=== PATIENT | female | born 1945 | race Caucasian/White ===

== ENCOUNTER 2016-03-14 06:20 | Inpatient (IN) ==
[2016-03-14 07:20] LABS: Basophils % 0.5 %; Eosinophils # 0.2 K/mcL (0.0-0.6); Eosinophils % 2.6 %; Hematocrit 38.3 % (35.3-44.9); Immature Granulocytes % 0.9 % (0-4); Lymphocytes # 1.6 K/mcL (0.6-4.6); Lymphocytes % 27.9 %; Mean Corpuscular HGB Conc 33.9 g/dL (31.6-35.5); Mean Corpuscular Hemoglobin 29.4 pg (28.0-33.3); Mean Corpuscular Volume 86.7 fL (83.0-100.0); Monocytes # 0.3 K/mcL (0.0-1.3); Monocytes % 5.5 %; Neutrophils # 3.7 K/mcL (1.6-8.9); Platelet Count 136 K/mcL (140-400); Red Blood Count 4.42 M/mcL (3.82-4.97); Segmented Neutrophils % 62.6 %
[2016-03-14] MEDS ORDERED: Aspirin 81 MG TAB.CHEW PO ONE (07:24)
[2016-03-14] MEDS ORDERED: Ondansetron 4 MG/2 ML VIAL IVP ONE (07:33)
--- NOTE | 2016-03-14 07:35 | Emergency Department Note ---
Disposition Clinical Impression: Atypical chest pain Chest pain Qualifiers: Chest pain type: unspecified Qualified Code(s): R07.9 - Chest pain, unspecified ST elevation myocardial infarction (STEMI) Qualifiers: Involved coronary artery: unspecified coronary artery Qualified Code(s): I21.3 - ST elevation (STEMI) myocardial infarction of unspecified site Disposition: Admitted As Inpatient Condition: Good General Adult HPI - General Chief complaint: ED Chest Pain Stated complaint: chest pain/nausea Time Seen by Provider: 03/14/16 07:17 Source: patient Limitations: no limitations Nursing Notes Reviewed: Yes Vital Signs Reviewed: Yes - History of Present Illness Pain Scale: 0 - Related Data Home Medications Medication Instructions Recorded Confirmed Doxepin HCl 100 mg PO HS 03/14/16 03/14/16 Insulin Glargine,Hum.rec.anlog 30 unit SQ DAILY 03/14/16 03/14/16 [Lantus Solostar] Meloxicam 15 mg PO DAILY 03/14/16 03/14/16 Metoprolol Tartrate [Lopressor] 50 mg PO BID 03/14/16 03/14/16 Omeprazole [PriLOSEC] 40 mg PO DAILY 03/14/16 03/14/16 Pravastatin Sodium [Pravachol] 40 mg PO DAILY 03/14/16 03/14/16 Sitagliptin Phos/Metformin HCl 1 tab PO DAILY 03/14/16 03/14/16 [Janumet Xr 50-1,000 mg Tablet] Triamterene/Hydrochlorothiazid 1 tab PO DAILY 03/14/16 03/14/16 [Triamterene-Hctz 75-50 mg Tab] Allergies Allergy/AdvReac Type Severity Reaction Status Date / Time nitrofurantoin Allergy Hives Verified 03/14/16 06:22 [From Macrodantin] Penicillins Allergy Hives Verified 03/14/16 06:22 Past Medical History - Past Medical History Medical history: Reports: coronary artery disease, diabetes, hyperlipidemia, hypertension, myocardial infarction Psychiatric history: Reports: no psych history SENIOR TECHNICAL SPECIALIST history: Reports: no SENIOR TECHNICAL SPECIALIST history - Social History Smoking Status: Never smoker Smokeless Tobacco Status: No Alcohol use: Reports: none Drug use: Reports: none Physical Exam - General Limitations: no limitations General appearance: alert Course Vital Signs Temperature 97.4 F L 03/14/16 06:24 Pulse Rate 70 03/14/16 06:24 Respiratory Rate 20 03/14/16 06:24 Blood Pressure 155/80 03/14/16 06:24 O2 Sat by Pulse Oximetry 98 03/14/16 06:24 Temperature 97.4 F L 03/14/16 06:24 Pulse Rate 96 03/14/16 10:57 Respiratory Rate 18 03/14/16 10:57 Blood Pressure 171/105 03/14/16 10:45 O2 Sat by Pulse Oximetry 98 03/14/16 10:57 Oxygen Delivery Oxygen Delivery Nasal Cannula Medical Decision Making - MDM Narrative Medical decision making narrative: I examined this patient and my medical decision-making was reviewed with the CUSTOMER RELATIONS COORDINATOR/PA/Advanced Practice Nurse/Resident Physician. I agree with the documented findings, disposition and treatment plan as described except to the extent set forth below. Evaluate this patient Dr. Caldera, agree with his evaluation and management plan, supervise care the patient's stay. Patient started having chest pain about 9:00 last night and it went away that starting at 2 AM. Left-sided into her left shoulder. Says feels similar to when she had her stents placed she said that has been done years ago was done in [place] by Dr. Quintanilla. She has also been nauseous but has not vomited. She appears pale here but has not been having any vomiting no blood noted dark- colored stool. She has no abdominal pain. Under nitroglycerin trial on her aspirin cardiac workup and she will need admission. She is in agreement with this plan. Chest X-Ray 03/14/16 07:24 IMPRESSION: No acute cardiopulmonary disease. D/ / Eb Kong MD / Eb Kong MD Interpreting Provider: Eb Kong MD 0900 hrs.: Patient did not get any relief with her nitroglycerin trial. Because of her pain were a CTA of her chest to rule out dissection. She is given fluids here. Her troponin is slightly positive. Once her CTA is read and if that is negative then we will start her on aspirin. She is in agreement with this plan. 1010 hrs.: Hospitalist except's patients want her started on heparin for possible unstable angina. Patient's admitted this time. Critical care time excluding any seperately procedures 30 minutes. 1035 hrs.: Patient was admitted and she called me [facility] get chest pain again. On her monitor look like she had some ST segment elevations were repeating EKG and she did. STEMI alert was called. She had already gotten aspirin and heparin be started on Plavix called the cardiology and they have taken her to the Competency Evaluated Nurse Aide at this time impression is chest pain with acute STEMI. Patient's EKGs were compared with the first ones noting that she did not have a STEMI on presentation. This evolved during her observation time here in the emergency department. - Lab Data Result diagrams: 03/14/16 08:26 03/14/16 08:26 Lab Results 03/14/16 03/14/16 03/14/16 Range/Units 07:16 07:16 07:16 WBC 5.9 (4.3-11.1) K/mcL RBC 4.42 (3.82-4.97) M/mcL Hgb 13.0 (11.5-15.4) g/dL Hct 38.3 (35.3-44.9) % MCV 86.7 (83.0-100.0) fL MCH 29.4 (28.0-33.3) pg MCHC 33.9 (31.6-35.5) g/dL RDW 13.0 (11.5-14.5) % Plt Count 136 L (140-400) K/mcL MPV 9.0 L (9.4-12.4) fL Immature Gran % 0.9 (0-4) % Seg Neutrophils % 62.6 % Lymphocytes % 27.9 % Monocytes % 5.5 % Eosinophils % 2.6 % Basophils % 0.5 % Neutrophils # 3.7 (1.6-8.9) K/mcL Lymphocytes # 1.6 (0.6-4.6) K/mcL Monocytes # 0.3 (0.0-1.3) K/mcL Eosinophils # 0.2 (0.0-0.6) K/mcL Basophils # 0.0 (0.0-0.2) K/mcL PT (9.4-12.1) Seconds INR APTT (26.0-36.0) Seconds Sodium 135 L (136-145) mEq/L Potassium 3.6 (3.5-4.5) mEq/L Chloride 98 (98-109) mEq/L Carbon Dioxide 24 (19-29) mEq/L BUN 29 H (7-20) mg/dL Creatinine 1.16 H (0.57-1.11) mg/dL Est GFR ( Amer) 56 L (> 60) Est GFR (Non-Af Amer) 46 L (> 60) BUN/Creatinine Ratio 25 (6-26) Glucose 237 H (70-99) mg/dL Calculated Osmolality 294 (280-300) Calcium 9.4 (8.6-10.8) mg/dL Total Bilirubin 0.3 (0.2-1.2) mg/dL Direct Bilirubin 0.1 (0.0-0.5) mg/dL Indirect Bilirubin 0.2 (0.0-1.2) mg/dL AST 15 (5-34) Units/L ALT 10 (0-55) Units/L Alkaline Phosphatase 71 (38-126) Units/L Troponin I 0.03 (0-0.03) ng/mL Serum Total Protein 6.8 (6.0-8.3) g/dL Albumin 3.6 (3.5-5.0) g/dL Globulin 3.2 (2.4-3.5) g/dL Albumin/Globulin Ratio 1.1 (1.1-2.2) 03/14/16 03/14/16 03/14/16 Range/Units 08:26 08:26 08:26 WBC 6.8 (4.3-11.1) K/mcL RBC 4.27 (3.82-4.97) M/mcL Hgb 12.6 (11.5-15.4) g/dL Hct 37.5 (35.3-44.9) % MCV 87.8 (83.0-100.0) fL MCH 29.5 (28.0-33.3) pg MCHC 33.6 (31.6-35.5) g/dL RDW 13.1 (11.5-14.5) % Plt Count 139 L (140-400) K/mcL MPV 9.3 L (9.4-12.4) fL Immature Gran % 0.7 (0-4) % Seg Neutrophils % 74.6 % Lymphocytes % 19.0 % Monocytes % 3.8 % Eosinophils % 1.3 % Basophils % 0.6 % Neutrophils # 5.1 (1.6-8.9) K/mcL Lymphocytes # 1.3 (0.6-4.6) K/mcL Monocytes # 0.3 (0.0-1.3) K/mcL Eosinophils # 0.1 (0.0-0.6) K/mcL Basophils # 0.0 (0.0-0.2) K/mcL PT 10.8 (9.4-12.1) Seconds INR 1.0 APTT 27.1 (26.0-36.0) Seconds Sodium 137 (136-145) mEq/L Potassium 4.1 (3.5-4.5) mEq/L Chloride 98 (98-109) mEq/L Carbon Dioxide 26 (19-29) mEq/L BUN 29 H (7-20) mg/dL Creatinine 1.08 (0.57-1.11) mg/dL Est GFR ( Amer) > 60 (> 60) Est GFR (Non-Af Amer) 50 L (> 60) BUN/Creatinine Ratio 27 H (6-26) Glucose 241 H (70-99) mg/dL Calculated Osmolality 298 (280-300) Calcium 9.4 (8.6-10.8) mg/dL Total Bilirubin (0.2-1.2) mg/dL Direct Bilirubin (0.0-0.5) mg/dL Indirect Bilirubin (0.0-1.2) mg/dL AST (5-34) Units/L ALT (0-55) Units/L Alkaline Phosphatase (38-126) Units/L Troponin I (0-0.03) ng/mL Serum Total Protein (6.0-8.3) g/dL Albumin (3.5-5.0) g/dL Globulin (2.4-3.5) g/dL Albumin/Globulin Ratio (1.1-2.2) 03/14/16 Range/Units 08:26 WBC (4.3-11.1) K/mcL RBC (3.82-4.97) M/mcL Hgb (11.5-15.4) g/dL Hct (35.3-44.9) % MCV (83.0-100.0) fL MCH (28.0-33.3) pg MCHC (31.6-35.5) g/dL RDW (11.5-14.5) % Plt Count (140-400) K/mcL MPV (9.4-12.4) fL Immature Gran % (0-4) % Seg Neutrophils % % Lymphocytes % % Monocytes % % Eosinophils % % Basophils % % Neutrophils # (1.6-8.9) K/mcL Lymphocytes # (0.6-4.6) K/mcL Monocytes # (0.0-1.3) K/mcL Eosinophils # (0.0-0.6) K/mcL Basophils # (0.0-0.2) K/mcL PT (9.4-12.1) Seconds INR APTT (26.0-36.0) Seconds Sodium (136-145) mEq/L Potassium (3.5-4.5) mEq/L Chloride (98-109) mEq/L Carbon Dioxide (19-29) mEq/L BUN (7-20) mg/dL Creatinine (0.57-1.11) mg/dL Est GFR ( Amer) (> 60) Est GFR (Non-Af Amer) (> 60) BUN/Creatinine Ratio (6-26) Glucose (70-99) mg/dL Calculated Osmolality (280-300) Calcium (8.6-10.8) mg/dL Total Bilirubin (0.2-1.2) mg/dL Direct Bilirubin (0.0-0.5) mg/dL Indirect Bilirubin (0.0-1.2) mg/dL AST (5-34) Units/L ALT (0-55) Units/L Alkaline Phosphatase (38-126) Units/L Troponin I 0.05 H* (0-0.03) ng/mL Serum Total Protein (6.0-8.3) g/dL Albumin (3.5-5.0) g/dL Globulin (2.4-3.5) g/dL Albumin/Globulin Ratio (1.1-2.2)
[2016-03-14 07:37] LABS: Albumin 3.6 g/dL (3.5-5.0); Albumin/Globulin Ratio 1.1 (1.1-2.2); Bilirubin,Direct 0.1 mg/dL (0.0-0.5); Bilirubin,Indirect 0.2 mg/dL (0.0-1.2); Bilirubin,Total 0.3 mg/dL (0.2-1.2); Calcium 9.4 mg/dL (8.6-10.8); Globulin 3.2 g/dL (2.4-3.5); Potassium 3.6 mEq/L (3.5-4.5); Total Protein 6.8 g/dL (6.0-8.3)
[2016-03-14] MEDS: Nitroglycerin 0.4 MG TAB.SUBL SL ONE ×2 (07:45→08:09)
[2016-03-14 08:34] LABS: Basophils % 0.6 %; Eosinophils # 0.1 K/mcL (0.0-0.6); Eosinophils % 1.3 %; Hematocrit 37.5 % (35.3-44.9); Hemoglobin 12.6 g/dL (11.5-15.4); Immature Granulocytes % 0.7 % (0-4); Lymphocytes # 1.3 K/mcL (0.6-4.6); Mean Corpuscular HGB Conc 33.6 g/dL (31.6-35.5); Mean Corpuscular Hemoglobin 29.5 pg (28.0-33.3); Mean Corpuscular Volume 87.8 fL (83.0-100.0); Mean Platelet Volume 9.3 fL (9.4-12.4); Monocytes # 0.3 K/mcL (0.0-1.3); Monocytes % 3.8 %; Neutrophils # 5.1 K/mcL (1.6-8.9); Platelet Count 139 K/mcL (140-400); Red Blood Count 4.27 M/mcL (3.82-4.97); Red Cell Distribution Width 13.1 % (11.5-14.5); Segmented Neutrophils % 74.6 %
[2016-03-14] MEDS ORDERED: 0.9 % Sodium Chloride 500 ML IVC ONE (08:37)
--- NOTE | 2016-03-14 08:37 | Emergency Department Note ---
Disposition Clinical Impression: Atypical chest pain, NSTEMI (non-ST elevated myocardial infarction) Chest pain Qualifiers: Chest pain type: unspecified Qualified Code(s): R07.9 - Chest pain, unspecified Disposition: Admitted As Inpatient Condition: Good Referrals: Susan Kruger MD [Primary Care Provider] - Forms: ED Satisfaction Letter Time of Disposition: 10:05 Chest Pain HPI - General Chief Complaint: ED Chest Pain Stated Complaint: chest pain/nausea Time Seen by Provider: 03/14/16 07:17 Source: patient Limitations: no limitations Vital Signs Reviewed: Yes Nursing Notes Reviewed: Yes - History of Present Illness HPI Narrative: Patient presents emergency room with chest pain onset approximately 3-1/2 hours prior to arrival. She has a history of coronary artery disease and had stents placed in 2002. She feels like the symptoms are identical to that at this time. She denies any medications at home. She does not take aspirin and does not have nitroglycerin. She denies any recent illnesses fevers chills nausea vomiting or diarrhea. Denies headache vision changes. 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 Denies: nausea, vomiting , diaphoresis, dyspnea, syncope, palpitations, fever, cough, leg swelling Treatments prior to arrival chest pain: none - Related Data Home Medications Medication Instructions Recorded Confirmed Doxepin HCl 100 mg PO HS 03/14/16 03/14/16 Insulin Glargine,Hum.rec.anlog 30 unit SQ DAILY 03/14/16 03/14/16 [Lantus Solostar] Meloxicam 15 mg PO DAILY 03/14/16 03/14/16 Metoprolol Tartrate [Lopressor] 50 mg PO BID 03/14/16 03/14/16 Omeprazole [PriLOSEC] 40 mg PO DAILY 03/14/16 03/14/16 Pravastatin Sodium [Pravachol] 40 mg PO DAILY 03/14/16 03/14/16 Sitagliptin Phos/Metformin HCl 1 tab PO DAILY 03/14/16 03/14/16 [Janumet Xr 50-1,000 mg Tablet] Triamterene/Hydrochlorothiazid 1 tab PO DAILY 03/14/16 03/14/16 [Triamterene-Hctz 75-50 mg Tab] Allergies Allergy/AdvReac Type Severity Reaction Status Date / Time nitrofurantoin Allergy Hives Verified 03/14/16 06:22 [From Macrodantin] Penicillins Allergy Hives Verified 03/14/16 06:22 All systems ED: reviewed and negative except as stated. Constitutional: Denies: fever, chills, weakness Eyes: Denies: eye pain, eye discharge Cardiovascular: Reports: chest pain. Denies: palpitations, dyspnea on exertion , orthopnea Respiratory: Denies: cough, dyspnea, wheezes, hemoptysis, stridor, sputum production Gastrointestinal: Denies: abdominal pain, nausea, vomiting, diarrhea Genitourinary: Denies: urgency, dysuria, frequency, hematuria Musculoskeletal: Reports: back pain. Denies: neck pain, joint swelling, arthralgia, myalgia Integumentary: Denies: rash, abrasion, lesions, change in hair/nails Neurological: Denies: headache, weakness, numbness, paresthesias Psychiatric: Denies: anxiety, depression, suicidal thoughts, homicidal thoughts Hematological/Lymphatic: Denies: easy bleeding, easy bruising, lymphadenopathy Allergic/Immunologic: Denies: facial swelling, urticaria Chest Pain PMH - Past Medical History Medical history: Reports: coronary artery disease, diabetes, hyperlipidemia, hypertension, myocardial infarction Psychiatric history: Reports: no psych history 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 Absent : tenderness - Respiratory Respiratory exam: Present: normal lung sounds bilaterally. Absent: respiratory distress, wheezes, stridor, accessory muscle use - Cardiovascular Cardiovascular exam: Present: regular rate, normal rhythm, normal heart sounds. Absent: systolic murmur, diastolic murmur - Abdominal Exam Abdominal exam: Present: soft, Non-Tender, normal bowel sounds. Absent: tenderness, distention, guarding, rebound, rigidity, hyperactive bowel sounds, trauma, incision, psoas sign, Caputo's sign, Rovsing's sign, tenderness at McBurney's Point - Extremities Exam Extremities exam: Present: normal inspection, full ROM, normal capillary refill. Absent: tenderness, pedal edema - Back Exam Back exam: Present: normal inspection, full ROM. Absent: tenderness, CVA tenderness (R), CVA tenderness (L) - Neurological Exam Neurological exam: Present: alert, oriented X3, CN II-XII intact, normal gait - Psychiatric Psychiatric exam: Present: normal affect, normal mood - Skin Skin exam: Present: warm, dry, intact, normal color Course Course Narrative: Patient seen and examined the time of arrival. See history of present illness. 70-year-old female presents with complaint of chest pain radiating into the arms. She has a history of coronary artery disease with stents placed in 2002. She has not been compliant with aspirin therapy and has not followed up with a ornamental plasterer helper in over 3-4 years. Patient does not have nitroglycerin at home. She presented further evaluation today. Symptom onset is a 10 out of 10 on presentation. Vital signs are stable she is afebrile. Patient lungs are clear heart is regular abdomen soft. She has no other acute findings and evaluation. Concern is noted for coronary artery disease as well as acute coronary syndrome secondary to presentation and history. Aspirin provided on presentation as well as the nitroglycerin trial. Patient will be reevaluated with labs EKG chest x-ray troponin. She will most likely need admission the hospital for definitive management. Disposition pending this workup and treatment. Patient was informed that she will most likely be admitted and she is, this plan at this time. Symptom control to be initiated at this point - Reevaluation(s) Reevaluation #1: Patient's labs are coming back stable at this time. Went back and reevaluated the patient after the nitroglycerin trial. Her symptoms were not resolved in an appropriate manner based on the pain presentation. The medication order this time. She is also describing substernal pain that radiates into her back and down her bilateral arms. A detailed conversation with her about aortic dissection or aneurysm in her family and she says that she does not have that she knows of. Symptom presentation is concerning for that based on the story at this time. Patient will have a CT dissection study ordered as well as fluid boluses for marginal creatinine. Otherwise patient is stable resting comfortable in the bed pain medication nausea medication be provided. Once imaging studies results officially admitted. Pain to be controlled at this time Time: 08:52 Reevaluation #2: CT angios of the chest is negative for acute dissection. Pain medication as well as Nitropaste to be applying considering patient appears to have what is a non-STEMI with unstable angina based on symptom history. Detailed review the patient's presentation symptoms was discussed with the hospitalist Dr. Wright. He had no other recommendations at this time except to start a heparin drip on this patient. Clinically there is no contra indication is. She has no dark stools she is not anemic she has had no history of GI bleed. Patient still resting comfortably in the bilateral signs are normal pain medication provided. Admission process to be completed at this time. Time: 10:05 Vital Signs Temperature 97.4 F L 03/14/16 06:24 Pulse Rate 70 03/14/16 06:24 Respiratory Rate 20 03/14/16 06:24 Blood Pressure 155/80 03/14/16 06:24 O2 Sat by Pulse Oximetry 98 03/14/16 06:24 Temperature 97.4 F L 03/14/16 06:24 Pulse Rate 79 03/14/16 08:07 Respiratory Rate 18 03/14/16 08:07 Blood Pressure 156/93 03/14/16 08:07 O2 Sat by Pulse Oximetry 97 03/14/16 08:07 Oxygen Delivery Oxygen Delivery Nasal Cannula Chest Pain - MDM Narrative Medical decision making narrative: Chest pain, ACS rule out - Medical Records Medical records reviewed: Yes I reviewed the patient's medical records. - Lab Data Lab results reviewed: Yes I reviewed the patient's lab results. Result diagrams: 03/14/16 07:16 03/14/16 07:16 Lab Results 03/14/16 03/14/16 03/14/16 Range/Units 07:16 07:16 07:16 WBC 5.9 (4.3-11.1) K/mcL RBC 4.42 (3.82-4.97) M/mcL Hgb 13.0 (11.5-15.4) g/dL Hct 38.3 (35.3-44.9) % MCV 86.7 (83.0-100.0) fL MCH 29.4 (28.0-33.3) pg MCHC 33.9 (31.6-35.5) g/dL RDW 13.0 (11.5-14.5) % Plt Count 136 L (140-400) K/mcL MPV 9.0 L (9.4-12.4) fL Immature Gran % 0.9 (0-4) % Seg Neutrophils % 62.6 % Lymphocytes % 27.9 % Monocytes % 5.5 % Eosinophils % 2.6 % Basophils % 0.5 % Neutrophils # 3.7 (1.6-8.9) K/mcL Lymphocytes # 1.6 (0.6-4.6) K/mcL Monocytes # 0.3 (0.0-1.3) K/mcL Eosinophils # 0.2 (0.0-0.6) K/mcL Basophils # 0.0 (0.0-0.2) K/mcL Sodium 135 L (136-145) mEq/L Potassium 3.6 (3.5-4.5) mEq/L Chloride 98 (98-109) mEq/L Carbon Dioxide 24 (19-29) mEq/L BUN 29 H (7-20) mg/dL Creatinine 1.16 H (0.57-1.11) mg/dL Est GFR ( Amer) 56 L (> 60) Est GFR (Non-Af Amer) 46 L (> 60) BUN/Creatinine Ratio 25 (6-26) Glucose 237 H (70-99) mg/dL Calculated Osmolality 294 (280-300) Calcium 9.4 (8.6-10.8) mg/dL Total Bilirubin 0.3 (0.2-1.2) mg/dL Direct Bilirubin 0.1 (0.0-0.5) mg/dL Indirect Bilirubin 0.2 (0.0-1.2) mg/dL AST 15 (5-34) Units/L ALT 10 (0-55) Units/L Alkaline Phosphatase 71 (38-126) Units/L Troponin I 0.03 (0-0.03) ng/mL Serum Total Protein 6.8 (6.0-8.3) g/dL Albumin 3.6 (3.5-5.0) g/dL Globulin 3.2 (2.4-3.5) g/dL Albumin/Globulin Ratio 1.1 (1.1-2.2) - Radiology Data Radiology results reviewed: Yes I reviewed the patient's radiology results. Chest x-ray shows no acute infiltrate does have a mildly widened mediastinum. - EKG Data EKG attestation: Yes I reviewed and interpreted this EKG. EKG shows normal: sinus rhythm, axis, intervals, QRS complexes Rate: normal Rhythm: NSR [place]/QRS: normal T wave inversions noted in: aVL, v2, v3 When compared to previous EKG there are: no significant changes Interpretation: no acute changes, unchanged when compared to prior tracing (date ) Heart Score - Score History: Highly Suspicious EKG: Non Specific repolarisation Disturbance Age: Greater than 65 Risk Factors: Equal/Greater than 3 risk factor or history of atherosclerotic disease Troponin: Less than normal limit HEART Score Total: 7 Critical Care Time Critical Care Time: Yes Total Critical Care Time: 30 Attestation: Critical care time is independent of direct patient management procedures
[2016-03-14] MEDS ORDERED: *HR* Morphine 2 MG/ML SYRINGE IV ONE (08:38)
[2016-03-14] MEDS ORDERED: Ondansetron 4 MG/2 ML VIAL IV ONE ×2 (08:38→09:56)
[2016-03-14 08:39] LABS: Prothrombin Time 10.8 Seconds (9.4-12.1)
[2016-03-14 08:42] LABS: Activated Partial Thrombo Time 27.1 Seconds (26.0-36.0)
[2016-03-14 08:47] LABS: BUN/Creatinine Ratio 27 (6-26); Blood Urea Nitrogen 29 mg/dL (7-20); Calcium 9.4 mg/dL (8.6-10.8); Carbon Dioxide 26 mEq/L (19-29); Chloride 98 mEq/L (98-109); Glucose 241 mg/dL (70-99); Osmolality,Calculated 298 (280-300); Potassium 4.1 mEq/L (3.5-4.5); Sodium 137 mEq/L (136-145); eGFR For African Americans > 60 (> 60); eGFR For Non-African Americans 50 (> 60)
[2016-03-14] MEDS ORDERED: *HR* HYDROmorphone (PF) 1 MG/ML SYRINGE IV ONE (09:56)
[2016-03-14] MEDS ORDERED: *HR* Heparin 5,000 UNIT/ML VIAL IVP PRN ×2 (10:03)
[2016-03-14] MEDS ORDERED: Nitroglycerin 1 INCH/GM PACKET TP ONE (10:03)
[2016-03-14] MEDS ORDERED: *HR* Heparin 5,000 UNIT/ML VIAL IVP ONE (10:03)
[2016-03-14] MEDS: Heparin 25,000 UNIT/500 ML D5W 25,000 UNIT/500 ML MLS IVC SCH (10:22)
[2016-03-14] MEDS ORDERED: *HR* Dextrose 50 % in Water (Syg) 50 ML SYRINGE IVP PRN (10:30)
[2016-03-14] MEDS ORDERED: Naloxone 0.4 MG/ML INJ IVP PRN (10:30)
[2016-03-14] MEDS ORDERED: *HR* HYDROmorphone (PF) 1 MG/ML SYRINGE IVP PRN (10:30)
[2016-03-14] MEDS ORDERED: D5% in Water 1,000 ML IV PRN (10:30)
[2016-03-14] MEDS ORDERED: Ondansetron 4 MG/2 ML VIAL IVP PRN (10:30)
[2016-03-14] MEDS ORDERED: Dextrose Gel 15 GM PO PRN ×2 (10:30)
[2016-03-14] MEDS ORDERED: Acetaminophen 325 MG TABLET PO PRN (10:30)
--- NOTE | 2016-03-14 10:37 | Internal Med History&Physical ---
Date of Encounter: 03/14/16 Time of Encounter: 10:35 Assessment and Plan (1) NSTEMI (non-ST elevated myocardial infarction) Current visit: Yes Status: Acute Possible non-STEMI with unstable angina Follow troponins, start heparin drip Continue aspirin, metoprolol, Lipitor, nitro paste, dilaudid telemetry, cardiology consult echo Lipid panel (2) Hypertension Current visit: Yes Status: Acute Accelerated hypertension May order hydralazine as needed Qualifiers: Hypertension type: essential hypertension Qualified Code(s): I10 - Essential (primary) hypertension (3) Hyperlipidemia Current visit: Yes Status: Acute Qualifiers: Hyperlipidemia type: unspecified Qualified Code(s): E78.5 - Hyperlipidemia , unspecified (4) TIA (transient ischemic attack) Current visit: Yes Status: Acute TIA in the past Noncompliant with aspirin Qualifiers: Transient cerebral ischemia type: unspecified Qualified Code(s): G45.9 - Transient cerebral ischemic attack, unspecified (5) Diabetes Current visit: Yes Status: Acute Continue insulin sliding scale Omeprazole for GI prophylaxis and heparin drip for DVT prophylaxis The patient will be admitted as inpatient, she is expected stimulant to midnight. Full code. Time spent on this admission 40 minutes. 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 Jones is a 70 year old female with a past medical history of CAD status post stent in 2002, diabetes 2 insulin-dependent, hypertension, hyperlipidemia, noncompliant with aspirin after she had a TIA a few years ago. The patient says that she started complaining of some discomfort last night at around 9 PM but the chest pressure got worse at 2 AM. It was 10 out of 10 in intensity radiating to her back and both of her arms just like the episode where she had stents placed in 2002. EKG shows new T-wave inversions in the septal leads. CT of the chest and abdomen was performed showing no pulmonary emboli or aortic dissection and showed small bilateral groundglass opacities most likely atelectases. She denies any cough but is complaining of the severe chest pain. Blood pressure is 157/87. Her troponin has increased from 0.03 up to 0.05 in a little more than an hour of difference. The patient had some nitroglycerin sublingual which did not improve the pain much. She feels short of breath and feels nauseous. Past Med Surg Social Fam HX - Past Medical History Medical history: coronary artery disease (Status post stenting 2002), diabetes ( Insulin-dependent), hyperlipidemia, hypertension, myocardial infarction, TIA ( Last echocardiogram shows diastolic dysfunction grade 1 ejection fraction of 65% ), other (TIA, UTI, obstructive sleep apnea, cholelithiasis and hepatic steatosis per CT scan) Psychiatric history: no psych history - Past Surgical History Surgical History: appendectomy, other (Tubal ligation) - Social History Smoking Status: Never smoker Smokeless Tobacco Status: No Alcohol use: none Drug use: none - Additional Family History Additional family history: Father and mother with myocardial infarction in their 70s Internal Medicine - H&P: Meds Doxepin HCl 100 mg PO HS 03/14/16 [History] Insulin Glargine,Hum.rec.anlog [Lantus Solostar] 30 unit SQ DAILY 03/14/16 [ History] Meloxicam 15 mg PO DAILY 03/14/16 [History] Metoprolol Tartrate [Lopressor] 50 mg PO BID 03/14/16 [History] Omeprazole [PriLOSEC] 40 mg PO DAILY 03/14/16 [History] Pravastatin Sodium [Pravachol] 40 mg PO DAILY 03/14/16 [History] Sitagliptin Phos/Metformin HCl [Janumet Xr 50-1,000 mg Tablet] 1 tab PO DAILY [History] Triamterene/Hydrochlorothiazid [Triamterene-Hctz 75-50 mg Tab] 1 tab PO DAILY [History] Allergies nitrofurantoin [From Macrodantin] Allergy (Verified 03/14/16 06:22) Hives Penicillins Allergy (Verified 03/14/16 06:22) Hives All Systems PM: A 10-system review of systems was performed and is negative for pertinent findings except as documented above in the HPI. Review of systems: Complains of nausea, very weak, no abdominal pain or diarrhea. Other systems out of the 10 reviewed were negative - Constitutional Vitals: Temp Pulse Resp BP Pulse Ox 97.4 F L 91 18 157/87 98 03/14/16 06:24 03/14/16 09:40 03/14/16 09:40 03/14/16 09:40 03/14/16 09:40 General appearance: Present: A&O X 3, obese - Head Head exam: Present: atraumatic, normocephalic - Eye Eye exam: Present: PERRL, conjuntiva pink, sclera anicteric Pupils: Present: PERRL - Neck Neck exam general surgery: Present: supple, trachea midline. Absent: lymphadenopathy - Respiratory Respiratory exam: Present: CTAB. Absent: accessory muscle use, rales, rhonchi, wheezes - Cardiovascular Cardiovascular exam: Present: RRR, +S1, +S2. Absent: diastolic murmur, gallop, rubs, systolic murmur - GI/Abdominal GI/Abdominal exam: Present: normal bowel sounds, soft, no peritoneal signs. Absent: distended, tenderness - Extremities Exam Extremities exam: Present: warm, radial pulses palpable and symetrical. Absent : calf tenderness, cyanotic, pedal edema - Neurological Exam Neurological exam: Present: CN II-XII intact, oriented X3, no focal deficits. Absent: pronater drift, facial droop, speech deficit - Skin Skin exam: Present: dry, intact Internal Med - H&P Results - Labs CBC & Chem 7: 03/14/16 08:26 03/14/16 08:26
[2016-03-14] MEDS ORDERED: *HR* Ticagrelor 90 MG TABLET ONE (11:05)
[2016-03-14] MEDS ORDERED: *HR* Midazolam HCl 5 MG/5 ML VIAL IVP ONE (11:09)
[2016-03-14] MEDS ORDERED: *HR* FentaNYL (PF) 250 MCG/5 ML VIAL ONE (11:09)
[2016-03-14] MEDS ORDERED: 0.9 % Sodium Chloride 1,000 ML ONE ×2 (11:12→13:11)
[2016-03-14] MEDS ORDERED: Nitroglycerin 1 INCH/GM PACKET TP SCH (12:00)
--- NOTE | 2016-03-14 12:11 | Cardiology Consult Note ---
Date of Encounter: 03/14/16 Time of Encounter: 12:00 Assessment and Plan (1) ST elevation myocardial infarction (STEMI) Current Visit: Yes Status: Acute Per Cardiology: Admitted to hospitalist service from ER. Has history of CAD with previous stenting in 2002. Initial troponin 0.03 and subsequent troponin 0.05. Initial ECG showed ST elevation in inferior leads (not present on comparison ECG from 2010). Subsequent ECG showed worsening ST elevations in inferior leads. STEMI alert activated and patient taken to woven label designer by Dr. Susan Zapata. Patient is status post drug-eluting stent to proximal circumflex and MICHELLE to mid circumflex lesions. Currently on aspirin, statin, beta leonela, and IV heparin drip-- will stop. S/p Brilinta load. Will start plavix. Echo pending. May need staged PCI of mid-distal LAD prior to DC vs outpatient staged PCI (will monitor during stay). Will hydrate with IVF since recieved dye load from CT and from [facility]. Baseline kidney function normal, will monitor. Will place Cardiac Rehab consult. Patient discussed and reviewed with Dr. Adelaida Zapata. All questions answered. Qualifiers: Involved coronary artery: left circumflex coronary artery Qualified Code(s) : I21.21 - ST elevation (STEMI) myocardial infarction involving left circumflex coronary artery Discussion w patient/family: The assessment and plan as outlined above was discussed with the patient and/or family members who expressed understanding and agreement. All questions were answered. Thank you for involving us in the care of your patient. Please call with any questions. History of Present Illness Consult date: 03/14/16 Requesting physician: Diego Erazo Consult reason: Inferior STEMI Chief complaint: CP History of present illness: Ms. Jones is a 70 year old female with a relevant past medical history of CAD, diabetes mellitus type 2, and hypertension. Cardiology consult placed this morning for mild troponin elevation from 0.03 to 0.05. Shortly thereafter and prior to evaluation, STEMI alert called and patient taken to catheterization lab for inferior STEMI. Patient reports her normal state of health up until yesterday evening. Prior to this event she denied any chest pain, shortness of breath, palpitations. She denies any active bleeding or blood loss. Denies any palpitations, dizziness, syncope, falls. Reports last catheterization in 2002 with stenting. She reports she smoked about pack per day for 8 years from age [age]. She reports yesterday evening difficulty with going to sleep. She awakened at 2 AM with midsternal chest "hurting" with radiation to her bilateral arms and mid scapular region. She reports accompanying nausea. Reports symptoms similar to her previous [place] and stenting 2002. Past Med Surg Social Fam HX - Past Medical History Attestation: Yes The following information was validated with the patient. Source: patient, old records reviewed Medical history: coronary artery disease, diabetes, hyperlipidemia, hypertension , myocardial infarction Psychiatric history: no psych history - Past Surgical History Surgical History: appendectomy, other (Tubal ligation) - Social History Smoking Status: Former smoker Packs per day: 1ppd for 8 years age [age] Smokeless Tobacco Status: No Alcohol use: none Drug use: none Medications and Allergies Doxepin HCl 100 mg PO HS 03/14/16 [History] Insulin Glargine,Hum.rec.anlog [Lantus Solostar] 30 unit SQ DAILY 03/14/16 [ History] Meloxicam 15 mg PO DAILY 03/14/16 [History] Metoprolol Tartrate [Lopressor] 50 mg PO BID 03/14/16 [History] Omeprazole [PriLOSEC] 40 mg PO DAILY 03/14/16 [History] Pravastatin Sodium [Pravachol] 40 mg PO DAILY 03/14/16 [History] Sitagliptin Phos/Metformin HCl [Janumet Xr 50-1,000 mg Tablet] 1 tab PO DAILY [History] Triamterene/Hydrochlorothiazid [Triamterene-Hctz 75-50 mg Tab] 1 tab PO DAILY [History] Allergies nitrofurantoin [From Macrodantin] Allergy (Verified 03/14/16 06:22) Hives Penicillins Allergy (Verified 03/14/16 06:22) Hives All Systems Review: A 10-system review of systems was performed and is negative for pertinent findings except as documented above in the HPI. - Cardiovascular Cardiovascular: as per HPI, chest pain at rest, radiating jaw, neck or arm pain - Gastrointestinal Gastrointestinal: nausea Physical Examination Vital Signs, Last 4 Hours Pulse Resp Pulse Ox 03/14/16 10:57 96 18 98 General: Conversant HEENT: Atraumatic, Normocephaly Neck: No JVD, Normal carotid pulses Cardiac: Reg Rate and Rhythm, Normal S1 and S2, No Murmur Lungs: Normal Breath Sounds, No Wheeze, Rales, Rhonchi Neuro: Alert and responsive, No focal deficits noted Abdomen: Soft, Non-Tender Skin: No rashes noted on visualized skin Musculoskeletal: No Chest Wall Tenderness Extremities: No Edema, Normal Pulses Results 03/14/16 08:26 03/14/16 08:26 Laboratory Tests 03/14/16 03/14/16 03/14/16 07:16 07:16 08:26 INR 1.0 AST 15 ALT 10 Troponin I 0.03 03/14/16 08:26 INR AST ALT Troponin I 0.05 H* ITS Impressions Chest X-Ray 03/14/16 07:24 IMPRESSION: No acute cardiopulmonary disease. D/ / Eb Kong MD / Eb Kong MD Interpreting Provider: Eb Kong MD Abdomen/Pelvis CTA 03/14/16 08:39 IMPRESSION: 1. No acute process within the chest, abdomen, or pelvis. 2. [id number] atherosclerotic disease of the thoracic and abdominal aorta, without evidence of aneurysm or dissection. 3. No CTA evidence of a pulmonary embolism. 4. Mild bibasilar predominant curvilinear ground-glass opacities is favored to represent atelectasis over pneumonia. 5. Diffuse hepatic steatosis. 6. Cholelithiasis. D/ / 03/14/2016 10:26:25 Dario Sheehan MD / gerry Interpreting Provider: Dario Sheehan MD Chest CTA 03/14/16 08:39 IMPRESSION: 1. No acute process within the chest, abdomen, or pelvis. 2. Xqbr-hn-wupysaeq atherosclerotic disease of the thoracic and abdominal aorta, without evidence of aneurysm or dissection. 3. No CTA evidence of a pulmonary embolism. 4. Mild bibasilar predominant curvilinear ground-glass opacities is favored to represent atelectasis over pneumonia. 5. Diffuse hepatic steatosis. 6. Cholelithiasis. D/ / 03/14/2016 10:26:25 Dario Sheehan MD / ochoayer Interpreting Provider: Dario Sheehan MD Active Medications Acetaminophen (Tylenol) 650 mg PO Q6HR PRN PRN Reason: Mild Pain (1-3) Stop: 09/13/16 10:31 Aspirin (Aspirin) 325 mg PO DAILY ARIANA Stop: 09/14/16 09:01 Atorvastatin Calcium (Lipitor) 80 mg PO HS ARIANA Stop: 09/13/16 10:31 Dextrose/Water (Dextrose 50% (Syg)) 25 ml IVP AD PRN PRN Reason: Hypoglycemia Stop: 09/13/16 10:31 Glucagon (Glucagen) 1 mg IM ONCE PRN PRN Reason: Hypoglycemia Stop: 09/13/16 10:31 Glucose (Gluctose) 15 gm PO ONCE PRN PRN Reason: Hypoglycemia Stop: 09/13/16 10:31 Glucose (Gluctose) 30 gm PO ONCE PRN PRN Reason: Hypoglycemia Stop: 09/13/16 10:31 Heparin Sodium (Porcine) (Heparin) 4,000 unit IVP Q6HR PRN PRN Reason: SEE COMMENTS Stop: 09/13/16 10:04 Heparin Sodium (Porcine) (Heparin) 2,000 unit IVP Q6H PRN PRN Reason: SEE COMMENTS Stop: 09/13/16 10:04 Hydralazine HCl (Hydralazine) 10 mg IVP Q6HR PRN PRN Reason: Hypertension Stop: 09/13/16 10:29 Hydromorphone HCl (Dilaudid) 0.5 mg IVP Q3H PRN PRN Reason: Severe Pain (7-10) Stop: 09/13/16 10:31 Heparin Sodium/Dextrose (Heparin 25,000 Unit/500 Ml D5w) 25,000 unit in 500 mls @ 20.092 mls/hr IVC .Q24H ARIANA; 11.3 UNITS/KG/HR PRN Reason: Protocol Stop: 09/13/16 10:16 Last Admin: 03/14/16 10:22 Dose: 11.3 units/kg/hr, 20.092 mls/hr Sodium Chloride (0.9 % Sodium Chloride) 1,000 mls @ 75 mls/hr IVC .[id number] ARIANA Stop: 09/13/16 10:31 Dextrose (Dextrose 5%) 1,000 mls @ 100 mls/hr IV CONT PRN PRN Reason: HYPOGLYCEMIA Stop: 09/13/16 10:31 Insulin Human Lispro (Humalog) 0 units SQ HS ARIANA PRN Reason: Protocol Stop: 09/13/16 10:46 Insulin Human Lispro (Humalog) 0 units SQ TIDAC ARIANA PRN Reason: Protocol Stop: 09/13/16 11:31 Metoprolol Tartrate (Lopressor) 50 mg PO BID [facility] Stop: 09/13/16 10:31 Naloxone HCl (Narcan) 0.4 mg IVP Q2MIN PRN PRN Reason: Opioid Reversal Stop: 09/13/16 10:31 Nitroglycerin (Nitroglycerin) 1 inch TP Q6HNTG [facility] Stop: 09/13/16 12:01 Omeprazole (Prilosec) 40 mg PO DAILY@0630 ARIANA PRN Reason: Protocol Stop: 09/14/16 06:31 Ondansetron HCl (Zofran) 4 mg IVP Q8HR PRN PRN Reason: Nausea And Vomiting Stop: 09/13/16 10:31 - Imaging and Cardiology Chest Xray: report reviewed Cardiac cath: other (per discussion with Dr. Adelaida Mckeon MICHELLE to Prox Circ and MICHELLE to mid Circ) - EKG Interpretation EKG results cardiology: personally reviewed (Inferior STEMI-- ST elevations noted inferior leads a noted difference in comparable ECG from 2010; subsequent ECG showed worsening ST elevation) Consult Discharge Plan - Plan Referrals: Susan Kruger MD [Primary Care Provider] -
[2016-03-14] MEDS ORDERED: 0.9 % Sodium Chloride 1,000 ML IVC SCH (12:30)
--- NOTE | 2016-03-14 12:35 | Invasive Diagnostic Lab Proc ---
Name: Deann Jones Date of Study: 03/14/2016 Date: 1945 Ht: 65.0in Medical Record#: [id number] Age: 70 Wt: 196.21lb Gender: Female BSA: 1.96 Order #: [id number] BMI: 32.69 Physicians Procedure Physician: Susan Zapata MD, [facility] Referring MD: Referring MD: Staff Name Position Time In Denise Salguero RT (R) Scrub 11:08 AM Julián Varela RN Sales Administration Specialist 11:08 AM Neelam Syed RN Sales Administration Specialist 11:08 AM Brandie Tong RN Monitor 11:08 AM Екатерина Sky RT (R) Monitor 11:42 AM Indications Indication STEMI Procedures Performed Procedure L HRT ARTERY/VENTRICLE ANGIO PRQ CARD REVASC MO 1 VSL Pre-Procedure Checklist Informed consent is complete signed and on chart. H\\T\\P is on chart. ID band is on and ID verified with patient. Pt not NPO for procedure and MD aware. The procedure was described for the patient and questions were answered. Blood Pressure: 171/105 ECG is on chart. Rhythm: NSR Plan of Care Patient will tolerate the procedure without complications. Adequate level of comfort will be maintained. Hemodynamics will remain stable Patient will recover from procedure without complications. Respiratory function will be maintained. Cardiac rhythm will remain stable. Patient temperature will be maintained. Patient and/or family have verbalized understanding of the procedure. Patient Education Intravenous Access Time IV Size Location DC'd Fluid/Drip Rate Units RN 11:00 AM 18g 1 02/26" Patent On Arrival Rt Antecubital 0.9NaCl 25 ml/hr Allergies nitrofurantoin Penicillins Vital Signs Time BP (mmHg) HR (bpm) O2 Sat. RR (bpm) LOC 11:01 AM 171 / 105 98 96 % 16 5 = Fully awake and oriented or at pre-proc level 11:09 AM / % 5 = Fully awake and oriented or at pre-proc level 11:11 AM 165 / 98 100 93 % 19 11:16 AM 170 / 93 100 89 % 19 11:21 AM 174 / 103 101 98 % 18 11:26 AM 184 / 110 100 100 % 21 11:31 AM 162 / 104 100 96 % 18 11:36 AM 161 / 96 102 99 % 18 11:41 AM 150 / 89 101 96 % 18 11:46 AM 151 / 88 104 97 % 21 11:51 AM 154 / 93 103 93 % 17 Procedural Medications Time Medication Dose Units Method Given By 11:09 AM Oxygen 2 L/min nasal cannula Julián Varela RN 11:12 AM Lidocaine 2% 16 ml Subcutaneous Susan Zapata MD, FACC 11:15 AM Versed 2 mg Intravenous Julián Varela RN 11:15 AM Fentanyl 50 mcg Intravenous Julián Varela RN 11:16 AM Oxygen 4 L/min nasal cannula Julián Varela RN 11:17 AM Oxygen 8 L/min nasal cannula Neelam Syed RN 11:20 AM Heparin 1000 units Intravenous Neelam Syed RN 11:28 AM Versed 1 mg Intravenous Julián Varela RN 11:28 AM Fentanyl 25 mcg Intravenous Julián Varela RN 11:28 AM Nitroglycerin 200 mcg Intracoronary Susan Zapata MD, FACC 11:38 AM Nitroglycerin 200 mcg Intracoronary Susan Zapata MD, FACC 11:39 AM Oxygen 6 L/min nasal cannula Julián Varela RN 11:46 AM Nitroglycerin 200 mcg Intracoronary Susan Zapata MD, FACC 11:08 AM Brilinta 180 mg Orally Trudy Bagley RN ASA Classification: CLASS II- Mild systemic disease (i.e. well-controlled diabetes, hypertension, asthma, cigarette smoking) Dean Score Preprocedure Postprocedure Activity 2- Moves 4 extremities sustained head lift Activity 2- Moves 4 extremities sustained head lift Circulation 2- SBP +/= 20 points of pre-anesthetic level Circulation 2- SBP +/= 20 points of pre-anesthetic level Consciousness 2- Awake and alert oriented x 3 Consciousness 2- Awake and alert oriented x 3 O2 Saturation 2- Able to maintain O2 satruation of 92% on room air O2 Saturation 2- Able to maintain O2 satruation of 92% on room air Respiratory 2- Able to deep breathe and cough well Respiratory 2- Able to deep breathe and cough well Total Score 10 Total Score 10 Contrast Agent: Isovue Diagnostic Contrast: 254 ml Total Contrast: 254 ml Fluoro Dose: 1107 mGy Activated Clotting Time Time Seconds to Clot 11:15 AM 203 11:41 AM 400 Procedure Log Time Note Enter By 11:07 AM CathStat 11:07 AM Case Start 11:08 AM Pt arrived to director of laboratory operations 2 at 11:08 [email or web address] 11:08 AM Denise Salguero RT (R) Position: Scrub Time in: : [email or web address] 11:08 AM Julián Varela RN Position: Sales Administration Specialist Time in: : [email or web address] 11:08 AM Neelam Syed RN Position: Sales Administration Specialist Time in: : [email or web address] 11:08 AM Brandie Tong RN Position: Monitor Time in: : [email or web address] 11:08 AM Patient charges- Angio tray pack, Navilyst 3mm J, Pulse Oximetry and ACIST tubing and transducer [email or web address] 11: AM Time: : Brilinta 180 mg Orally Given by Trudy Bagley RN [facility] 11: AM Case Delayed No [email or web address] 11: AM Hair removed from procedure site in procedure lab using clippers. Bilateral groin prepped with Chloraprep by Екатерина Sky RT (R) then patient draped. Skin intact. [email or web address] 11: AM Physician arrived : [email or web address] 11: AM ASA Class CLASS II- Mild systemic disease (i.e. well-controlled diabetes, hypertension, asthma, cigarette smoking) [email or web address] 11: AM Meet and mendez completed [email or web address] 11: AM Sign in performed according to hospital policy. [email or web address] 11:09 AM Procedure start : [email or web address] 11: AM Time: : Oxygen on at 2 L/min per nasal cannula by Julián Varela RN [email or web address] 11: AM Time: : Patient comfortable and pain free: Yes [email or web address] : AM Time: :09LOC: 5 = Fully awake and oriented or at pre-proc level [email or web address] 11:09 AM Clinical Presentation: STEMI or equivalent [email or web address] 11:09 AM prior to arrival pt received 180 mg PO Brillinta, 324 ASA and Heparin bolus in ED [email or web address] 11:10 AM Recorded ECG: IL=878 Condition=Condition 1 11:10 AM Vitals capture started with the following parameters, Patient=Adult, Interval=5 min, Initial Vexunxqk=902 mmHg, Deflation Rate=5 mmHg, Cuff placed on Right Arm 11:11 AM Time out performed according to hospital policy [email or web address] 11:11 AM OQ=908 bpm, FKTW=966/98 mmhg, SpO2=93.0 %, Resp=19 B/min 11:12 AM Pressure channel 1 zero failed. 11:12 AM Pressure channel 1 zeroed. 11:12 AM Time: 11:12 16 ml Lidocaine 2% to right groin Subcutaneous Given by Susan Zapata MD, [facility] [email or web address] 11:12 AM Access obtained by percutaneous puncture. 6Fr 10cm Terumo [place] sheath placed in right Femoral artery. [id number] [email or web address] 11:12 AM 5Fr FL 4 catheter inserted over the wire [facility] [email or web address] 11:12 AM 0.035 145cm Navilyst 3mmJ wire [id number] [email or web address] 11:13 AM L[email or web address] 11[facility]13 AM Recorded Pressure: Ao, HR=92, Condition=Condition 1 (Aorta) Ao 135/95/115 11:14 AM Lesion found in Proximal Circumflex. Pre Stenosis: 95 Pre CAIO Flow: [email or web address] 11:14 AM Catheter removed [facility] 11:14 AM 5Fr FR 4 catheter inserted over the wire [facility] [email or web address] 11:14 AM RCA angiography performed in multiple views. [email or web address] 11:15 AM Time: 11:15 Versed 2 mg Intravenous Given by Julián Varela RN [email or web address] 11:15 AM Time: 11:15 Fentanyl 50 mcg Intravenous Given by Julián Varela RN [email or web address] 11:16 AM JG=367 bpm, YTTC=583/93 mmhg, SpO2=89.0 %, Resp=19 B/min 11:16 AM Time: 11:16 Oxygen on at 4 L/min per nasal cannula by Julián Varela RN [email or web address] 11:16 AM Recorded Pressure: Ao, XL=393, Condition=Condition 1 (Aorta) Ao 85/57/71 11:17 AM [facility]ter [email or web address] 11:17 AM Time: 11:17 Oxygen on at 8 L/min per nasal cannula by Neelam Syed RN [email or web address] 11:18 AM PCI Status Emergency [email or web address] 11:18 AM .014 Prowater 190cm guide wire across target lesion- successful. reused? No [email or web address] 11:18 AM Inflation device was opened. [email or web address] 11:18 AM 6Fr XB LAD 3.5 Cordis guide catheter was used to cannulate the PCI vessel successfully. reused? No [email or web address] 11:19 AM Pressure channel 1 zero failed. 11:19 AM Lesion found in Distal Circumflex. Pre Stenosis: 100 Pre CAIO Flow: [email or web address] 11:20 AM Time: 11:20 Heparin 1000 units Intravenous Given by Neelam Syed RN [email or web address] 11:20 AM Recorded Pressure: Ao, ON=115, Condition=Condition 1 (Aorta) Ao 145/87/115 11:21 AM Recorded Pressure: Ao, UB=926, Condition=Condition 1 (Aorta) Ao 151/91/121 11:21 AM OW=590 bpm, RSOO=213/103 mmhg, SpO2=98.0 %, Resp=18 B/min, Comment=ST 11:23 AM 2.0 mm x 12 mm Emerge Monorail balloon across target lesion- successful. reused? No [email or web address] 11:23 AM 9.00 oral airway placed by Julián varela RN. [email or web address] 11:24 AM Balloon inflated @ 8 yanni for 20 seconds [email or web address] 11:24 AM Balloon inflated @ 12 yanni for 20 seconds [email or web address] 11:25 AM Recorded Pressure: Ao, HR=99, Condition=Condition 1 (Aorta) Ao 154/109/132 11:26 AM AD=564 bpm, DENC=761/110 mmhg, DaR1=138.0 %, Resp=21 B/min, Comment=NSR 11:28 AM Time: 11:28 Versed 1 mg Intravenous Given by Julián Varela RN [email or web address] 11:28 AM Time: 11:28 Fentanyl 25 mcg Intravenous Given by Julián Varela RN [email or web address] 11:28 AM Balloon catheter removed intact. [email or web address] 11:28 AM Time: 11:28 Nitroglycerin 200 mcg Intracoronary Given by Susan Zapata MD, [facility] [email or web address] 11:31 AM WN=675 bpm, LSLX=529/104 mmhg, SpO2=96.0 %, Resp=18 B/min, Comment=NSR 11:31 AM Physician reviewing films. [email or web address] 11:33 AM Lesion found in 1st Marginal. Pre Stenosis: 95 Pre CAIO Flow: [email or web address] 11:34 AM 2.25mm x 20mm Synergy drug-eluting stent across target lesion- successful Lot #[id number] [email or web address] 11:36 AM JA=367 bpm, APGZ=434/96 mmhg, SpO2=99.0 %, Resp=18 B/min, Comment=NSR 11:36 AM Stent deployed @ 11 yanni for 30 seconds [email or web address] 11:37 AM Stent balloon reinflated @ 12 yanni for 10 [email or web address] 11:38 AM Stent delivery system removed intact. [email or web address] 11:38 AM Time: 11:38 Nitroglycerin 200 mcg Intracoronary Given by Susan Zapata MD, [facility] 11:39 AM Time: 11:39 Oxygen on at 6 L/min per nasal cannula by Julián [facility]la RN [email or web address] 11:41 AM NK=288 bpm, LDUC=840/89 mmhg, SpO2=96.0 %, Resp=18 B/min, Comment=NSR 11:42 AM Екатерина Sky RT (R) Position: Monitor Time in: 11:42 to relieve Vivienne Toussaint RT (R) [email or web address] 11:43 AM 2.75mm x 12mm Synergy drug-eluting stent across target lesion- successful Lot #[id number] [email or web address] 11:44 AM Recorded Pressure: Ao, DI=847, Condition=Condition 1 (Aorta) Ao 125/92/109 11:44 AM Stent deployed @ 12 yanni for 30 seconds [email or web address] 11:45 AM PCI lesion in Proximal Circumflex. [email or web address] 11:45 AM Stent balloon reinflated @ 18 yanni for 25 seconds [email or web address] 11:45 AM Stent delivery system removed intact. [email or web address] 11:46 AM SW=583 bpm, OHVD=896/88 mmhg, SpO2=97.0 %, Resp=21 B/min, Comment=NSR 11:46 AM Time: 11:46 Nitroglycerin 200 mcg Intracoronary Given by Susan Zapata MD, [facility] [email or web address] 11:47 AM Recorded Pressure: Ao, UE=678, Condition=Condition 1 (Aorta) Ao 128/87/107 11:47 AM Guide wire removed intact. [email or web address] 11:48 AM Guide catheter removed intact. [email or web address] 11:48 AM 5Fr Pigtail catheter inserted over the wire [facility] dspellman 11:48 AM Catheter selectively placed in left ventricle dspellman 11:48 AM Bolus angiogram of left Ventricle complete: 8 ml/sec for a total of 24 mls dspellman 11:49 AM Pressure channel 1 zeroed. 11:49 AM Recorded Pressure: LV, OJ=991, Condition=Condition 1 (Left Ventricle) LV 101/22/25 11:49 AM Recorded Pressure: LV, Ao, UC=827, Condition=Condition 1 (Left Ventricle) LV 122/46/54, (Aorta) Ao 125/95/111 11:50 AM Catheter removed [email or web address] 11:51 AM Bolus angiogram of right Femoral complete: 4 ml/sec for a total of 7 mls dspellman 11:51 AM TC=238 bpm, ZMRB=758/93 mmhg, SpO2=93.0 %, Resp=17 B/min, Comment=NSR 11:51 AM Procedure completed at 11:51 [email or web address] 11:52 AM Sign out completed: Radiation Dose 1106.85 mGy Fluoro Time: 8.6 Isovue 370 - 200ml contrast 253.8 ml given by Susan Zapata MD, [facility]. Complications: NoneCardiac Rehab Consult needed: YesConfirmed administered medications: Yes [email or web address] 12:00 PM Isovue 370 - 500ml,1 Bottle(s) used. [email or web address] 12:00 PM Sheath left in place to be pulled on floor/holding areaV+Pad dspellman 12:01 PM Post ECG NSR dspellman 12:01 PM Post Blood Pressure 154/93 dspellman 12:01 PM 12:01 Post Pulses Bilateral PT 1+ [email or web address] 12:01 PM 12:01 Post Pulses Rt DP 1+ [email or web address] 12:02 PM 12:01 Post Pulses Lt DP 2+ [email or web address] 12:02 PM Information taught Cardiac Cath and PCI [email or web address] 12:02 PM Education needs Procedure, Plan of Care, and Responsibilities of Patient in Care dspellman 12:08 PM Report given to Suzanne PHELPS Pt taken to ICU Room #3. 12:08 [email or web address] 12:10 PM Learning barriers :None [email or web address] 12:10 PM Education Methods Verbal [email or web address] 12:10 PM Education evaluation Able to repeat information [email or web address] 12:10 PM Site status No bleeding/hematoma - Rt Groin as reported by Denise Salguero RT (R) at 12:10 [email or web address] 12:10 PM Opsite applied dspellman 12:10 PM PT voided 200 cc clear yellow urine dspellman 12:11 PM Patient out of room: 12:11 dspellman 12:11 PM Family placed in consult room. [email or web address] 12:11 PM Complications: None dspellman 12:11 PM Fluoro Time: 8.6 dspellman 12:11 PM Isovue 370 - 200ml contrast 253.8 ml given by Susan Zapata MD, [facility]. [email or web address] 12:11 PM Radiation Dose 1106.85 mGy dspellman 12:12 PM Lesion found in Proximal RCA. Pre Stenosis: 30 Pre CAIO Flow: [email or web address] 12:12 PM Lesion found in Mid RCA. Pre Stenosis: 50 Pre CAIO Flow: dspellman 12:13 PM Lesion found in Distal RCA. Pre Stenosis: 30 Pre CAIO Flow: dspellman 12:13 PM Lesion found in LMCA. Pre Stenosis: 25 Pre CAIO Flow: dspellman 12:13 PM Lesion found in Proximal LAD. Pre Stenosis: 20 Pre CAIO Flow: dspellman 12:13 PM Lesion found in Distal LAD. Pre Stenosis: 90 Pre CAIO Flow: dspellman 12:14 PM Lesion found in 2nd Diagonal. Pre Stenosis: 50 Pre CAIO Flow: dspellman 12:14 PM Lesion found in 1st Marginal. Pre Stenosis: 99 Pre CAIO Flow: [email or web address] 12:14 PM Coronary Dominance: right [email or web address] Complications Complication None None Hemodynamics Pressures Site Systolic/A Wave Diastolic/V Wave Mean AO 135 95 115 AO 85 57 71 AO 145 87 115 AO 151 91 121 AO 154 109 132 AO 125 92 109 AO 128 87 107 LV 101 22 25 LV 122 46 54 AO 125 95 111 Post Procedure Information Blood Pressure: 154/93 mmHg Rhythm: NSR Closure Device Time Device Success/Fail 03/14/2016 12:14:00 PM Site Checks Time Location Status Staff Sheath In? Note 12:10 PM Rt Groin No bleeding/hematoma Denise Salguero RT (R) Yes Pulses Time Site Pre-Procedure Post-Procedure Note 12:01:00 PM Bilateral PT 1+ 12:01:00 PM Rt DP 1+ 12:01:00 PM Lt DP 2+ Updated by Vivienne Toussaint, RT(R) on 03/14/2016 12:30:07 PM Екатерина Sky RT electronically signed on 03/14/2016 12:30:45 PM with status of Final
[2016-03-14] MEDS: 0.9 % Sodium Chloride 1,000 ML IVC SCH ×2 (12:36→16:55)
[2016-03-14] MEDS ORDERED: *HR* Heparin 10,000 UNIT/10 ML VIAL ONE (13:11)
[2016-03-14] MEDS ORDERED: Nitroglycerin 1,000 MCG/10 ML VIAL IV ONE (13:11)
[2016-03-14] MEDS ORDERED: Heparin 1,000 UNITS/500 mL NS 500 ML ONE (13:11)
[2016-03-14] MEDS: Insulin LISPRO 300 UNITS/3 ML VIAL SQ SCH ×4 (13:35→19:35)
[2016-03-14 13:46] LABS: Hematocrit 37.7 % (35.3-44.9); Mean Corpuscular HGB Conc 34.5 g/dL (31.6-35.5); Mean Corpuscular Hemoglobin 29.7 pg (28.0-33.3); Mean Corpuscular Volume 86.3 fL (83.0-100.0); Mean Platelet Volume 9.2 fL (9.4-12.4); Platelet Count 137 K/mcL (140-400); Red Blood Count 4.37 M/mcL (3.82-4.97)
[2016-03-14 13:52] LABS: Prothrombin Time 11.3 Seconds (9.4-12.1)
[2016-03-14 13:56] LABS: Activated Partial Thrombo Time 45.2 Seconds (26.0-36.0)
[2016-03-14] MEDS ORDERED: *HR* Atropine Sulfate 1 MG/10 ML SYRINGE ONE (14:14)
--- NOTE | 2016-03-14 15:46 | ECHO - Doppler Report ---
Echocardiogram Name: Deann Jones Date of Study: 03/14/2016 Date: 1945 Ht: 65.0 in Medical Record#: [id number] Age: 70 Wt: 196.0 lb Gender: Female BSA: 1.96 Order #: [id number] Location: [facility] Room #: ICU03 Reading Physician: Dago Sarmiento MD, [facility] Knotting Machine Operator: Anson Haq RN Ordering Physician: Diego Erazo MD Primary Physician: Susan Kruger MD Indications: Chest pain Impressions: Normal left ventricular size and systolic function, LVEF 65%. Indeterminate diastolic function. Normal right ventricular size and function. Mildly dilated left atrium. No significant valvular dysfunction. Mild pulmonary hypertension. Estimated RVSP = 37 mmHg. Left Ventricular Wall Motion: Rest Echo Findings All wall segments showed normal motion. Findings: Study Quality * Technically adequate exam. ECG Findings * Sinus tachycardia. Left Ventricle * Normal left ventricular size and systolic function, LVEF 65%. * Normal LV wall thickness. * Indeterminate diastolic function. Right Ventricle * Normal right ventricular size and function. Left Atrium * Mildly dilated left atrium. Right Atrium * Normal right atrial size. Aorta * Normally sized aortic root. Pericardium * There is no pericardial effusion present. IVC * The IVC is not well evaluated. Aortic Valve * Trileaflet aortic valve. * Mildly calcified aortic valve leaflets. * No aortic stenosis. * No aortic regurgitation. Mitral Valve * Mild mitral annular calcification * No mitral stenosis. * Trace mitral regurgitation. Tricuspid Valve * Tricuspid valve not well visualized. * No tricuspid stenosis. * Trace tricuspid regurgitation. * Mild pulmonary hypertension. Estimated RVSP = 37 mmHg. Pulmonic Valve * Pulmonic valve not well visualized. * No pulmonic stenosis. * Trace pulmonic regurgitation. History Hypertension Diabetes Hypercholesteremia Family History of CAD History of CAD/PTCA Myocardial Infarction 02/22/2011 a Previous Echo was performed. Measurements: BP: 149/ 92 2D Normal Values RVIDd: 2.90 cm IVSd: 1.00 cm 0.6 - 1.0 cm LVIDd: 4.80 cm 3.7 - 5.6 cm LVPWd: 1.00 cm 0.6 - 1.1 cm LVIDs: 2.80 cm 1.5 - 3.6 cm AO: 3.00 cm < 4.0 cm LA volume: 59 Tricuspid Valve TV Regurg Peak Grad: 32.00mmHg TV Regurg Peak Sheng: 2.84m/sec Updated by Dago Sarmiento MD, [facility] on 03/14/2016 3:40:04 PM electronically signed on 03/14/2016 3:41:22 PM with status of Final Wall Motion Farah: 1=Normal, 2=Hypokinesis, 3=Akinesis, 4=Dyskinesis, 5=Aneurysmal, 6=Hyperkinetic, X=Not Visualized (Blank)=Missing
--- NOTE | 2016-03-14 15:49 | Invasive Diagnostic Lab ---
Name: Deann Jones Date of Study: 03/14/2016 Date: 1945 Ht: 165.0 cm /65.0 in Medical Record#: [id number] Age: 70 Wt: 89. kg / 196.21 lb Account/Order#: [id number] Gender: Female BSA: 1.96 Order #: [id number] Fluoro Dose: 1107 mGy BMI: 32.69 Procedure Physician: Susan Zaptaa MD, [facility] Referring MD: Referring MD: Procedures Performed: LEFT HEART CATH PCI of Acute OR Indications: STEMI Impressions: There is severe three vessel coronary artery disease. There is mild to moderate LV Dysfunction EF 45% Previously stented proximal LAD patent. Patient had successful PTCA/Drug-Eluting Stent placement in the proximal Circ. Patient had successful PTCA/Drug-Eluting Stent placement in the mid Circ. Recommendations: DAPT for one year minimum uninterrupted. Staged PCI of mid/distal LAD. Optimal medical therapy of patient's disease. Aggressive risk factor modification. History/Risk Factors: DM OR CAD HTN Hyperlipidemia [place] Hepatic steatosis TIA Appy Diabetes Procedure Access obtained in the right Femoral artery by percutaneous puncture Patient had successful PTCA/Drug-Eluting Stent placement in the proximal Circ. Patient had successful PTCA/Drug-Eluting Stent placement in the mid Circ. Complications: None, None Contrast: Isovue 254ml Hemodynamics: Pressures Site Systolic/ A Wave Diastolic/ V Wave End Diastolic/ Mean HR AO 135 95 115 92 AO 85 57 71 101 AO 145 87 115 102 AO 151 91 121 102 AO 154 109 132 99 AO 125 92 109 100 AO 128 87 107 103 LV 101 22 25 104 LV 122 46 54 103 AO 125 95 111 103 LV Ventriculography Ejection Method: LV Gram Ejection Fraction: 45% Wall Motion: ESQUIVEL Anterobasal Normal Anterolateral Mild Hypokinesis Apical: Mild Hypokinesis Inferoapical Mild Hypokinesis Inferobasal Normal Coronary Dominance: right Lesion Findings/Interventions * Left Main Coronary Artery There is a 25% stenosis in the LMCA. * Left Anterior Descending There is a 20% stenosis in the Proximal LAD. There is a 90% stenosis in the Distal LAD. There is a 50% stenosis in the 2nd Diagonal. * Circumflex There is a 12 mm long, 95% stenosis in the Proximal Circumflex. An intervention was performed on the Proximal Circumflex with a final stenosis of 0%. There were no lesion complications. There is a 20 mm long, 100% stenosis in the Mid Circumflex. Thrombus present. An intervention was performed on the Mid Circumflex with a final stenosis of 0%. There were no lesion complications. There is a 99% stenosis in the 1st Marginal. This lesion is further described as diffusely diseased. * Right Coronary Artery There is a 30% stenosis in the Proximal RCA. There is a 50% stenosis in the Mid RCA. There is a 30% stenosis in the Distal RCA. Interventional Device(s) Vessel Segment Type Name Diameter (mm) Length (mm) Mid Circumflex Balloon Emerge Monorail 2 12 Mid Circumflex Drug Eluting Stent Synergy 2.25 20 Proximal Circumflex drug-eluting stent Synergy 2.75 12 Updated by RT Melina (R) on 03/14/2016 3:32:47 PM Susan Zapata MD, FACC electronically signed on 03/14/2016 3:43:36 PM with status of Final
--- NOTE | 2016-03-14 16:06 | Electrocardiograph Report ---
[facility] Test Date: 2016-03-14 Pat Name: Deann Jones Department: 105 Room: 03 Gender: F Emergency Registrar: : 1945 Requested By: Fabián Caldera Order Number: [id number] Reading MD: Susan Zapata Measurements Intervals [place] Rate: 93 P: 50 ID: [id number] QRS: -16 QRSD: 97 T: 90 QT: 382 QTc: 432 Interpretive Statements SINUS RHYTHM WITH FIRST DEGREE AV BLOCK POSSIBLE ANTERIOR MYOCARDIAL INFARCTION [30 ms Q WAVE IN V3/V4, OR R < 0.2 mV IN V4], OF INDETERMINATE AGE INFERIOR/POSTERIOR MYOCARDIAL INFARCTION, POSSIBLY ACUTE ACUTE PA Electronically Signed On 03-14-16 16:05:04 EST by Susan Zapata
--- NOTE | 2016-03-14 16:34 | Electrocardiograph Report ---
[facility] Test Date: 2016-03-14 Pat Name: Deann Jones Department: 102 Room: 03 Gender: F [place] Gl[place]: [facility] : 1945 Requested By: Sherwin Little Order Number: [id number] Reading MD: Dago Sarmiento MD Measurements Intervals [place] Rate: 68 P: 34 GA: 199 QRS: -31 QRSD: 98 T: 87 QT: 409 QTc: 427 Interpretive Statements SINUS RHYTHM LEFT AXIS DEVIATION INFERIOR ST ELEVATION, CONSIDER ACUTE INJURY ST DEPRESSION IN V1-V2, POSSIBLE ACUTE POSTERIOR INJURY POOR R-WAVE PROGRESSION ACUTE ST ELEVATION MYOCARDIAL INFARCTION Electronically Signed On 03-14-16 16:33:32 EST by Dago Sarmiento MD
[2016-03-14] MEDS: *HR* Morphine 2 MG/ML SYRINGE IVP PRN (20:14)
[2016-03-15] MEDS: *HR* Morphine 2 MG/ML SYRINGE IVP PRN ×2 (00:17→06:15)
[2016-03-15 01:33] LABS: Basophils % 0.3 %; Eosinophils # 0.1 K/mcL (0.0-0.6); Eosinophils % 1.5 %; Hematocrit 37.8 % (35.3-44.9); Hemoglobin 12.6 g/dL (11.5-15.4); Immature Granulocytes % 0.4 % (0-4); Lymphocytes % 14.2 %; Mean Corpuscular HGB Conc 33.3 g/dL (31.6-35.5); Mean Corpuscular Volume 87.1 fL (83.0-100.0); Mean Platelet Volume 8.9 fL (9.4-12.4); Monocytes # 0.6 K/mcL (0.0-1.3); Monocytes % 8.4 %; Neutrophils # 5.5 K/mcL (1.6-8.9); Platelet Count 143 K/mcL (140-400); Red Blood Count 4.34 M/mcL (3.82-4.97); Red Cell Distribution Width 13.1 % (11.5-14.5); Segmented Neutrophils % 75.2 %
[2016-03-15 01:50] LABS: BUN/Creatinine Ratio 24 (6-26); Blood Urea Nitrogen 20 mg/dL (7-20); Calcium 8.8 mg/dL (8.6-10.8); Carbon Dioxide 25 mEq/L (19-29); Chloride 98 mEq/L (98-109); Chol/HDL Ratio 8.3 (0-4.9); Cholesterol 265 mg/dL (< 200); Glucose 199 mg/dL (70-99); HDL Cholesterol 32 mg/dL (40-59); Osmolality,Calculated 288 (280-300); Potassium 3.6 mEq/L (3.5-4.5); Sodium 135 mEq/L (136-145); Triglycerides 635 mg/dL (< 150); eGFR For African Americans > 60 (> 60); eGFR For Non-African Americans > 60 (> 60)
[2016-03-15] MEDS: 0.9 % Sodium Chloride 1,000 ML IVC SCH (02:24)
[2016-03-15] MEDS: Heparin 25,000 UNIT/500 ML D5W 25,000 UNIT/500 ML MLS IVC SCH (07:33)
[2016-03-15] MEDS: Insulin LISPRO 300 UNITS/3 ML VIAL SQ SCH ×5 (07:37→21:25)
[2016-03-15] MEDS ORDERED: Aspirin 81 MG TAB.CHEW PO SCH (09:00)
[2016-03-15] MEDS ORDERED: Aspirin 325 MG TABLET PO SCH (09:00)
--- NOTE | 2016-03-15 11:21 | Cardiology Progress Note ---
Date of Encounter: 03/15/16 Time of Encounter: 11:16 Assessment and Plan (1) ST elevation myocardial infarction (STEMI) Current Visit: Yes Status: Acute ST segment elevation myocardial infarction status post PCI to proximal and mid circumflex lesions. Continue aspirin, statin, beta leonela, and Plavix. Plan for staged PCI to 90% LAD lesion Thursday. Okay to transfer to 2 today. Echocardiogram pending. Qualifiers: Involved coronary artery: left circumflex coronary artery Qualified Code(s) : I21.21 - ST elevation (STEMI) myocardial infarction involving left circumflex coronary artery Discussion w patient/family: The assessment and plan as outlined above was discussed with the patient and/or family members who expressed understanding and agreement. All questions were answered. Thank you for involving us in the care of your patient. Please call with any questions. Subjective Principal diagnosis: STEMI Interval history: Patient seen and examined. Overall, reports she feels much improved. No chest pain or discomfort reported this morning. No new events to report. Objective Vital Signs, Last 4 Hours Temp Pulse Resp BP Pulse Ox 03/15/16 10:00 71 12 128/80 95 03/15/16 09:00 75 12 122/77 93 L 03/15/16 08:00 74 16 119/74 97 03/15/16 07:40 98.7 F General: Conversant, No Apparent Distress HEENT: Atraumatic, Normocephaly, Mucus Membranes Moist Neck: No JVD, Normal carotid pulses Cardiac: Reg Rate and Rhythm, Normal S1 and S2, No Murmur Lungs: Normal Breath Sounds, No Wheeze, Rales, Rhonchi Neuro: Alert and responsive, No focal deficits noted Abdomen: Soft, Non-Tender, Other (Small area of ecchymosis around catheterization site. Otherwise normal-appearing, no hematoma, no drainage.) Skin: No rashes noted on visualized skin Musculoskeletal: No Chest Wall Tenderness Extremities: No Clubbing, No Cyanosis, No Edema, Normal Pulses Results 03/15/16 01:25 03/15/16 01:25 Lab Results 03/14/16 03/14/16 03/14/16 13:35 13:35 13:35 WBC 7.0 Hgb 13.0 Hct 37.7 Plt Count 137 L INR 1.0 APTT 45.2 H D Sodium Potassium Chloride Carbon Dioxide BUN Creatinine Glucose Calcium Troponin I 23.53 H* 03/14/16 03/15/16 03/15/16 19:57 01:25 01:25 WBC Hgb Hct Plt Count INR APTT Sodium 135 L Potassium 3.6 Chloride 98 Carbon Dioxide 25 BUN 20 Creatinine 0.83 Glucose 199 H Calcium 8.8 Troponin I 41.64 H* > 50.00 H* 03/15/16 01:25 WBC 7.3 Hgb 12.6 Hct 37.8 Plt Count 143 INR APTT Sodium Potassium Chloride Carbon Dioxide BUN Creatinine Glucose Calcium Troponin I - Imaging and Cardiology Cardiac cath: report reviewed - EKG Interpretation EKG results cardiology: personally reviewed Consult Discharge Plan - Plan Referrals: Susan Kruger MD [Primary Care Provider] -
[2016-03-15] MEDS ORDERED: *HR* Dextrose 50 % in Water (Syg) 50 ML SYRINGE IVP PRN (11:30)
[2016-03-15] MEDS ORDERED: D5% in Water 1,000 ML IV PRN (11:30)
[2016-03-15] MEDS ORDERED: Naloxone 0.4 MG/ML INJ IVP PRN (11:30)
[2016-03-15] MEDS ORDERED: Ondansetron 4 MG/2 ML VIAL IVP PRN (11:30)
[2016-03-15] MEDS ORDERED: Dextrose Gel 15 GM PO PRN ×2 (11:30)
--- NOTE | 2016-03-15 11:50 | Internal Med Progress Note ---
Date of Encounter: 03/15/16 Time of Encounter: 11:48 - Assessment and plan (1) ST elevation myocardial infarction (STEMI) Current Visit: Yes Status: Acute Assessment and plan: Currently in ICU. May transfer to 2 . Patient had stent placement to left circumflex artery lesions. Plan for staged PCI on Thursday. Continue cardiac monitoring. Follow cardiology recommendations. Qualifiers: Involved coronary artery: left circumflex coronary artery Qualified Code(s) : I21.21 - ST elevation (STEMI) myocardial infarction involving left circumflex coronary artery (2) Diabetes Current Visit: Yes Status: Chronic Assessment and plan: Blood sugars remain elevated. We will add long-acting insulin to insulin regimen. Diabetic diet. Qualifiers: Diabetes mellitus type: type 2 Diabetes mellitus complication status: without complication Diabetes mellitus ferry terminal agent insulin use: with assisted use Qualified Code(s): E11.9 - Type 2 diabetes mellitus without complications ; Z79.4 - terminologist (current) use of insulin (3) Hyperlipidemia Current Visit: Yes Status: Chronic Assessment and plan: Uncontrolled. Patient has total cholesterol of 265. On Lipitor 80 mg daily Qualifiers: Hyperlipidemia type: mixed hyperlipidemia Qualified Code(s): E78.2 - Mixed hyperlipidemia (4) Hypertension Current Visit: Yes Status: Chronic Assessment and plan: Blood pressure is better controlled. Continue current medications without any changes at this time. Qualifiers: Hypertension type: essential hypertension Qualified Code(s): I10 - Essential (primary) hypertension - Subjective Interval history: Patient is feeling better today. No chest pain. No shortness of breath. No palpitations. - Constitutional Vitals: Temp Pulse Resp BP Pulse Ox 98.4 F 66 14 132/78 94 L 03/15/16 11:20 03/15/16 11:00 03/15/16 11:00 03/15/16 11:00 03/15/16 11:00 General appearance: Present: cooperative, A&O X 3, pleasant, obese, answers questions appropriately - Eye Eye exam: Present: PERRL, conjuntiva pink, sclera anicteric Pupils: Present: PERRL - ENT Additional comments: Difficulty hearing - Respiratory Respiratory exam: Present: CTAB. Absent: accessory muscle use, rales, rhonchi, wheezes - Cardiovascular Cardiovascular exam: Present: RRR, +S1, +S2. Absent: diastolic murmur, gallop, rubs, systolic murmur - GI/Abdominal GI/Abdominal exam: Present: normal bowel sounds, soft, no peritoneal signs. Absent: distended, tenderness - Neurological Exam Neurological exam: Present: alert, oriented X3, no focal deficits. Absent: facial droop, speech deficit - Skin Skin exam: Present: dry, intact Internal Medicine: Result - Labs CBC & Chem 7: 03/15/16 01:25 03/15/16 01:25 Labs: Short CBC 03/14/16 03/15/16 Range/Units 13:35 01:25 WBC 7.0 7.3 (4.3-11.1) K/mcL Hgb 13.0 12.6 (11.5-15.4) g/dL Hct 37.7 37.8 (35.3-44.9) % Plt Count 137 L 143 (140-400) K/mcL Neutrophils # 5.5 (1.6-8.9) K/mcL BMP 03/15/16 01:25 Sodium 135 L Potassium 3.6 Chloride 98 Carbon Dioxide 25 BUN 20 Creatinine 0.83 Glucose 199 H Calcium 8.8 Cardiac Enzymes 03/14/16 03/14/16 03/15/16 Range/Units 13:35 19:57 01:25 Troponin I 23.53 H* 41.64 H* > 50.00 H* (0-0.03) ng/mL - ABG Interpretation ABG results: PT/INR, D-dimer PT 11.3 Seconds (9.4-12.1) 03/14/16 13:35 Consult Discharge Plan - Plan Referrals: Susan Kruger MD [Primary Care Provider] - - Attending Attestation This document has been at least partially created by [employer] recognition technology by Dr. Franklin. Errors in grammar, wording or other phrases may exist. If errors are found after the documentation is signed, they will be addressed individually in the addendum section of this document when appropriate. Medical Decision Making - MDM Narrative Medical decision making narrative: High risk for complications due to 90% LAD stenosis. - Lab Data Lab results reviewed: Yes I reviewed the patient's lab results. Result diagrams: 03/15/16 01:25 03/15/16 01:25 Lab Results 03/14/16 03/14/16 03/14/16 Range/Units 12:21 13:35 13:35 WBC 7.0 (4.3-11.1) K/mcL RBC 4.37 (3.82-4.97) M/mcL Hgb 13.0 (11.5-15.4) g/dL Hct 37.7 (35.3-44.9) % MCV 86.3 (83.0-100.0) fL MCH 29.7 (28.0-33.3) pg MCHC 34.5 (31.6-35.5) g/dL RDW 13.0 (11.5-14.5) % Plt Count 137 L (140-400) K/mcL MPV 9.2 L (9.4-12.4) fL Immature Gran % (0-4) % Seg Neutrophils % % Lymphocytes % % Monocytes % % Eosinophils % % Basophils % % Neutrophils # (1.6-8.9) K/mcL Lymphocytes # (0.6-4.6) K/mcL Monocytes # (0.0-1.3) K/mcL Eosinophils # (0.0-0.6) K/mcL Basophils # (0.0-0.2) K/mcL PT 11.3 (9.4-12.1) Seconds INR 1.0 APTT 45.2 H D (26.0-36.0) Seconds Sodium (136-145) mEq/L Potassium (3.5-4.5) mEq/L Chloride (98-109) mEq/L Carbon Dioxide (19-29) mEq/L BUN (7-20) mg/dL Creatinine (0.57-1.11) mg/dL Est GFR ( Amer) (> 60) Est GFR (Non-Af Amer) (> 60) BUN/Creatinine Ratio (6-26) Glucose (70-99) mg/dL POC Glucose 211 H (58-89) Calculated Osmolality (280-300) Calcium (8.6-10.8) mg/dL Troponin I (0-0.03) ng/mL Triglycerides (< 150) mg/dL Cholesterol (< 200) mg/dL LDL Cholesterol, Calc VLDL Cholesterol, Calc HDL Cholesterol (40-59) mg/dL Cholesterol/HDL Ratio (0-4.9) 03/14/16 03/14/16 03/14/16 Range/Units 13:35 15:25 19:20 WBC (4.3-11.1) K/mcL RBC (3.82-4.97) M/mcL Hgb (11.5-15.4) g/dL Hct (35.3-44.9) % MCV (83.0-100.0) fL MCH (28.0-33.3) pg MCHC (31.6-35.5) g/dL RDW (11.5-14.5) % Plt Count (140-400) K/mcL MPV (9.4-12.4) fL Immature Gran % (0-4) % Seg Neutrophils % % Lymphocytes % % Monocytes % % Eosinophils % % Basophils % % Neutrophils # (1.6-8.9) K/mcL Lymphocytes # (0.6-4.6) K/mcL Monocytes # (0.0-1.3) K/mcL Eosinophils # (0.0-0.6) K/mcL Basophils # (0.0-0.2) K/mcL PT (9.4-12.1) Seconds INR APTT (26.0-36.0) Seconds Sodium (136-145) mEq/L Potassium (3.5-4.5) mEq/L Chloride (98-109) mEq/L Carbon Dioxide (19-29) mEq/L BUN (7-20) mg/dL Creatinine (0.57-1.11) mg/dL Est GFR ( Amer) (> 60) Est GFR (Non-Af Amer) (> 60) BUN/Creatinine Ratio (6-26) Glucose (70-99) mg/dL POC Glucose 198 H 212 H (58-89) Calculated Osmolality (280-300) Calcium (8.6-10.8) mg/dL Troponin I 23.53 H* (0-0.03) ng/mL Triglycerides (< 150) mg/dL Cholesterol (< 200) mg/dL LDL Cholesterol, Calc VLDL Cholesterol, Calc HDL Cholesterol (40-59) mg/dL Cholesterol/HDL Ratio (0-4.9) 03/14/16 03/15/16 03/15/16 Range/Units 19:57 01:25 01:25 WBC (4.3-11.1) K/mcL RBC (3.82-4.97) M/mcL Hgb (11.5-15.4) g/dL Hct (35.3-44.9) % MCV (83.0-100.0) fL MCH (28.0-33.3) pg MCHC (31.6-35.5) g/dL RDW (11.5-14.5) % Plt Count (140-400) K/mcL MPV (9.4-12.4) fL Immature Gran % (0-4) % Seg Neutrophils % % Lymphocytes % % Monocytes % % Eosinophils % % Basophils % % Neutrophils # (1.6-8.9) K/mcL Lymphocytes # (0.6-4.6) K/mcL Monocytes # (0.0-1.3) K/mcL Eosinophils # (0.0-0.6) K/mcL Basophils # (0.0-0.2) K/mcL PT (9.4-12.1) Seconds INR APTT (26.0-36.0) Seconds Sodium 135 L (136-145) mEq/L Potassium 3.6 (3.5-4.5) mEq/L Chloride 98 (98-109) mEq/L Carbon Dioxide 25 (19-29) mEq/L BUN 20 (7-20) mg/dL Creatinine 0.83 (0.57-1.11) mg/dL Est GFR ( Amer) > 60 (> 60) Est GFR (Non-Af Amer) > 60 (> 60) BUN/Creatinine Ratio 24 (6-26) Glucose 199 H (70-99) mg/dL POC Glucose (58-89) Calculated Osmolality 288 (280-300) Calcium 8.8 (8.6-10.8) mg/dL Troponin I 41.64 H* > 50.00 H* (0-0.03) ng/mL Triglycerides 635 H (< 150) mg/dL Cholesterol 265 H (< 200) mg/dL LDL Cholesterol, Calc TNP VLDL Cholesterol, Calc TNP HDL Cholesterol 32 L (40-59) mg/dL Cholesterol/HDL Ratio 8.3 H (0-4.9) 03/15/16 Range/Units 01:25 WBC 7.3 (4.3-11.1) K/mcL RBC 4.34 (3.82-4.97) M/mcL Hgb 12.6 (11.5-15.4) g/dL Hct 37.8 (35.3-44.9) % MCV 87.1 (83.0-100.0) fL MCH 29.0 (28.0-33.3) pg MCHC 33.3 (31.6-35.5) g/dL RDW 13.1 (11.5-14.5) % Plt Count 143 (140-400) K/mcL MPV 8.9 L (9.4-12.4) fL Immature Gran % 0.4 (0-4) % Seg Neutrophils % 75.2 % Lymphocytes % 14.2 % Monocytes % 8.4 % Eosinophils % 1.5 % Basophils % 0.3 % Neutrophils # 5.5 (1.6-8.9) K/mcL Lymphocytes # 1.0 (0.6-4.6) K/mcL Monocytes # 0.6 (0.0-1.3) K/mcL Eosinophils # 0.1 (0.0-0.6) K/mcL Basophils # 0.0 (0.0-0.2) K/mcL PT (9.4-12.1) Seconds INR APTT (26.0-36.0) Seconds Sodium (136-145) mEq/L Potassium (3.5-4.5) mEq/L Chloride (98-109) mEq/L Carbon Dioxide (19-29) mEq/L BUN (7-20) mg/dL Creatinine (0.57-1.11) mg/dL Est GFR ( Amer) (> 60) Est GFR (Non-Af Amer) (> 60) BUN/Creatinine Ratio (6-26) Glucose (70-99) mg/dL POC Glucose (58-89) Calculated Osmolality (280-300) Calcium (8.6-10.8) mg/dL Troponin I (0-0.03) ng/mL Triglycerides (< 150) mg/dL Cholesterol (< 200) mg/dL LDL Cholesterol, Calc VLDL Cholesterol, Calc HDL Cholesterol (40-59) mg/dL Cholesterol/HDL Ratio (0-4.9)
[2016-03-15] MEDS: Acetaminophen 325 MG TABLET PO PRN ×2 (14:32→21:42)
[2016-03-15] MEDS: *HR* Heparin 5,000 UNIT/ML VIAL SQ SCH (17:09)
[2016-03-16 04:28] LABS: Basophils % 0.4 %; Eosinophils # 0.2 K/mcL (0.0-0.6); Eosinophils % 3.4 %; Hematocrit 37.1 % (35.3-44.9); Hemoglobin 12.4 g/dL (11.5-15.4); Immature Granulocytes % 0.6 % (0-4); Lymphocytes # 1.4 K/mcL (0.6-4.6); Lymphocytes % 27.4 %; Mean Corpuscular HGB Conc 33.4 g/dL (31.6-35.5); Mean Corpuscular Hemoglobin 29.7 pg (28.0-33.3); Mean Corpuscular Volume 88.8 fL (83.0-100.0); Mean Platelet Volume 9.3 fL (9.4-12.4); Monocytes # 0.4 K/mcL (0.0-1.3); Platelet Count 124 K/mcL (140-400); Red Blood Count 4.18 M/mcL (3.82-4.97); Red Cell Distribution Width 13.4 % (11.5-14.5); Segmented Neutrophils % 60.2 %
[2016-03-16 04:39] LABS: Alanine Aminotransferase 16 Units/L (0-55); Albumin/Globulin Ratio 1.1 (1.1-2.2); Alkaline Phosphatase 64 Units/L (38-126); Aspartate Amino Transferase 77 Units/L (5-34); BUN/Creatinine Ratio 20 (6-26); Bilirubin,Total 0.6 mg/dL (0.2-1.2); Blood Urea Nitrogen 17 mg/dL (7-20); Calcium 9.1 mg/dL (8.6-10.8); Carbon Dioxide 25 mEq/L (19-29); Chloride 102 mEq/L (98-109); Globulin 2.8 g/dL (2.4-3.5); Glucose 231 mg/dL (70-99); Osmolality,Calculated 293 (280-300); Sodium 137 mEq/L (136-145); Total Protein 5.8 g/dL (6.0-8.3); eGFR For African Americans > 60 (> 60); eGFR For Non-African Americans > 60 (> 60)
[2016-03-16] MEDS: *HR* Heparin 5,000 UNIT/ML VIAL SQ SCH ×2 (06:40→17:06)
[2016-03-16] MEDS: Aspirin 81 MG TAB.CHEW PO SCH (07:13)
[2016-03-16] MEDS: Insulin LISPRO 300 UNITS/3 ML VIAL SQ SCH ×4 (07:16→20:12)
--- NOTE | 2016-03-16 10:37 | Cardiology Progress Note ---
Date of Encounter: 03/16/16 Time of Encounter: 10:35 Assessment and Plan (1) ST elevation myocardial infarction (STEMI) Current Visit: Yes Status: Acute ST segment elevation myocardial infarction status post PCI to proximal and mid circumflex lesions. Continue aspirin, statin, beta leonela, and Plavix. Discussed timing of stage PCI to LAD with patient. Patient prefers to have it done while in the hospital. Risks, benefits, and alternatives to the procedure discussed in great detail. Patient wishes to proceed. Plan for staged PCI to LAD Thursday. Qualifiers: Involved coronary artery: left circumflex coronary artery Qualified Code(s) : I21.21 - ST elevation (STEMI) myocardial infarction involving left circumflex coronary artery Discussion w patient/family: The assessment and plan as outlined above was discussed with the patient and/or family members who expressed understanding and agreement. All questions were answered. Thank you for involving us in the care of your patient. Please call with any questions. Subjective Principal diagnosis: STEMI Interval history: Patient seen and examined. Continues to do very well. Denies chest pain or discomfort while resting in her bed. Activity limited due to being in the ICU. She is waiting for an available bed on 2 N. Objective Vital Signs, Last 4 Hours Temp Pulse Resp BP Pulse Ox 03/16/16 09:00 70 20 103/61 90 L 03/16/16 07:49 98.3 F 03/16/16 07:15 74 General: Conversant, No Apparent Distress HEENT: Atraumatic, Normocephaly, Mucus Membranes Moist Neck: No JVD, Normal carotid pulses Cardiac: Reg Rate and Rhythm, Normal S1 and S2, No Murmur Lungs: Normal Breath Sounds, No Wheeze, Rales, Rhonchi Neuro: Alert and responsive, No focal deficits noted Abdomen: Soft, Non-Tender Skin: No rashes noted on visualized skin Musculoskeletal: No Chest Wall Tenderness Extremities: No Clubbing, No Cyanosis, No Edema Results 03/16/16 03:58 03/16/16 03:58 Lab Results 03/16/16 03/16/16 03:58 03:58 WBC 5.0 Hgb 12.4 Hct 37.1 Plt Count 124 L Sodium 137 Potassium 4.0 Chloride 102 Carbon Dioxide 25 BUN 17 Creatinine 0.84 Glucose 231 H Calcium 9.1 Total Bilirubin 0.6 AST 77 H ALT 16 Alkaline Phosphatase 64 - Imaging and Cardiology Echo: report reviewed Cardiac cath: report reviewed Consult Discharge Plan - Plan Referrals: Susan Kruger MD [Primary Care Provider] -
[2016-03-16] MEDS ORDERED: Insulin DETEMIR 100 UNIT/ML X5UNITS SQ SCH (10:45)
--- NOTE | 2016-03-16 12:48 | Internal Med Progress Note ---
Date of Encounter: 03/16/16 Time of Encounter: 11:00 - Assessment and plan (1) ST elevation myocardial infarction (STEMI) Current Visit: Yes Status: Acute Assessment and plan: No chest pain currently. Management per cardiology recommendations. Plan for staged PCI to left anterior descending artery tomorrow. Continue aspirin and statin and Plavix. Qualifiers: Involved coronary artery: left circumflex coronary artery Qualified Code(s) : I21.21 - ST elevation (STEMI) myocardial infarction involving left circumflex coronary artery (2) Diabetes Current Visit: Yes Status: Chronic Assessment and plan: Remains uncontrolled. Added long-acting insulin. Will monitor blood sugars closely. Qualifiers: Diabetes mellitus type: type 2 Diabetes mellitus complication status: without complication Diabetes mellitus care home insulin use: with rat exterminator use Qualified Code(s): E11.9 - Type 2 diabetes mellitus without complications ; Z79.4 - terminal gauger (current) use of insulin (3) Hyperlipidemia Current Visit: Yes Status: Chronic Assessment and plan: On atorvastatin Qualifiers: Hyperlipidemia type: mixed hyperlipidemia Qualified Code(s): E78.2 - Mixed hyperlipidemia (4) Hypertension Current Visit: Yes Status: Chronic Assessment and plan: Well-controlled Qualifiers: Hypertension type: essential hypertension Qualified Code(s): I10 - Essential (primary) hypertension - Subjective Interval history: Patient is doing much better today. She does describe some difficulty breathing when she is lying down. Denies any difficulty breathing with minimal leg while walking or PND. No lower extremity swelling. No chest pain. - Constitutional Vitals: Temp Pulse Resp BP Pulse Ox 98.0 F 72 16 106/62 93 L 03/16/16 11:31 03/16/16 11:00 03/16/16 11:00 03/16/16 11:00 03/16/16 11:00 General appearance: Present: cooperative, A&O X 3, pleasant, obese, answers questions appropriately - Respiratory Respiratory exam: Present: CTAB. Absent: accessory muscle use, rales, rhonchi, wheezes - Cardiovascular Cardiovascular exam: Present: RRR, +S1, +S2. Absent: diastolic murmur, gallop, rubs, systolic murmur - GI/Abdominal GI/Abdominal exam: Present: normal bowel sounds, soft, no peritoneal signs. Absent: distended, tenderness - Extremities Exam Extremities exam: Present: warm, radial pulses palpable and symetrical. Absent : calf tenderness, cyanotic, pedal edema - Neurological Exam Neurological exam: Present: alert, oriented X3, no focal deficits. Absent: facial droop, speech deficit - Skin Skin exam: Present: dry, intact Internal Medicine: Result - Labs CBC & Chem 7: 03/16/16 03:58 03/16/16 03:58 Labs: Short CBC 03/16/16 Range/Units 03:58 WBC 5.0 (4.3-11.1) K/mcL Hgb 12.4 (11.5-15.4) g/dL Hct 37.1 (35.3-44.9) % Plt Count 124 L (140-400) K/mcL Neutrophils # 3.0 (1.6-8.9) K/mcL BMP 03/16/16 03:58 Sodium 137 Potassium 4.0 Chloride 102 Carbon Dioxide 25 BUN 17 Creatinine 0.84 Glucose 231 H Calcium 9.1 Liver Function 03/16/16 Range/Units 03:58 Total Bilirubin 0.6 (0.2-1.2) mg/dL AST 77 H (5-34) Units/L ALT 16 (0-55) Units/L Alkaline Phosphatase 64 (38-126) Units/L Albumin 3.0 L (3.5-5.0) g/dL - ABG Interpretation ABG results: PT/INR, D-dimer PT 11.3 Seconds (9.4-12.1) 03/14/16 13:35 Consult Discharge Plan - Plan Referrals: Susan Kruger MD [Primary Care Provider] - - Attending Attestation This document has been at least partially created by [employer] recognition technology by Dr. Franklin. Errors in grammar, wording or other phrases may exist. If errors are found after the documentation is signed, they will be addressed individually in the addendum section of this document when appropriate. Medical Decision Making - MDM Narrative Medical decision making narrative: Moderate risk for complications - Lab Data Result diagrams: 03/16/16 03:58 03/16/16 03:58 Lab Results 03/14/16 03/14/16 03/14/16 Range/Units 12:21 13:35 13:35 WBC 7.0 (4.3-11.1) K/mcL RBC 4.37 (3.82-4.97) M/mcL Hgb 13.0 (11.5-15.4) g/dL Hct 37.7 (35.3-44.9) % MCV 86.3 (83.0-100.0) fL MCH 29.7 (28.0-33.3) pg MCHC 34.5 (31.6-35.5) g/dL RDW 13.0 (11.5-14.5) % Plt Count 137 L (140-400) K/mcL MPV 9.2 L (9.4-12.4) fL Immature Gran % (0-4) % Seg Neutrophils % % Lymphocytes % % Monocytes % % Eosinophils % % Basophils % % Neutrophils # (1.6-8.9) K/mcL Lymphocytes # (0.6-4.6) K/mcL Monocytes # (0.0-1.3) K/mcL Eosinophils # (0.0-0.6) K/mcL Basophils # (0.0-0.2) K/mcL PT 11.3 (9.4-12.1) Seconds INR 1.0 APTT 45.2 H D (26.0-36.0) Seconds Sodium (136-145) mEq/L Potassium (3.5-4.5) mEq/L Chloride (98-109) mEq/L Carbon Dioxide (19-29) mEq/L BUN (7-20) mg/dL Creatinine (0.57-1.11) mg/dL Est GFR ( Amer) (> 60) Est GFR (Non-Af Amer) (> 60) BUN/Creatinine Ratio (6-26) Glucose (70-99) mg/dL POC Glucose 211 H (58-89) Calculated Osmolality (280-300) Calcium (8.6-10.8) mg/dL Total Bilirubin (0.2-1.2) mg/dL AST (5-34) Units/L ALT (0-55) Units/L Alkaline Phosphatase (38-126) Units/L Troponin I (0-0.03) ng/mL Serum Total Protein (6.0-8.3) g/dL Albumin (3.5-5.0) g/dL Globulin (2.4-3.5) g/dL Albumin/Globulin Ratio (1.1-2.2) Triglycerides (< 150) mg/dL Cholesterol (< 200) mg/dL LDL Cholesterol, Calc VLDL Cholesterol, Calc HDL Cholesterol (40-59) mg/dL Cholesterol/HDL Ratio (0-4.9) 03/14/16 03/14/16 03/14/16 Range/Units 13:35 15:25 19:20 WBC (4.3-11.1) K/mcL RBC (3.82-4.97) M/mcL Hgb (11.5-15.4) g/dL Hct (35.3-44.9) % MCV (83.0-100.0) fL MCH (28.0-33.3) pg MCHC (31.6-35.5) g/dL RDW (11.5-14.5) % Plt Count (140-400) K/mcL MPV (9.4-12.4) fL Immature Gran % (0-4) % Seg Neutrophils % % Lymphocytes % % Monocytes % % Eosinophils % % Basophils % % Neutrophils # (1.6-8.9) K/mcL Lymphocytes # (0.6-4.6) K/mcL Monocytes # (0.0-1.3) K/mcL Eosinophils # (0.0-0.6) K/mcL Basophils # (0.0-0.2) K/mcL PT (9.4-12.1) Seconds INR APTT (26.0-36.0) Seconds Sodium (136-145) mEq/L Potassium (3.5-4.5) mEq/L Chloride (98-109) mEq/L Carbon Dioxide (19-29) mEq/L BUN (7-20) mg/dL Creatinine (0.57-1.11) mg/dL Est GFR ( Amer) (> 60) Est GFR (Non-Af Amer) (> 60) BUN/Creatinine Ratio (6-26) Glucose (70-99) mg/dL POC Glucose 198 H 212 H (58-89) Calculated Osmolality (280-300) Calcium (8.6-10.8) mg/dL Total Bilirubin (0.2-1.2) mg/dL AST (5-34) Units/L ALT (0-55) Units/L Alkaline Phosphatase (38-126) Units/L Troponin I 23.53 H* (0-0.03) ng/mL Serum Total Protein (6.0-8.3) g/dL Albumin (3.5-5.0) g/dL Globulin (2.4-3.5) g/dL Albumin/Globulin Ratio (1.1-2.2) Triglycerides (< 150) mg/dL Cholesterol (< 200) mg/dL LDL Cholesterol, Calc VLDL Cholesterol, Calc HDL Cholesterol (40-59) mg/dL Cholesterol/HDL Ratio (0-4.9) 03/14/16 03/15/16 03/15/16 Range/Units 19:57 01:25 01:25 WBC (4.3-11.1) K/mcL RBC (3.82-4.97) M/mcL Hgb (11.5-15.4) g/dL Hct (35.3-44.9) % MCV (83.0-100.0) fL MCH (28.0-33.3) pg MCHC (31.6-35.5) g/dL RDW (11.5-14.5) % Plt Count (140-400) K/mcL MPV (9.4-12.4) fL Immature Gran % (0-4) % Seg Neutrophils % % Lymphocytes % % Monocytes % % Eosinophils % % Basophils % % Neutrophils # (1.6-8.9) K/mcL Lymphocytes # (0.6-4.6) K/mcL Monocytes # (0.0-1.3) K/mcL Eosinophils # (0.0-0.6) K/mcL Basophils # (0.0-0.2) K/mcL PT (9.4-12.1) Seconds INR APTT (26.0-36.0) Seconds Sodium 135 L (136-145) mEq/L Potassium 3.6 (3.5-4.5) mEq/L Chloride 98 (98-109) mEq/L Carbon Dioxide 25 (19-29) mEq/L BUN 20 (7-20) mg/dL Creatinine 0.83 (0.57-1.11) mg/dL Est GFR ( Amer) > 60 (> 60) Est GFR (Non-Af Amer) > 60 (> 60) BUN/Creatinine Ratio 24 (6-26) Glucose 199 H (70-99) mg/dL POC Glucose (58-89) Calculated Osmolality 288 (280-300) Calcium 8.8 (8.6-10.8) mg/dL Total Bilirubin (0.2-1.2) mg/dL AST (5-34) Units/L ALT (0-55) Units/L Alkaline Phosphatase (38-126) Units/L Troponin I 41.64 H* > 50.00 H* (0-0.03) ng/mL Serum Total Protein (6.0-8.3) g/dL Albumin (3.5-5.0) g/dL Globulin (2.4-3.5) g/dL Albumin/Globulin Ratio (1.1-2.2) Triglycerides 635 H (< 150) mg/dL Cholesterol 265 H (< 200) mg/dL LDL Cholesterol, Calc TNP VLDL Cholesterol, Calc TNP HDL Cholesterol 32 L (40-59) mg/dL Cholesterol/HDL Ratio 8.3 H (0-4.9) 03/15/16 03/15/16 03/15/16 Range/Units 01:25 07:24 11:21 WBC 7.3 (4.3-11.1) K/mcL RBC 4.34 (3.82-4.97) M/mcL Hgb 12.6 (11.5-15.4) g/dL Hct 37.8 (35.3-44.9) % MCV 87.1 (83.0-100.0) fL MCH 29.0 (28.0-33.3) pg MCHC 33.3 (31.6-35.5) g/dL RDW 13.1 (11.5-14.5) % Plt Count 143 (140-400) K/mcL MPV 8.9 L (9.4-12.4) fL Immature Gran % 0.4 (0-4) % Seg Neutrophils % 75.2 % Lymphocytes % 14.2 % Monocytes % 8.4 % Eosinophils % 1.5 % Basophils % 0.3 % Neutrophils # 5.5 (1.6-8.9) K/mcL Lymphocytes # 1.0 (0.6-4.6) K/mcL Monocytes # 0.6 (0.0-1.3) K/mcL Eosinophils # 0.1 (0.0-0.6) K/mcL Basophils # 0.0 (0.0-0.2) K/mcL PT (9.4-12.1) Seconds INR APTT (26.0-36.0) Seconds Sodium (136-145) mEq/L Potassium (3.5-4.5) mEq/L Chloride (98-109) mEq/L Carbon Dioxide (19-29) mEq/L BUN (7-20) mg/dL Creatinine (0.57-1.11) mg/dL Est GFR ( Amer) (> 60) Est GFR (Non-Af Amer) (> 60) BUN/Creatinine Ratio (6-26) Glucose (70-99) mg/dL POC Glucose 228 H 232 H (58-89) Calculated Osmolality (280-300) Calcium (8.6-10.8) mg/dL Total Bilirubin (0.2-1.2) mg/dL AST (5-34) Units/L ALT (0-55) Units/L Alkaline Phosphatase (38-126) Units/L Troponin I (0-0.03) ng/mL Serum Total Protein (6.0-8.3) g/dL Albumin (3.5-5.0) g/dL Globulin (2.4-3.5) g/dL Albumin/Globulin Ratio (1.1-2.2) Triglycerides (< 150) mg/dL Cholesterol (< 200) mg/dL LDL Cholesterol, Calc VLDL Cholesterol, Calc HDL Cholesterol (40-59) mg/dL Cholesterol/HDL Ratio (0-4.9) 03/15/16 03/15/16 03/16/16 Range/Units 15:22 19:26 03:58 WBC 5.0 (4.3-11.1) K/mcL RBC 4.18 (3.82-4.97) M/mcL Hgb 12.4 (11.5-15.4) g/dL Hct 37.1 (35.3-44.9) % MCV 88.8 (83.0-100.0) fL MCH 29.7 (28.0-33.3) pg MCHC 33.4 (31.6-35.5) g/dL RDW 13.4 (11.5-14.5) % Plt Count 124 L (140-400) K/mcL MPV 9.3 L (9.4-12.4) fL Immature Gran % 0.6 (0-4) % Seg Neutrophils % 60.2 % Lymphocytes % 27.4 % Monocytes % 8.0 % Eosinophils % 3.4 % Basophils % 0.4 % Neutrophils # 3.0 (1.6-8.9) K/mcL Lymphocytes # 1.4 (0.6-4.6) K/mcL Monocytes # 0.4 (0.0-1.3) K/mcL Eosinophils # 0.2 (0.0-0.6) K/mcL Basophils # 0.0 (0.0-0.2) K/mcL PT (9.4-12.1) Seconds INR APTT (26.0-36.0) Seconds Sodium (136-145) mEq/L Potassium (3.5-4.5) mEq/L Chloride (98-109) mEq/L Carbon Dioxide (19-29) mEq/L BUN (7-20) mg/dL Creatinine (0.57-1.11) mg/dL Est GFR ( Amer) (> 60) Est GFR (Non-Af Amer) (> 60) BUN/Creatinine Ratio (6-26) Glucose (70-99) mg/dL POC Glucose 276 H 247 H (58-89) Calculated Osmolality (280-300) Calcium (8.6-10.8) mg/dL Total Bilirubin (0.2-1.2) mg/dL AST (5-34) Units/L ALT (0-55) Units/L Alkaline Phosphatase (38-126) Units/L Troponin I (0-0.03) ng/mL Serum Total Protein (6.0-8.3) g/dL Albumin (3.5-5.0) g/dL Globulin (2.4-3.5) g/dL Albumin/Globulin Ratio (1.1-2.2) Triglycerides (< 150) mg/dL Cholesterol (< 200) mg/dL LDL Cholesterol, Calc VLDL Cholesterol, Calc HDL Cholesterol (40-59) mg/dL Cholesterol/HDL Ratio (0-4.9) 03/16/16 Range/Units 03:58 WBC (4.3-11.1) K/mcL RBC (3.82-4.97) M/mcL Hgb (11.5-15.4) g/dL Hct (35.3-44.9) % MCV (83.0-100.0) fL MCH (28.0-33.3) pg MCHC (31.6-35.5) g/dL RDW (11.5-14.5) % Plt Count (140-400) K/mcL MPV (9.4-12.4) fL Immature Gran % (0-4) % Seg Neutrophils % % Lymphocytes % % Monocytes % % Eosinophils % % Basophils % % Neutrophils # (1.6-8.9) K/mcL Lymphocytes # (0.6-4.6) K/mcL Monocytes # (0.0-1.3) K/mcL Eosinophils # (0.0-0.6) K/mcL Basophils # (0.0-0.2) K/mcL PT (9.4-12.1) Seconds INR APTT (26.0-36.0) Seconds Sodium 137 (136-145) mEq/L Potassium 4.0 (3.5-4.5) mEq/L Chloride 102 (98-109) mEq/L Carbon Dioxide 25 (19-29) mEq/L BUN 17 (7-20) mg/dL Creatinine 0.84 (0.57-1.11) mg/dL Est GFR ( Amer) > 60 (> 60) Est GFR (Non-Af Amer) > 60 (> 60) BUN/Creatinine Ratio 20 (6-26) Glucose 231 H (70-99) mg/dL POC Glucose (58-89) Calculated Osmolality 293 (280-300) Calcium 9.1 (8.6-10.8) mg/dL Total Bilirubin 0.6 (0.2-1.2) mg/dL AST 77 H (5-34) Units/L ALT 16 (0-55) Units/L Alkaline Phosphatase 64 (38-126) Units/L Troponin I (0-0.03) ng/mL Serum Total Protein 5.8 L (6.0-8.3) g/dL Albumin 3.0 L (3.5-5.0) g/dL Globulin 2.8 (2.4-3.5) g/dL Albumin/Globulin Ratio 1.1 (1.1-2.2) Triglycerides (< 150) mg/dL Cholesterol (< 200) mg/dL LDL Cholesterol, Calc VLDL Cholesterol, Calc HDL Cholesterol (40-59) mg/dL Cholesterol/HDL Ratio (0-4.9)
[2016-03-16] MEDS: Acetaminophen 325 MG TABLET PO PRN (15:27)
--- NOTE | 2016-03-16 19:44 | Electrocardiograph Report ---
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
[2016-03-17 05:15] LABS: Basophils % 0.6 %; Eosinophils # 0.2 K/mcL (0.0-0.6); Eosinophils % 3.6 %; Hematocrit 33.9 % (35.3-44.9); Hemoglobin 11.1 g/dL (11.5-15.4); Immature Granulocytes % 0.4 % (0-4); Lymphocytes # 1.7 K/mcL (0.6-4.6); Lymphocytes % 34.6 %; Mean Corpuscular HGB Conc 32.7 g/dL (31.6-35.5); Mean Corpuscular Hemoglobin 29.3 pg (28.0-33.3); Mean Corpuscular Volume 89.4 fL (83.0-100.0); Mean Platelet Volume 9.4 fL (9.4-12.4); Monocytes # 0.4 K/mcL (0.0-1.3); Monocytes % 8.5 %; Neutrophils # 2.6 K/mcL (1.6-8.9); Platelet Count 124 K/mcL (140-400); Red Blood Count 3.79 M/mcL (3.82-4.97); Red Cell Distribution Width 13.4 % (11.5-14.5); Segmented Neutrophils % 52.3 %
[2016-03-17 05:27] LABS: BUN/Creatinine Ratio 26 (6-26); Blood Urea Nitrogen 21 mg/dL (7-20); Carbon Dioxide 27 mEq/L (19-29); Chloride 102 mEq/L (98-109); Glucose 192 mg/dL (70-99); Osmolality,Calculated 296 (280-300); Sodium 139 mEq/L (136-145); eGFR For African Americans > 60 (> 60); eGFR For Non-African Americans > 60 (> 60)
[2016-03-17] MEDS: *HR* Heparin 5,000 UNIT/ML VIAL SQ SCH ×2 (07:24→19:07)
[2016-03-17] MEDS: Insulin LISPRO 300 UNITS/3 ML VIAL SQ SCH ×2 (07:27→17:18)
[2016-03-17] MEDS: Aspirin 81 MG TAB.CHEW PO SCH (07:46)
[2016-03-17] MEDS ORDERED: Insulin LISPRO 300 UNITS/3 ML VIAL SQ SCH ×3 (07:51→21:00)
[2016-03-17] MEDS ORDERED: Heparin 1,000 UNITS/500 mL NS 500 ML ONE (07:56)
[2016-03-17] MEDS ORDERED: 0.9 % Sodium Chloride 1,000 ML ONE ×2 (07:56→10:10)
[2016-03-17] MEDS ORDERED: *HR* Heparin 10,000 UNIT/10 ML VIAL ONE (07:57)
--- NOTE | 2016-03-17 08:23 | Cardiology Progress Note ---
Date of Encounter: 03/17/16 Time of Encounter: 08:21 Assessment and Plan (1) ST elevation myocardial infarction (STEMI) Current Visit: Yes Status: Acute - STEMI s/p PCI to proximal and mid circumflex. - Continue optimized medical therapy: DAPT with Aspirin/Plavix, Lipitor, Lopressor, and Lisinopril - Staged PCI to LAD today 03/17/16. - May transfer to step-down unit once bed available. Qualifiers: Involved coronary artery: left circumflex coronary artery Qualified Code(s) : I21.21 - ST elevation (STEMI) myocardial infarction involving left circumflex coronary artery Discussion w patient/family: The assessment and plan as outlined above was discussed with the patient and/or family members who expressed understanding and agreement. All questions were answered. Thank you for involving us in the care of your patient. Please call with any questions. Subjective Principal diagnosis: STEMI Interval history: No acute events overnight. Denies any chest pain, shortness of breath, or other issues. Continues to do well. Patient scheduled for heart cath today. Objective Vital Signs, Last 4 Hours Pulse Resp BP Pulse Ox 03/17/16 07:00 64 16 114/65 97 General: Conversant, No Apparent Distress HEENT: Atraumatic, Normocephaly, Mucus Membranes Moist Neck: No JVD, Normal carotid pulses Cardiac: Reg Rate and Rhythm, Normal S1 and S2, No Murmur Lungs: Normal Breath Sounds, No Wheeze, Rales, Rhonchi Neuro: Alert and responsive, No focal deficits noted Abdomen: Soft, Non-Tender Skin: No rashes noted on visualized skin Musculoskeletal: No Chest Wall Tenderness Extremities: No Clubbing, No Cyanosis, No Edema, Normal Pulses Results 03/17/16 04:50 03/17/16 04:50 Lab Results 03/17/16 03/17/16 04:50 04:50 WBC 4.9 Hgb 11.1 L Hct 33.9 L Plt Count 124 L Sodium 139 Potassium 4.0 Chloride 102 Carbon Dioxide 27 BUN 21 H Creatinine 0.82 Glucose 192 H Calcium 9.0 Consult Discharge Plan - Plan Referrals: Susan Kruger MD [Primary Care Provider] -
[2016-03-17] MEDS ORDERED: Nitroglycerin 1,000 MCG/10 ML VIAL IV ONE (08:34)
[2016-03-17] MEDS ORDERED: *HR* Midazolam HCl 2 MG/2 ML VIAL ONE (08:59)
[2016-03-17] MEDS ORDERED: *HR* FentaNYL (PF) 100 MCG/2 ML VIAL ONE (08:59)
[2016-03-17] MEDS ORDERED: Insulin DETEMIR 100 UNIT/ML X5UNITS SQ SCH (09:00)
--- NOTE | 2016-03-17 09:34 | Pre-Sedation Evaluation ---
Pre-sedation evaluation - Pre-sedation checklist Date of procedure: 03/17/16 Procedure: LHC and possible PCI Recent Vitals: Last Vital Signs Temp 98.0 F 03/17/16 07:31 Pulse 64 03/17/16 07:00 Resp 16 03/17/16 07:00 BP 114/65 03/17/16 07:00 Pulse Ox 97 03/17/16 07:00 H&P (including ROS) documented in medical record: Yes Previous reaction to sedatives/anesthetics: No Dietary Status: NPO after Midnight Airway Assessment: Patient can open mouth completely, TMJ function normal Dentition: No loose teeth or bridges Possible difficult airway: No ASA Classification *see protocol: CLASS III-Severe systemic disease
[2016-03-17] MEDS ORDERED: *HR* Bivalirudin 250 MG VIAL IVC ONE (09:38)
[2016-03-17] MEDS ORDERED: *HR* OxyCODONE/APAP 5/325 TABLET PO PRN ×2 (09:59→11:51)
[2016-03-17] MEDS ORDERED: 0.9 % Sodium Chloride 1,000 ML IVC SCH (10:00)
--- NOTE | 2016-03-17 10:15 | Invasive Diagnostic Lab ---
Name: Deann Jones Date of Study: 03/17/2016 Date: 1945 Ht: 165.0 cm /65.0 in Medical Record#: [id number] Age: 70 Wt: 92. kg / 202.83 lb Account/Order#: [id number] Gender: Female BSA: 1.99 Order #: [id number] Fluoro Dose: 479 mGy BMI: 33.79 Procedure Physician: Titus Martinez MD Referring MD: Referring MD: Procedures Performed: Stent w/ PTCA Single Major Vessel Indications: Unstable Angina, Staged PCI Impressions: There is severe one vessel coronary artery disease. Patient had successful PTCA/Drug-Eluting Stent placement in the distal LAD. Stents placed from a prior procedure in the proximal and mid Circumflex are patent. Recommendations: Optimal medical therapy of patient's disease. Aggressive risk factor modification. History/Risk Factors: Diabetes Hypertension Dyslipidemia Current/Recent Smoker Prior MO Previous PCI Date: 03/14/2016 Procedure Access obtained in the left Femoral artery by percutaneous puncture Patient had successful PTCA/Drug-Eluting Stent placement in the distal LAD. Complications: None Contrast: Isovue 85ml Hemodynamics: Pressures Site Systolic/ A Wave Diastolic/ V Wave End Diastolic/ Mean HR AO 98 59 76 67 AO 116 61 86 67 Coronary Dominance: Lesion Findings/Interventions * Left Main Coronary Artery The LMCA is angiographically free of disease. * Left Anterior Descending There is a 16 mm long, 90% stenosis in the Distal LAD. The lesion has no thrombus present. An intervention was performed on the Distal LAD with a final stenosis of 0%. There were no lesion complications. The final CAIO flow was 3. * Circumflex There is a 90% stenosis in the 1st Marginal. Proximal stent and OM2 stent patent * Right Coronary Artery Not Visualized Interventional Device(s) Vessel Segment Type Name Diameter (mm) Length (mm) Distal LAD Balloon Emerge Monorail 2 12 Distal LAD Drug Eluting Stent Synergy 2.25 16 Updated by RT Benito(R) on 03/17/2016 9:58:29 AM Titus Martinez MD electronically signed on 03/17/2016 10:10:32 AM with status of Final
--- NOTE | 2016-03-17 11:26 | Internal Med Progress Note ---
Date of Encounter: 03/17/16 Time of Encounter: 09:00 - Assessment and plan (1) ST elevation myocardial infarction (STEMI) Current Visit: Yes Status: Acute Assessment and plan: Continue current management with aspirin, statin, beta leonela and ROSANNA inhibitor. Awaiting staged PCI to left anterior descending artery today. Cardiology following. Review of labs. Patient at moderate risk for complications Qualifiers: Involved coronary artery: left circumflex coronary artery Qualified Code(s) : I21.21 - ST elevation (STEMI) myocardial infarction involving left circumflex coronary artery (2) Diabetes Current Visit: Yes Status: Chronic Assessment and plan: Will increase Levemir to 20 units twice daily. Also increase sliding scale coverage to high dose. Qualifiers: Diabetes mellitus type: type 2 Diabetes mellitus complication status: without complication Diabetes mellitus termite control representative insulin use: with mcfp use Qualified Code(s): E11.9 - Type 2 diabetes mellitus without complications ; Z79.4 - intermodal customer service (current) use of insulin (3) Hyperlipidemia Current Visit: Yes Status: Chronic Assessment and plan: On atorvastatin Qualifiers: Hyperlipidemia type: mixed hyperlipidemia Qualified Code(s): E78.2 - Mixed hyperlipidemia (4) Hypertension Current Visit: Yes Status: Chronic Assessment and plan: Controlled Qualifiers: Hypertension type: essential hypertension Qualified Code(s): I10 - Essential (primary) hypertension - Subjective Interval history: Patient did have some chest pressure this morning when she sat up in a chair. She has been doing better since then. Denies any shortness of breath. No nausea or vomiting. Awaiting cardiac catheterization later today. - Constitutional Vitals: Temp Pulse Resp BP Pulse Ox 98.0 F 62 14 102/58 100 03/17/16 07:31 03/17/16 11:00 03/17/16 10:49 03/17/16 10:49 03/17/16 10:49 General appearance: Present: cooperative, A&O X 3, pleasant, obese, answers questions appropriately - Respiratory Respiratory exam: Present: CTAB. Absent: accessory muscle use, rales, rhonchi, wheezes - Cardiovascular Cardiovascular exam: Present: RRR, +S1, +S2. Absent: diastolic murmur, gallop, rubs, systolic murmur - Extremities Exam Extremities exam: Present: warm, radial pulses palpable and symetrical. Absent : calf tenderness, cyanotic, pedal edema - Neurological Exam Neurological exam: Present: alert, oriented X3, no focal deficits. Absent: facial droop, speech deficit Internal Medicine: Result - Labs CBC & Chem 7: 03/17/16 04:50 03/17/16 04:50 Labs: Short CBC 03/17/16 Range/Units 04:50 WBC 4.9 (4.3-11.1) K/mcL Hgb 11.1 L (11.5-15.4) g/dL Hct 33.9 L (35.3-44.9) % Plt Count 124 L (140-400) K/mcL Neutrophils # 2.6 (1.6-8.9) K/mcL BMP 03/17/16 04:50 Sodium 139 Potassium 4.0 Chloride 102 Carbon Dioxide 27 BUN 21 H Creatinine 0.82 Glucose 192 H Calcium 9.0 - ABG Interpretation ABG results: PT/INR, D-dimer PT 11.3 Seconds (9.4-12.1) 03/14/16 13:35 Consult Discharge Plan - Plan Referrals: Susan Kruger MD [Primary Care Provider] - - Attending Attestation This document has been at least partially created by [employer] recognition technology by Dr. Franklin. Errors in grammar, wording or other phrases may exist. If errors are found after the documentation is signed, they will be addressed individually in the addendum section of this document when appropriate.
[2016-03-17] MEDS ORDERED: *HR* Dextrose 50 % in Water (Syg) 50 ML SYRINGE IVP PRN (11:51)
[2016-03-17] MEDS ORDERED: Ondansetron 4 MG/2 ML VIAL IVP PRN (11:51)
[2016-03-17] MEDS ORDERED: D5% in Water 1,000 ML IV PRN (11:51)
[2016-03-17] MEDS ORDERED: Acetaminophen 325 MG TABLET PO PRN (11:51)
[2016-03-17] MEDS ORDERED: Dextrose Gel 15 GM PO PRN ×2 (11:51)
[2016-03-17] MEDS ORDERED: Naloxone 0.4 MG/ML INJ IVP PRN (11:51)
[2016-03-17] MEDS: 0.9 % Sodium Chloride 1,000 ML IVC SCH ×2 (12:14→19:02)
[2016-03-17] MEDS ORDERED: *HR* Atropine Sulfate 1 MG/10 ML SYRINGE ONE (12:19)
--- NOTE | 2016-03-17 14:08 | Invasive Diagnostic Lab Proc ---
Name: Deann Jones Date of Study: 03/17/2016 Date: 1945 Ht: 65.0in Medical Record#: [id number] Age: 70 Wt: 202.83lb Gender: Female BSA: 1.99 Order #: [id number] BMI: 33.79 Physicians Procedure Physician: Titus Martinez MD Referring MD: Referring MD: Staff Name Position Time In Vivienne Toussaint RT (R) Monitor 09:28 AM Shy Lassiter RN Crossbow Maker 09:28 AM Chela Robertson RT Scrub 09:28 AM Indications Indication Unstable Angina Staged PCI Procedures Performed Procedure PRQ CARD MICHELLE STENT W/ANGIO 1 VSL Pre-Procedure Checklist Informed consent is complete signed and on chart. H\\T\\P is on chart. ID band is on and ID verified with patient. Patient NPO for procedure The procedure was described for the patient and questions were answered. Blood Pressure: 114/65 ECG is on chart. Rhythm: NSR Plan of Care Patient will tolerate the procedure without complications. Adequate level of comfort will be maintained. Hemodynamics will remain stable Patient will recover from procedure without complications. Respiratory function will be maintained. Cardiac rhythm will remain stable. Patient temperature will be maintained. Patient and/or family have verbalized understanding of the procedure. Patient Education Chief Complaint/Reason for Test: PCI Developmental Category: Geriatric (65+ years) Developmentally Appropriate for Age: Yes Learning Barriers: None Education Needs: Procedure Education Method: Verbal Information Taught: Cardiac Cath Educational Evaluation: Able to repeat information Intravenous Access Time IV Size Location DC'd Fluid/Drip Rate Units RN 08:37 AM 18g 1 02/26" Patent On Arrival Rt Antecubital 0.9NaCl 25 ml/hr Neelam Syed RN Allergies nitrofurantoin Penicillins Vital Signs Time BP (mmHg) HR (bpm) O2 Sat. RR (bpm) LOC 08:37 AM 114 / 65 64 97 % 16 5 = Fully awake and oriented or at pre-proc level 09:28 AM 95 / 72 66 97 % 2 09:29 AM 123 / 68 132 98 % 18 09:34 AM 112 / 56 63 98 % 24 09:39 AM 108 / 55 61 96 % 11 09:44 AM 92 / 62 67 97 % 20 09:49 AM 125 / 60 71 98 % 31 09:54 AM 125 / 68 66 99 % 22 Procedural Medications Time Medication Dose Units Method Given By 09:30 AM Oxygen 2 L/min nasal cannula Shy Lassiter RN 09:30 AM Versed 1 mg Intravenous Shy Lassiter RN 09:30 AM Fentanyl 50 mcg Intravenous Shy Lassiter RN 09:39 AM Lidocaine 2% 17 ml Subcutaneous Titus Martinez MD 09:42 AM Angiomax 1.75mg/kg/hr: 13.5 ml Intravenous Shy Lassiter RN 09:43 AM Nitroglycerin 100 mcg Intracoronary Titus Martinez MD 09:44 AM Angiomax 1.75mg/kg/hr: 31.5 ml Intravenous Shy Lassiter RN ASA Classification: CLASS II- Mild systemic disease (i.e. well-controlled diabetes, hypertension, asthma, cigarette smoking) Dean Score Preprocedure Postprocedure Activity 2- Moves 4 extremities sustained head lift Activity Circulation 2- SBP +/= 20 points of pre-anesthetic level Circulation Consciousness 2- Awake and alert oriented x 3 Consciousness O2 Saturation 2- Able to maintain O2 satruation of 92% on room air O2 Saturation Respiratory 2- Able to deep breathe and cough well Respiratory Total Score 10 Total Score Contrast Agent: Isovue Diagnostic Contrast: 85 ml Total Contrast: 85 ml Fluoro Dose: 479 mGy Procedure Log Time Note Enter By 08:35 AM CathStat 09:24 AM Pt arrived to specialist employee labor relations 2 at 09:24 tsites 09:24 AM Physician arrived 09:24 tsites 09:24 AM ASA Class CLASS II- Mild systemic disease (i.e. well-controlled diabetes, hypertension, asthma, cigarette smoking) tsites 09:24 AM Meet and greet completed tsites 09:24 AM Sign in performed according to hospital policy. tsites 09:24 AM Procedure start 09:24 tsites 09:24 AM Patient charges- Angio tray pack, Navilyst 3mm J, Pulse Oximetry and ACIST tubing and transducer tsites 09:27 AM Vitals capture started with the following parameters, Patient=Adult, Interval=5 min, Initial [place]=497 mmHg, Deflation Rate=5 mmHg, Cuff placed on Right Arm 09:27 AM Case Delayed No tsites 09:28 AM HR=66 bpm, NIBP=95/72 mmhg, SpO2=97.0 %, Resp=2 B/min, Comment=NSR 09:28 AM Hair removed from procedure site in holding area using clippers. Bilateral groin prepped with Chloraprep by Neelam Syed RN then patient draped. Skin intact. tsites 09:28 AM Vivienne Toussaint RT (R) Position: Monitor Time in: :28 tsites 09:28 AM Vitals capture stopped. 09:28 AM Vitals capture started with the following parameters, Patient=Adult, Interval=5 min, Initial Gfpdrikq=574 mmHg, Deflation Rate=5 mmHg, Cuff placed on Right Arm 09:28 AM Shy Lassiter RN Position: Crossbow Maker Time in: : tsites 09:28 AM Chela Robertson RT Position: Scrub Time in: : tsites 09:29 AM OV=096 bpm, ZOCQ=509/68 mmhg, SpO2=98.0 %, Resp=18 B/min, Comment=NSR 09:30 AM Time: 09:30 Oxygen on at 2 L/min per nasal cannula by Shy Lassiter RN 09:30 AM Time: 09:30 Versed 1 mg Intravenous Given by Shy Lassiter RN 09:30 AM Time: 09:30 Fentanyl 50 mcg Intravenous Given by Shy Lassiter RN 09:31 AM Pressure channel 1 zeroed. 09:32 AM Recorded ECG: HR=64 Condition=Condition 1 09:32 AM Reference ECG taken 09:34 AM HR=63 bpm, CRQY=527/56 mmhg, SpO2=98.0 %, Resp=24 B/min, Comment=NSR 09:38 AM Time out performed according to hospital policy [email or web address] 09:39 AM HR=61 bpm, JHLX=581/55 mmhg, SpO2=96.0 %, Resp=11 B/min, Comment=NSR 09:39 AM Time: 09:39 17 ml Lidocaine 2% to left groin Subcutaneous Given by Titus Martinez MD [email or web address] 09:40 AM Access obtained by percutaneous puncture. 6Fr 10cm Terumo [place] sheath placed in left Femoral artery. [id number] [email or web address] 09:42 AM Time: 09:42 Angiomax 1.75mg/kg/hr: 13.5 ml Intravenous Given by Shy Lassiter RN Treviño pump [email or web address] 09:43 AM 0.035 145cm Navilyst 3mmJ wire [id number] [email or web address] 09:43 AM 6Fr XB LAD 3.5 Cordis guide catheter was used to cannulate the PCI vessel successfully. reused? No [email or web address] 09:43 AM Time: 09:43 Nitroglycerin 100 mcg Intracoronary Given by Titus Martinez MD [email or web address] 09:44 AM Time: 09:44 Angiomax 1.75mg/kg/hr: 31.5 ml Intravenous Given by Shy Lassiter RN Treviño pump [email or web address] 09:44 AM HR=67 bpm, NIBP=92/62 mmhg, SpO2=97.0 %, Resp=20 B/min, Comment=NSR 09:44 AM Recorded Pressure: Ao, HR=67, Condition=Condition 1 (Aorta) Ao 98/59/76 09:44 AM LCA angiography performed in multiple views. [email or web address] 09:44 AM .014 Prowater 190cm guide wire across target lesion- successful. reused? No [email or web address] 09:44 AM Inflation device was opened. [email or web address] 09:46 AM 2.0 mm x 12 mm Emerge Monorail balloon across target lesion- successful. reused? No [email or web address] 09:47 AM Balloon inflated @ 6 yanni for 5 seconds [email or web address] 09:47 AM Balloon inflated @ 6 yanni for 9 seconds [email or web address] 09:48 AM Balloon inflated @ 8 yanni for 8 seconds [email or web address] 09:48 AM Balloon inflated @ 8 yanni for 6 seconds [email or web address] 09:48 AM Balloon catheter removed intact. [email or web address] 09:49 AM 2.25mm x 16mm Synergy drug-eluting stent across target lesion- successful Lot #[id number] [email or web address] 09:49 AM HR=71 bpm, YLXM=116/60 mmhg, SpO2=98.0 %, Resp=31 B/min, Comment=NSR 09:50 AM Stent deployed @ 11 yanni for 14 seconds [email or web address] 09:50 AM Stent delivery system removed intact. [email or web address] 09:50 AM Recorded Pressure: Ao, HR=67, Condition=Condition 1 (Aorta) Ao 116/61/86 09:52 AM Guide wire removed intact. [email or web address] 09:52 AM Guide catheter removed intact. [email or web address] 09:53 AM Bolus angiogram of left Femoral complete: 4 ml/sec for a total of 7 mls [email or web address] 09:53 AM Procedure completed at 09:53 [email or web address] 09:54 AM Sign out completed: Radiation Dose 479.31 mGy Fluoro Time: 3.1 Isovue 370 - 200ml contrast 85 ml given by Titus Martinez MD. Complications: NoneCardiac Rehab Consult needed: YesConfirmed administered medications: Yes [email or web address] 09:54 AM Sheath left in place to be pulled on floor/holding areaV+Pad [email or web address] 09:54 AM HR=66 bpm, ILES=321/68 mmhg, SpO2=99.0 %, Resp=22 B/min, Comment=NSR 09:59 AM 09:59 Post Pulses Bilateral DP \\T\\ PT 1+ [email or web address] 09:59 AM Information taught PCI [email or web address] 09:59 AM Education needs Procedure, Plan of Care, and Disease Process [email or web address] 09:59 AM Learning barriers :None [email or web address] 09:59 AM Education Methods Verbal [email or web address] 09:59 AM Education evaluation Able to repeat information [email or web address] 10:00 AM Site status No bleeding/hematoma - Lt Groin as reported by Chela Robertson RT at 09:59 [email or web address] 10:00 AM Opsite applied [email or web address] 10:00 AM Delay to floor No [email or web address] 10:00 AM Family placed in not available. [email or web address] 10:00 AM Complications: None [email or web address] 10:04 AM Report given to Scooter PHELPS Pt taken to ICU Room #3. 10:04 [email or web address] 10:04 AM Patient out of room: 10:04 [email or web address] Complications Complication None None Hemodynamics Pressures Site Systolic/A Wave Diastolic/V Wave Mean AO 98 59 76 AO 116 61 86 Post Procedure Information Post procedural instructions were given Site Checks Time Location Status Staff Sheath In? Note 09:59 AM Lt Groin No bleeding/hematoma Chela Robertson RT Pulses Time Site Pre-Procedure Post-Procedure Note 03/17/2016 8:37:00 AM Bilateral DP \\T\\ PT 2+ Bilateral radial 2+ 9:59:00 AM Bilateral DP \\T\\ PT 1+ Updated by Vivienne Toussaint, RT(R) on 03/17/2016 2:02:33 PM electronically signed on 03/17/2016 2:03:04 PM with status of Final
[2016-03-17] MEDS: Insulin DETEMIR 100 UNIT/ML X5UNITS SQ SCH (21:24)
[2016-03-18 04:32] LABS: Basophils % 0.4 %; Eosinophils # 0.2 K/mcL (0.0-0.6); Eosinophils % 4.1 %; Hematocrit 32.2 % (35.3-44.9); Hemoglobin 10.3 g/dL (11.5-15.4); Immature Granulocytes % 0.4 % (0-4); Lymphocytes # 1.6 K/mcL (0.6-4.6); Mean Corpuscular Hemoglobin 29.3 pg (28.0-33.3); Mean Corpuscular Volume 91.5 fL (83.0-100.0); Mean Platelet Volume 9.3 fL (9.4-12.4); Monocytes # 0.4 K/mcL (0.0-1.3); Monocytes % 7.9 %; Neutrophils # 2.7 K/mcL (1.6-8.9); Platelet Count 130 K/mcL (140-400); Red Blood Count 3.52 M/mcL (3.82-4.97); Red Cell Distribution Width 13.3 % (11.5-14.5); Segmented Neutrophils % 55.2 %
[2016-03-18] MEDS: 0.9 % Sodium Chloride 1,000 ML IVC SCH (04:46)
[2016-03-18 04:47] LABS: BUN/Creatinine Ratio 20 (6-26); Blood Urea Nitrogen 16 mg/dL (7-20); Calcium 8.6 mg/dL (8.6-10.8); Carbon Dioxide 26 mEq/L (19-29); Chloride 103 mEq/L (98-109); Glucose 182 mg/dL (70-99); Osmolality,Calculated 290 (280-300); Potassium 4.1 mEq/L (3.5-4.5); Sodium 137 mEq/L (136-145); eGFR For African Americans > 60 (> 60); eGFR For Non-African Americans > 60 (> 60)
[2016-03-18] MEDS: *HR* Heparin 5,000 UNIT/ML VIAL SQ SCH (06:13)
[2016-03-18] MEDS: Insulin DETEMIR 100 UNIT/ML X5UNITS SQ SCH (08:43)
[2016-03-18] MEDS: Insulin LISPRO 300 UNITS/3 ML VIAL SQ SCH ×2 (08:44→12:10)
[2016-03-18] MEDS ORDERED: Aspirin 81 MG TAB.CHEW PO SCH (09:00)
[2016-03-18] MEDS ORDERED: GI Cocktail 40 ML EACH PO ONE (09:28)
--- NOTE | 2016-03-18 09:31 | Cardiology Progress Note ---
Date of Encounter: 03/18/16 Time of Encounter: 08:00 Assessment and Plan (1) ST elevation myocardial infarction (STEMI) Current Visit: Yes Status: Acute STEMI s/p proximal and mid LCx stent. Successful staged PCI of severe LAD stenosis yesterday. Vitals, telemetry, and labs stable overnight. Has been up and ambulating in room without symptoms. Post PCI discharge instructions including importance of uninterrupted DAPT (asa + plavix) for atleast 1 year. Patient verbalized understanding. No issues with right/left groin cath site. Continue statin and betablocker. Follow-up in 1 week with [facility]. Qualifiers: Involved coronary artery: left circumflex coronary artery Qualified Code(s) : I21.21 - ST elevation (STEMI) myocardial infarction involving left circumflex coronary artery Discussion w patient/family: The assessment and plan as outlined above was discussed with the patient and/or family members who expressed understanding and agreement. All questions were answered. Thank you for involving us in the care of your patient. Please call with any questions. The patient will be discussed and reviewed with Dr. Sarmiento. Subjective Principal diagnosis: STEMI Interval history: Seen and examined earlier this morning. No complaints overnight. Post PCI discharge instructions discussed at length with patient. No issues with R+L femoral access sites. Objective Vital Signs, Last 4 Hours Temp Pulse Resp BP Pulse Ox 03/18/16 09:11 82 03/18/16 07:04 98.4 F 63 18 124/67 98 General: Conversant, No Apparent Distress HEENT: Atraumatic, Normocephaly, Mucus Membranes Moist Neck: No JVD Cardiac: Reg Rate and Rhythm, Normal S1 and S2 Lungs: Normal Breath Sounds Neuro: Alert and responsive Abdomen: Soft Skin: No rashes noted on visualized skin Musculoskeletal: No Chest Wall Tenderness Extremities: No Edema, Normal Pulses Other: Right groin cath site (03/14): mild ecchymosis at site (soft), no hemtoma or oozing. +2 PT/DP pulses bilaterally. Left groin cath site (03/17): normal, no hematoma, ecchymosis, or oozing. dressing removed. +2 PT/DP bilaterally. Results 03/18/16 03:56 03/18/16 03:56 Lab Results 03/18/16 03/18/16 03:56 03:56 WBC 4.9 Hgb 10.3 L Hct 32.2 L Plt Count 130 L Sodium 137 Potassium 4.1 Chloride 103 Carbon Dioxide 26 BUN 16 Creatinine 0.82 Glucose 182 H Calcium 8.6 - Imaging and Cardiology Echo: report reviewed Cardiac cath: report reviewed Other Results: 12 hour tele: avg HR=68 SR. No significant event noted. Consult Discharge Plan - Plan Referrals: Susan Kruger MD [Primary Care Provider] -
[2016-03-18 11:13] VITALS: BP 119/67
[2016-03-18] MEDS ORDERED: Isosorbide MONOnitrate (24 HR) 30 MG TAB.ER.24H PO SCH (12:00)
--- NOTE | 2016-03-18 12:07 | Discharge Summary ---
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 Qualified Code(s): E11.9 - Type 2 diabetes mellitus without complications ; 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 (3) Hyperlipidemia Priority: Secondary Status: Chronic Qualifiers: Hyperlipidemia type: mixed hyperlipidemia Qualified Code(s): E78.2 - Mixed hyperlipidemia (4) Hypertension Priority: Secondary Status: Chronic Qualifiers: Hypertension type: essential hypertension Qualified Code(s): I10 - Essential (primary) hypertension - Discharge Medications Prescriptions: Aspirin 81 mg PO DAILY #90 tab.chew Clopidogrel [Plavix] 75 mg PO DAILY #90 tablet Isosorbide MONOnitrate (24 HR) [Imdur] 30 mg PO DAILY #90 tab.er.24h Lisinopril [Zestril] 2.5 mg PO DAILY #30 tablet Home Medications: Doxepin HCl 100 mg PO HS 03/14/16 [History] Meloxicam 15 mg PO DAILY 03/14/16 [History] Metoprolol Tartrate [Lopressor] 50 mg PO BID 03/14/16 [History] Omeprazole [PriLOSEC] 40 mg PO DAILY 03/14/16 [History] Sitagliptin Phos/Metformin HCl [Janumet Xr 50-1,000 mg Tablet] 1 tab PO DAILY [History] Aspirin 81 mg PO DAILY #90 tab.chew 03/18/16 [Rx] Clopidogrel [Plavix] 75 mg PO DAILY #90 tablet 03/18/16 [Rx] Insulin Glargine,Hum.rec.anlog [Lantus Solostar] 30 unit SQ DAILY #0 03/18/16 [ Rx] Isosorbide MONOnitrate (24 HR) [Imdur] 30 mg PO DAILY #90 tab.er.24h 03/18/16 [ Rx] Lisinopril [Zestril] 2.5 mg PO DAILY #30 tablet 03/18/16 [Rx] Pravastatin Sodium [Pravachol] 40 mg PO DAILY #90 03/18/16 [Rx] Allergies/Adverse Reactions: Allergies nitrofurantoin [From Macrodantin] Allergy (Verified 03/14/16 06:22) Hives Penicillins Allergy (Verified 03/14/16 06:22) Hives Procedures/tests Complete & Pending: Procedures Performed prior 72 hours Category Date Time Status CL Cardiac Catheterization [CL] 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 03/17/16 07:00 Completed Date of admission: 03/14/16 10:56 Primary care physician: Susan Castellano Consults: 03/14/16 12:19 Consult to Cardiac Rehabilitation-Phase1 [CONS] Routine Comment: Reason for Consult: post op cath Call Completed: Yes 03/14/16 12:22 Consult to Cardiac Rehabilitation-Phase1 [CONS] Routine Comment: Reason for Consult: AMI Call Completed: Yes Consult to Nurse Navigator [CONS] Routine Comment: 03/17/16 09:59 Consult to Cardiac Rehabilitation-Phase1 [CONS] Routine Comment: Reason for Consult: post op cath Call Completed: Yes 03/17/16 10:04 Consult to Cardiac Rehabilitation-Phase1 [CONS] Routine Comment: Reason for Consult: post op cath Call Completed: Yes - Patient Status Disposition: Home, Self-Care Condition: Good Overall status at discharge: patient is back to baseline - Discharge Instructions Follow Up With: Susan Kruger MD [Primary Care Provider] - (SR on 03/18/16 Called office at 10:07 office said they would call me back or call the pt.) Giuseppe Ceron MD [Partnered Physician] - 03/25/16 9:00 am (IN [facility]) - Diet and Activity Activity: increase activity as tolerated Diet: low fat, low cholesterol Hospital course: Ms. Jones is a 70 year old female presented to the hospital with chest pain and was found to have an ST elevated HI. Cardiology was consulted. She had a left heart catheterization with stent placement. She is continued on Aspirin and Statin. Low dose imdur was also added. Pt will be discharged home in stable condition. - Time Spent with Patient Total time spent providing and/or coordinating discharge services: - Constitutional Vitals: Temp Pulse Resp BP Pulse Ox 97.9 F 68 16 119/67 93 L 03/18/16 11:12 03/18/16 11:12 03/18/16 11:12 03/18/16 11:12 03/18/16 11:12 General appearance: Present: cooperative, A&O X 3, pleasant, obese, answers questions appropriately - Head Head exam: Present: atraumatic, normocephalic - Eye Eye exam: Present: PERRL, conjuntiva pink, sclera anicteric Pupils: Present: PERRL - Neck Neck exam general surgery: Present: supple, trachea midline. Absent: lymphadenopathy - Respiratory Respiratory exam: Present: CTAB. Absent: accessory muscle use, rales, rhonchi, wheezes - Cardiovascular Cardiovascular exam: Present: RRR, +S1, +S2. Absent: diastolic murmur, gallop, rubs, systolic murmur - GI/Abdominal GI/Abdominal exam: Present: normal bowel sounds, soft, no peritoneal signs. Absent: distended, tenderness - Extremities Exam Extremities exam: Present: warm, radial pulses palpable and symetrical. Absent : calf tenderness, cyanotic, pedal edema - Neurological Exam Neurological exam: Present: CN II-XII intact, oriented X3, no focal deficits. Absent: pronater drift, facial droop, speech deficit - Skin Skin exam: Present: dry, intact
[2016-03-18] MEDS ORDERED: Sennosides 8.6 MG TABLET PO SCH (12:30)
--- NOTE | 2016-03-18 16:43 | Electrocardiograph Report ---
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
== END 2016-03-18 15:02 | disposition home or self-care (01) | DRG 247 ==
LOC: 3BNU 06:20 → EMEROO 06:20 → ICNU 10:53 → SUATTDRO 10:56 → ICNU 11:00 → 2NNU 03-17 17:06
PROVIDERS: ADMIT Internal Medicine; ATTEND Family Medicine

== ENCOUNTER 2018-01-01 09:58 | Observation (INO) ==
--- NOTE | 2018-01-01 10:55 | Emergency Department Note ---
Disposition Clinical Impression: Chest pain Qualifiers: Chest pain type: unspecified Qualified Code(s): R07.9 - Chest pain, unspecified Disposition: Admitted As Inpatient Forms: ED Satisfaction Letter Chest Pain HPI - General Chief Complaint: ED Chest Pain Stated Complaint: Chest Pain Time Seen by Provider: 01/01/18 10:26 Vital Signs Reviewed: Yes Nursing Notes Reviewed: Yes - History of Present Illness HPI Narrative: 72-year-old female past medical history of coronary artery disease, MIs, presents to the emergency department with concern for chest pain. Patient states that started last night. Reported that it was central in nature and it was a dull pain. Patient states that it has been worse in the past. Patient says her chest pain is intermittent at this time. Denies it radiating anywhere. Patient reports a headache, but states that this is her typical headache as well. Denies any nausea or vomiting. Severity scale (1-10): 7 - Related Data Home Medications Medication Instructions Recorded Confirmed Meloxicam 15 mg PO DAILY 03/14/16 01/01/18 Metoprolol Tartrate [Lopressor] 50 mg PO BID 03/14/16 01/01/18 Omeprazole [PriLOSEC] 40 mg PO DAILY 03/14/16 01/01/18 Insulin Glargine,Hum.rec.anlog 8 unit SQ DAILY 01/01/18 01/01/18 [Lantus Solostar] Trazodone HCl 200 mg PO HS 01/01/18 01/01/18 Triamterene/HCTZ 75/50mg [Maxzide] 1 tab PO DAILY 01/01/18 01/01/18 glipiZIDE [Glipizide] 10 mg PO BID 01/01/18 01/01/18 metFORMIN [Glucophage] 1,000 mg PO BIDWM 01/01/18 01/01/18 Previous Rx's Medication Instructions Recorded Aspirin 81 mg PO DAILY #90 tab.chew 03/18/16 Allergies Allergy/AdvReac Type Severity Reaction Status Date / Time nitrofurantoin Allergy Hives Verified 03/14/16 06:22 [From Macrodantin] Penicillins Allergy Hives Verified 03/14/16 06:22 All systems ED: reviewed and negative except as stated. Review of Systems: As Per HPI Constitutional: Denies: fever Cardiovascular: Reports: chest pain Respiratory: Denies: cough, dyspnea Gastrointestinal: Denies: abdominal pain, nausea, vomiting Genitourinary: Denies: urgency, dysuria, frequency Musculoskeletal: Denies: back pain, neck pain Chest Pain PMH - Past Medical History Medical history: Reports: coronary artery disease, diabetes, GERD, hyperlipidemia, hypertension, myocardial infarction Surgical history: Reports: appendectomy, , other, LE stent (s) Psychiatric history: Reports: no psych history OVERHEAD WORKER history: Reports: no OVERHEAD WORKER history - Social History Smoking Status: Former smoker Alcohol use: Reports: none Drug use: Reports: none Physical Exam - General Limitations: no limitations General appearance: alert, in no apparent distress - Head Head exam: normal inspection - Eye Eye exam: Present: EOMI - ENT ENT exam: mucous membranes moist - Neck Neck exam: Present: trachea midline - Chest Chest inspection: Present: symmetric chest wall rise - Respiratory Respiratory exam: Present: normal lung sounds bilaterally. Absent: respiratory distress, accessory muscle use - Cardiovascular Cardiovascular exam: Present: regular rate, normal rhythm, normal heart sounds - Abdominal Exam Abdominal exam: Present: soft, Non-Tender. Absent: tenderness - Extremities Exam Extremities exam: Present: normal capillary refill - Back Exam Back exam: Present: full ROM - Neurological Exam Neurological exam: Present: alert, oriented X3 - Psychiatric Psychiatric exam: Present: normal affect, normal mood - Skin Skin exam: Present: warm, dry, intact, normal color Course Vital Signs Temperature 98.5 F 01/01/18 10:16 Pulse Rate 61 01/01/18 10:16 Respiratory Rate 18 01/01/18 10:16 Blood Pressure 138/83 01/01/18 10:16 O2 Sat by Pulse Oximetry 97 01/01/18 10:16 Temperature 97.6 F 01/01/18 14:41 Pulse Rate 60 01/01/18 14:41 Respiratory Rate 14 01/01/18 14:41 Blood Pressure 165/78 01/01/18 14:41 O2 Sat by Pulse Oximetry 97 01/01/18 14:41 Oxygen Delivery Oxygen Delivery Room Air Chest Pain - MDM Narrative Medical decision making narrative: 72-year-old female presents emergency Department with chest pain. Patient has history of coronary artery disease. Patient has heart score 5. EKG did not reveal any ischemic ST changes. Chest x-ray did not reveal any acute abnormalities. Patient received aspirin per us. We did not try nitroglycerin his blood pressures were soft. Patient was given medications for her headache. Troponin was negative. Patient met the hospitalist for further management. Do not suspect pulmonary embolus as patient was not hypoxic and hypotensive. Patie nt had equal pedal pulses bilaterally, not hypertensive, no mediastinal widening on chest x-ray do not suspect aortic dissection. Chest X-Ray 01/01/18 10:46 IMPRESSION: No acute process. D/ / Dago Evans MD / Dago Evans MD Interpreting Provider: Dago Evans MD - Lab Data Result diagrams: 01/01/18 10:56 01/01/18 10:56 Lab Results 01/01/18 01/01/18 01/01/18 Range/Units 10:56 10:56 10:56 WBC 4.0 L (4.3-11.1) K/mcL RBC 4.05 (3.82-4.97) M/mcL Hgb 11.8 (11.5-15.4) g/dL Hct 36.2 (35.3-44.9) % MCV 89.4 (83.0-100.0) fL MCH 29.1 (28.0-33.3) pg MCHC 32.6 (31.6-35.5) g/dL RDW 12.9 (11.5-14.5) % Plt Count 141 (140-400) K/mcL MPV 8.7 L (9.4-12.4) fL Immature Gran % 0.3 (0-4) % Seg Neutrophils % 54.2 % Lymphocytes % 34.2 % Monocytes % 7.5 % Eosinophils % 2.8 % Basophils % 1.0 % Neutrophils # 2.2 (1.6-8.9) K/mcL Lymphocytes # 1.4 (0.6-4.6) K/mcL Monocytes # 0.3 (0.0-1.3) K/mcL Eosinophils # 0.1 (0.0-0.6) K/mcL Basophils # 0.0 (0.0-0.2) K/mcL PT 11.3 (9.4-12.1) Seconds INR 1.0 APTT 28.6 (26.0-36.0) Seconds Sodium (136-145) mEq/L Potassium (3.5-5.1) mEq/L Chloride (98-107) mEq/L Carbon Dioxide (23-29) mEq/L BUN (8-23) mg/dL Creatinine (0.60-1.20) mg/dL Est GFR ( Amer) (> 60) Est GFR (Non-Af Amer) (> 60) BUN/Creatinine Ratio (6-26) Glucose (70-105) mg/dL POC Glucose (70-99) mg/dL Calculated Osmolality (280-300) Calcium (8.6-10.3) mg/dL Troponin I (< 0.04) ng/mL B-Natriuretic Peptide 59 (Less than 100) pg/mL 01/01/18 01/01/18 01/01/18 Range/Units 10:56 14:40 16:50 WBC (4.3-11.1) K/mcL RBC (3.82-4.97) M/mcL Hgb (11.5-15.4) g/dL Hct (35.3-44.9) % MCV (83.0-100.0) fL MCH (28.0-33.3) pg MCHC (31.6-35.5) g/dL RDW (11.5-14.5) % Plt Count (140-400) K/mcL MPV (9.4-12.4) fL Immature Gran % (0-4) % Seg Neutrophils % % Lymphocytes % % Monocytes % % Eosinophils % % Basophils % % Neutrophils # (1.6-8.9) K/mcL Lymphocytes # (0.6-4.6) K/mcL Monocytes # (0.0-1.3) K/mcL Eosinophils # (0.0-0.6) K/mcL Basophils # (0.0-0.2) K/mcL PT (9.4-12.1) Seconds INR APTT (26.0-36.0) Seconds Sodium 137 (136-145) mEq/L Potassium 4.0 (3.5-5.1) mEq/L Chloride 100 (98-107) mEq/L Carbon Dioxide 30 H (23-29) mEq/L BUN 26 H (8-23) mg/dL Creatinine 0.90 (0.60-1.20) mg/dL Est GFR ( Amer) > 60 (> 60) Est GFR (Non-Af Amer) > 60 (> 60) BUN/Creatinine Ratio 29 H (6-26) Glucose 91 (70-105) mg/dL POC Glucose 65 L (70-99) mg/dL Calculated Osmolality 288 (280-300) Calcium 9.7 (8.6-10.3) mg/dL Troponin I < 0.03 0.04 H* (< 0.04) ng/mL B-Natriuretic Peptide (Less than 100) pg/mL - EKG Data EKG attestation: Yes I reviewed and interpreted this EKG. EKG results narrative: 10:20 The trigger a 61 bpm, KS interval 187 ms, QRS duration 94 ms, QTC 402 ms, left axis deviation. Sinus rhythm. No acute ischemic ST changes when in comparison with a previous EKG obtained on March 18, 2016. Heart Score - Score History: Moderately Suspicious EKG: Normal Age: Greater than 65 Risk Factors: Equal/Greater than 3 risk factor or history of atherosclerotic disease Troponin: Less than normal limit HEART Score Total: 5
[2018-01-01] MEDS ORDERED: 0.9 % Sodium Chloride 1,000 ML IVC ONE (10:56)
[2018-01-01] MEDS ORDERED: Aspirin 81 MG TAB.CHEW PO STA (11:05)
[2018-01-01 11:09] LABS: Eosinophils # 0.1 K/mcL (0.0-0.6); Eosinophils % 2.8 %; Hematocrit 36.2 % (35.3-44.9); Hemoglobin 11.8 g/dL (11.5-15.4); Immature Granulocytes % 0.3 % (0-4); Lymphocytes # 1.4 K/mcL (0.6-4.6); Lymphocytes % 34.2 %; Mean Corpuscular HGB Conc 32.6 g/dL (31.6-35.5); Mean Corpuscular Hemoglobin 29.1 pg (28.0-33.3); Mean Corpuscular Volume 89.4 fL (83.0-100.0); Mean Platelet Volume 8.7 fL (9.4-12.4); Monocytes # 0.3 K/mcL (0.0-1.3); Monocytes % 7.5 %; Neutrophils # 2.2 K/mcL (1.6-8.9); Platelet Count 141 K/mcL (140-400); Red Blood Count 4.05 M/mcL (3.82-4.97); Red Cell Distribution Width 12.9 % (11.5-14.5); Segmented Neutrophils % 54.2 %
[2018-01-01] MEDS: Nitroglycerin 0.4 MG TAB.SUBL SL PRN ×4 (11:09→16:21)
[2018-01-01 11:31] LABS: BUN/Creatinine Ratio 29 (6-26); Blood Urea Nitrogen 26 mg/dL (8-23); Calcium 9.7 mg/dL (8.6-10.3); Carbon Dioxide 30 mEq/L (23-29); Chloride 100 mEq/L (98-107); Glucose 91 mg/dL (70-105); Osmolality,Calculated 288 (280-300); Sodium 137 mEq/L (136-145); Troponin I < 0.03 ng/mL (< 0.04); eGFR For Non-African Americans > 60 (> 60)
[2018-01-01 11:34] LABS: Prothrombin Time 11.3 Seconds (9.4-12.1)
[2018-01-01 11:37] LABS: Activated Partial Thrombo Time 28.6 Seconds (26.0-36.0)
[2018-01-01] MEDS ORDERED: Metoclopramide 10 MG/2 ML VIAL IVP ONE (12:26)
--- NOTE | 2018-01-01 12:43 | Emergency Department Note ---
Disposition Clinical Impression: Chest pain Qualifiers: Chest pain type: unspecified Qualified Code(s): R07.9 - Chest pain, unspecified Disposition: Admitted As Inpatient Referrals: Ismael,Madai Dominique CNP [Primary Care Provider] - General Adult HPI - General Chief complaint: ED Chest Pain Stated complaint: Chest Pain Time Seen by Provider: 01/01/18 10:26 Limitations: no limitations - History of Present Illness Pain Scale: 3 - Related Data Home Medications Medication Instructions Recorded Confirmed Doxepin HCl 100 mg PO HS 03/14/16 03/14/16 Meloxicam 15 mg PO DAILY 03/14/16 03/14/16 Metoprolol Tartrate [Lopressor] 50 mg PO BID 03/14/16 03/14/16 Omeprazole [PriLOSEC] 40 mg PO DAILY 03/14/16 03/14/16 Sitagliptin Phos/Metformin HCl 1 tab PO DAILY 03/14/16 03/14/16 [Janumet Xr 50-1,000 mg Tablet] Previous Rx's Medication Instructions Recorded Aspirin 81 mg PO DAILY #90 tab.chew 03/18/16 Atorvastatin [Lipitor] 40 mg PO HS #90 tablet 03/18/16 Clopidogrel [Plavix] 75 mg PO DAILY #90 tablet 03/18/16 Insulin Glargine,Hum.rec.anlog 30 unit SQ DAILY #0 03/18/16 [Lantus Solostar] Isosorbide MONOnitrate (24 HR) 30 mg PO DAILY #90 tab.er.24h 03/18/16 [Imdur] Lisinopril [Zestril] 2.5 mg PO DAILY #30 tablet 03/18/16 Allergies Allergy/AdvReac Type Severity Reaction Status Date / Time nitrofurantoin Allergy Hives Verified 03/14/16 06:22 [From Macrodantin] Penicillins Allergy Hives Verified 03/14/16 06:22 Constitutional: Denies: fever Cardiovascular: Reports: chest pain Respiratory: Denies: cough, dyspnea Gastrointestinal: Denies: abdominal pain, nausea, vomiting Genitourinary: Denies: urgency, dysuria, frequency Musculoskeletal: Denies: back pain, neck pain Past Medical History - Past Medical History Medical history: Reports: coronary artery disease, diabetes, GERD, hyperlipidemia, hypertension, myocardial infarction Surgical history: Reports: appendectomy, , other, LE stent (s) Psychiatric history: Reports: no psych history 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 - Social History Smoking Status: Former smoker Smokeless Tobacco Status: No Alcohol use: Reports: none Drug use: Reports: none Physical Exam - General Limitations: no limitations General appearance: alert, in no apparent distress Course Vital Signs Temperature 98.5 F 01/01/18 10:16 Pulse Rate 61 01/01/18 10:16 Respiratory Rate 18 01/01/18 10:16 Blood Pressure 138/83 01/01/18 10:16 O2 Sat by Pulse Oximetry 97 01/01/18 10:16 Temperature 98.5 F 01/01/18 10:16 Pulse Rate 55 01/01/18 12:24 Respiratory Rate 17 01/01/18 12:24 Blood Pressure 129/60 01/01/18 12:24 O2 Sat by Pulse Oximetry 97 01/01/18 12:24 Oxygen Delivery Oxygen Delivery Room Air Medical Decision Making - Lab Data Result diagrams: 01/01/18 10:56 01/01/18 10:56 Lab Results 01/01/18 01/01/18 01/01/18 Range/Units 10:56 10:56 10:56 WBC 4.0 L (4.3-11.1) K/mcL RBC 4.05 (3.82-4.97) M/mcL Hgb 11.8 (11.5-15.4) g/dL Hct 36.2 (35.3-44.9) % MCV 89.4 (83.0-100.0) fL MCH 29.1 (28.0-33.3) pg MCHC 32.6 (31.6-35.5) g/dL RDW 12.9 (11.5-14.5) % Plt Count 141 (140-400) K/mcL MPV 8.7 L (9.4-12.4) fL Immature Gran % 0.3 (0-4) % Seg Neutrophils % 54.2 % Lymphocytes % 34.2 % Monocytes % 7.5 % Eosinophils % 2.8 % Basophils % 1.0 % Neutrophils # 2.2 (1.6-8.9) K/mcL Lymphocytes # 1.4 (0.6-4.6) K/mcL Monocytes # 0.3 (0.0-1.3) K/mcL Eosinophils # 0.1 (0.0-0.6) K/mcL Basophils # 0.0 (0.0-0.2) K/mcL PT 11.3 (9.4-12.1) Seconds INR 1.0 APTT 28.6 (26.0-36.0) Seconds Sodium 137 (136-145) mEq/L Potassium 4.0 (3.5-5.1) mEq/L Chloride 100 (98-107) mEq/L Carbon Dioxide 30 H (23-29) mEq/L BUN 26 H (8-23) mg/dL Creatinine 0.90 (0.60-1.20) mg/dL Est GFR ( Amer) > 60 (> 60) Est GFR (Non-Af Amer) > 60 (> 60) BUN/Creatinine Ratio 29 H (6-26) Glucose 91 (70-105) mg/dL Calculated Osmolality 288 (280-300) Calcium 9.7 (8.6-10.3) mg/dL Troponin I < 0.03 (< 0.04) ng/mL Attestation Statement - Attestation Attestation: I examined this patient and my medical decision-making was reviewed with the Resident Physician. I agree with the documented findings, disposition and treatment plan as described except to the extent set forth below. 72 year old female prsents to the ED with complanits of chest pain and has a history of mutiple stents and is presenting in a similar fashion to her previous episodes. Patinet has a negative troponin but we will admit to medicine with ASA therapy and migraine cocktail for headche theearpy. She is not hypertensive and headache occured recently while here inthe ED
--- NOTE | 2018-01-01 13:12 | Internal Med History&Physical ---
Date of Encounter: 01/01/18 Time of Encounter: 13:09 Internal Medicine - H&P: HPI Chief complaint: Chest pain Admitted From: Home Plans for Post Hospital Care: Home History of present illness: Ms. Jones is a 72 year old female with history of CAD status post stent in 2017, hypertension and hyperlipidemia and diabetes presented to the emergency department with chest pain. As per patient her pain started the night before admission while she was watching TV, located in the middle of her chest, pressure-like, 6 out of 10 on severity, nonradiating and not associated with shortness of breath. Her sleeping medications and went to bed however woke up at her usual morning time and noticed that she still is feeling this pressure- like pain in the middle of her chest so she decided to come to the emergency department. As per patient her pain is different than the pain that she experienced when she had myocardial infarction in 2017. Cannot recall alleviating or aggravating factors. She denies fever, chills, nausea, vomiting, diarrhea, palpitations, PND, orthopnea, leg swelling, calf tenderness, shortness of breath. Chest pain is not exertional, she can ambulate for more than 2 blocks without having to stop for chest pain or shortness of breath. In the emergency department troponin was negative, a as per ED physician EKG did not show any significant changes however she was endorsed for admission as her heart score was elevated. Past Med Surg Social Fam HX - Past Medical History Medical history: coronary artery disease, diabetes, GERD, hyperlipidemia, hypertension, myocardial infarction Psychiatric history: no psych history - Past Surgical History Surgical History: appendectomy, , other, LE stent (s) Additional surgical history: ruptured appendix in childhood, 6 stents - Social History Smoking Status: Former smoker Smokeless Tobacco Status: No Alcohol use: none Drug use: none Internal Medicine - H&P: Meds Meloxicam 15 mg PO DAILY 03/14/16 [History] Metoprolol Tartrate [Lopressor] 50 mg PO BID 03/14/16 [History] Omeprazole [PriLOSEC] 40 mg PO DAILY 03/14/16 [History] Aspirin 81 mg PO DAILY #90 tab.chew 03/18/16 [Rx] Insulin Glargine,Hum.rec.anlog [Lantus Solostar] 8 unit SQ DAILY 01/01/18 [History] Trazodone HCl 200 mg PO HS 01/01/18 [History] Triamterene/HCTZ 75/50mg [Maxzide] 1 tab PO DAILY 01/01/18 [History] glipiZIDE [Glipizide] 10 mg PO BID 01/01/18 [History] metFORMIN [Glucophage] 1,000 mg PO BIDWM 01/01/18 [History] Allergy/AdvReac Type Severity Reaction Status Date / Time nitrofurantoin Allergy Hives Verified 03/14/16 06:22 [From Macrodantin] Penicillins Allergy Hives Verified 03/14/16 06:22 All Systems PM: A 10-system review of systems was performed and is negative for pertinent f indings except as documented above in the HPI. - Constitutional Vitals: Temp Pulse Resp BP Pulse Ox 98.5 F 60 16 129/65 97 01/01/18 10:16 01/01/18 13:08 01/01/18 13:08 01/01/18 13:08 01/01/18 12:24 Exam: General: Patient is alert, oriented, no acute distress, Head: atraumatic, normocephalic, Eye: normal appearance, PERRL, no scleral icterus, no conjunctival injection ENT: mucous membranes moist, normal external ear exam Neck: normal inspection, trachea midline, full ROM, no carotid bruits Chest: normal inspection, symmetric chest rise Respiratory: Good respiratory effort. Bilateral breath sounds are clear without wheezing, crackles, or rhonchi. Cardiovascular: Regular rate and rhythm. s1 and s2 No clicks, rubs, gallops, or murmors. Abdomen: Bowel sounds present normoactive x-4 quadrants. Abdomen is soft, nondistended. no Epigastric tenderness. No guarding or rebound. No organomegaly noted, obese musculoskeletal: Spontaneously moving all extremities. no edema, no calf tenderness Skin: warm, dry, intact. Neuro: Alert and oriented x4. Sensation light touch intact. Cranial nerves 2- 12 is intact. Not aphasic, gait is steady, rapid hand movements intact, [id number] intact, Psych: Patient's affect is normal Internal Med - H&P Results - Labs CBC & Chem 7: 01/01/18 10:56 01/01/18 10:56 Labs: Short CBC 01/01/18 Range/Units 10:56 WBC 4.0 L (4.3-11.1) K/mcL Hgb 11.8 (11.5-15.4) g/dL Hct 36.2 (35.3-44.9) % Plt Count 141 (140-400) K/mcL Neutrophils # 2.2 (1.6-8.9) K/mcL BMP 01/01/18 10:56 Sodium 137 Potassium 4.0 Chloride 100 Carbon Dioxide 30 H BUN 26 H Creatinine 0.90 Glucose 91 Calcium 9.7 Cardiac Enzymes 01/01/18 Range/Units 10:56 Troponin I < 0.03 (< 0.04) ng/mL - EKG Data -: EKG Interpreted by Myself (unable to locate admission EKG - ordered an admission ekg stat ) - Impressions ITS Impressions Chest X-Ray 01/01/18 10:46 IMPRESSION: No acute process. D/ / Dago Evans MD / Dago Evans MD Interpreting Provider: Dago Evans MD - Assessment and plan (1) Chest pain Current Visit: Yes Status: Acute Assessment and plan: Chest pain rule out ACS Follow serial troponins and EKGs Q6H Given aspirin 325 mg in the ED Continue with nitroglycerin sublingual every 5 minutes when necessary for chest pain Continue home medications if not contraindicated ( including ASA, Statins and BB) Lipid panel, A1c, TSH in the morning TTE cardiac monitoring admission EKG stat Cardiac catheter 02/2016-Impressions: There is severe one vessel coronary artery disease. Patient had successful PTCA/Drug-Eluting Stent placement in the distal LAD. Stent placed from a prior procedure in the proximal and mid Circumflex is patent. TTE 2017- Impressions: Normal left ventricular size and systolic function, LVEF 65%. Indeterminate diastolic function. Normal right ventricular size and function. Mildly dilated left atrium. No significant valvular dysfunction. Mild pulmonary hypertension. Estimated RVSP = 37 mmHg. Qualifiers: Chest pain type: unspecified Qualified Code(s): R07.9 - Chest pain, unspecified (2) Diabetes Current Visit: No Status: Chronic Assessment and plan: started her on sliding scale insulin adjust as per finger sticks A1c in AM Qualifiers: Diabetes mellitus type: type 2 Diabetes mellitus nursing home insulin use: with nursing home use Diabetes mellitus complication status: without complication Qualified Code(s): E11.9 - Type 2 diabetes mellitus without complications; Z79.4 - intermediate (current) use of insulin (3) Hyperlipidemia Current Visit: No Status: Chronic Assessment and plan: continue statins lipid panel in AM Qualifiers: Hyperlipidemia type: unspecified Qualified Code(s): E78.5 - Hyperlipidemia, unspecified (4) Hypertension Current Visit: No Status: Chronic Assessment and plan: continue home medications if not CI Qualifiers: Hypertension type: essential hypertension Qualified Code(s): I10 - Essential (primary) hypertension (5) DVT prophylaxis Current Visit: Yes Status: Acute Assessment and plan: heparin sc - Time Spent With Patient Total time spent is greater than 50% in coordination of care (as documented) at patient's floor/unit and/or counseling patient:
[2018-01-01] MEDS ORDERED: D5% in Water 1,000 ML IVC PRN (13:39)
[2018-01-01] MEDS ORDERED: *HR* Dextrose 50 % in Water (Syg) 50 ML SYRINGE IVP PRN (13:39)
[2018-01-01] MEDS ORDERED: Dextrose Gel 15 GM/37.5 ML TUBE PO PRN ×2 (13:39)
[2018-01-01] MEDS ORDERED: Naloxone 0.4 MG/ML INJ IVP PRN (13:40)
[2018-01-01] MEDS ORDERED: *HR* Heparin 5,000 UNIT/ML VIAL SQ SCH (14:00)
[2018-01-01] MEDS ORDERED: Pantoprazole 40 MG VIAL IVP ONE (16:26)
[2018-01-01] MEDS ORDERED: *HR* Heparin 5,000 UNIT/ML VIAL IVP ONE (17:40)
[2018-01-01] MEDS ORDERED: *HR* Heparin 5,000 UNIT/ML VIAL IVP PRN ×2 (17:40)
[2018-01-01] MEDS ORDERED: Heparin 25,000 UNIT/500 ML D5W 25,000 UNIT/500 ML BAG IVC SCH (17:45)
[2018-01-01] MEDS: Acetaminophen 325 MG TABLET PO PRN (18:26)
[2018-01-01] MEDS: Insulin LISPRO 300 UNITS/3 ML VIAL SQ SCH (18:27)
--- NOTE | 2018-01-01 19:06 | Electrocardiograph Report ---
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
[2018-01-01] MEDS ORDERED: Insulin DETEMIR 100 UNIT/ML X5UNITS SQ SCH (21:00)
[2018-01-01] MEDS: traZODone 50 MG TABLET PO SCH (21:17)
[2018-01-01] MEDS: Insulin DETEMIR 100 UNIT/ML X5UNITS SQ SCH (22:07)
[2018-01-02] MEDS: Insulin LISPRO 300 UNITS/3 ML VIAL SQ SCH ×5 (00:07→21:44)
[2018-01-02] MEDS: Acetaminophen 325 MG TABLET PO PRN ×2 (00:07→08:43)
[2018-01-02 00:38] LABS: Basophils % 0.5 %; Eosinophils # 0.2 K/mcL (0.0-0.6); Eosinophils % 2.8 %; Hematocrit 33.5 % (35.3-44.9); Hemoglobin 11.2 g/dL (11.5-15.4); Immature Granulocytes % 0.5 % (0-4); Lymphocytes # 2.5 K/mcL (0.6-4.6); Lymphocytes % 41.2 %; Mean Corpuscular HGB Conc 33.4 g/dL (31.6-35.5); Mean Corpuscular Hemoglobin 29.5 pg (28.0-33.3); Mean Corpuscular Volume 88.2 fL (83.0-100.0); Mean Platelet Volume 9.3 fL (9.4-12.4); Monocytes # 0.5 K/mcL (0.0-1.3); Monocytes % 7.8 %; Neutrophils # 2.8 K/mcL (1.6-8.9); Platelet Count 154 K/mcL (140-400); Segmented Neutrophils % 47.2 %
[2018-01-02 01:00] LABS: BUN/Creatinine Ratio 23 (6-26); Blood Urea Nitrogen 24 mg/dL (8-23); Calcium 9.3 mg/dL (8.6-10.3); Carbon Dioxide 27 mEq/L (23-29); Chloride 100 mEq/L (98-107); Chol/HDL Ratio 6.8 (0-4.9); Cholesterol 279 mg/dL (< 200); Glucose 146 mg/dL (70-105); HDL Cholesterol 41 mg/dL (40-59); LDL Cholesterol,Calculated 188 mg/dL (0-99); Magnesium 1.3 mg/dL (1.6-2.6); Osmolality,Calculated 287 (280-300); Phosphorous 3.2 mg/dL (2.7-4.5); Potassium 3.6 mEq/L (3.5-5.1); Sodium 135 mEq/L (136-145); Triglycerides 252 mg/dL (< 150); eGFR For Non-African Americans 52 (> 60)
[2018-01-02 01:12] LABS: Thyroid Stimulating Hormone 4.776 mcIU/mL (0.340-5.600)
[2018-01-02 06:54] LABS: Estimated Average Glucose 137 mg/dl; Hemoglobin A1C 6.4 %
[2018-01-02] MEDS: Aspirin 81 MG TAB.CHEW PO SCH (08:32)
--- NOTE | 2018-01-02 08:33 | Internal Med Progress Note ---
Hospitalist Progress Note - Encounter Date of Encounter: 01/02/18 Time of Encounter: 08:31 - Subjective Interval History: Patient was seen and examined at bedside. Reports that her chest pressure has gotten better however she did feel chest pressure once throughout the night that relieved by itself after a few minutes. She tolerated diet, currently denies any fever, chills, chest pain, palpitations or shortness of breath, PND or orthopnea. discussed that troponins trended up and she is in agreement to continue heparin drip and is awaiting cardiology to see her. has no complaints - Exam Vitals: Temp Pulse Resp BP Pulse Ox 98.1 F 63 18 137/73 90 01/02/18 07:21 01/02/18 07:21 01/02/18 07:21 01/02/18 07:21 01/02/18 07:21 Exam: General: Patient is alert, oriented, no acute distress, Head: atraumatic, normocephalic, Eye: normal appearance, PERRL, no scleral icterus, no conjunctival injection ENT: mucous membranes moist, normal external ear exam Neck: normal inspection, trachea midline, full ROM, no carotid bruits Chest: normal inspection, symmetric chest rise Respiratory: Good respiratory effort. Bilateral breath sounds are clear without wheezing, crackles, or rhonchi. Cardiovascular: Regular rate and rhythm. s1 and s2 No clicks, rubs, gallops, or murmors. Abdomen: Bowel sounds present normoactive x-4 quadrants. Abdomen is soft, nondistended. no Epigastric tenderness. No guarding or rebound. No organomegaly noted musculoskeletal: Spontaneously moving all extremities. no edema, no calf tenderness Skin: warm, dry, intact. Neuro: Alert and oriented x4. Sensation light touch intact. Cranial nerves 2- 12 is intact. Not aphasic, gait is steady, rapid hand movements intact, [id number] intact, Psych: Patient's affect is normal - Assessment and Plan (1) NSTEMI (non-ST elevated myocardial infarction) Current Visit: Yes Status: Acute Assessment and Plan: Troponin trended up Was started on heparin drip Given aspirin 325 mg in the ED Continue with nitroglycerin sublingual every 5 minutes when necessary for chest pain Continue aspirin, beta blockers and statins Lipid panel noted- was counseled about diet- will continue atorvastatin TTE pending will follow continue cardiac monitoring cardiology consulted will follow recommendations EKG: SINUS RHYTHM PATTERN CONSISTENT WITH PULMONARY DISEASE INFERIOR MYOCARDIAL INFARCTION, OF INDETERMINATE AGE POOR R WAVE PROGRESSION Cardiac catheter 02/2016-Impressions: There is severe one vessel coronary artery disease. Patient had successful PTCA/Drug-Eluting Stent placement in the distal LAD. Stent placed from a prior procedure in the proximal and mid Circumflex is patent. TTE 2016- Impressions: Normal left ventricular size and systolic function, LVEF 65%. Indeterminate diastolic function. Normal right ventricular size and function. Mildly dilated left atrium. No significant valvular dysfunction. Mild pulmonary hypertension. Estimated RVSP = 37 mmHg. (2) Diabetes Current Visit: No Status: Chronic Assessment and Plan: on sliding scale insulin adjust as per finger sticks A1c 6.4 was counseled on diet and exercise (3) Hyperlipidemia Current Visit: No Status: Chronic Assessment and Plan: continue statins lipid panel noted- counseled on diet (4) Hypertension Current Visit: No Status: Chronic Assessment and Plan: has elevated BP at times ill start her on lisinopril as she is also diabetic (5) DVT prophylaxis Current Visit: Yes Status: Acute Assessment and Plan: on heparin drip - Time Spent with Patient Total time spent is greater than 50% in coordination of care (as documented) at patient's floor/unit and/or counseling patient: Internal Medicine: Result - Labs CBC & Chem 7: 01/02/18 00:15 01/02/18 00:15 Labs: Short CBC 01/01/18 01/02/18 Range/Units 10:56 00:15 WBC 4.0 L 6.0 (4.3-11.1) K/mcL Hgb 11.8 11.2 L (11.5-15.4) g/dL Hct 36.2 33.5 L (35.3-44.9) % Plt Count 141 154 (140-400) K/mcL Neutrophils # 2.2 2.8 (1.6-8.9) K/mcL BMP 01/01/18 01/02/18 10:56 00:15 Sodium 137 135 L Potassium 4.0 3.6 Chloride 100 100 Carbon Dioxide 30 H 27 BUN 26 H 24 H Creatinine 0.90 1.05 Glucose 91 146 H Calcium 9.7 9.3 Cardiac Enzymes 01/01/18 01/01/18 01/02/18 Range/Units 10:56 16:50 00:15 Troponin I < 0.03 0.04 H* 0.05 H* (< 0.04) ng/mL - ABG Interpretation ABG results: PT/INR, D-dimer PT 11.3 Seconds (9.4-12.1) 01/01/18 10:56 - Impressions Impressions Chest X-Ray 01/01/18 10:46 IMPRESSION: No acute process. 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
--- NOTE | 2018-01-02 10:07 | Cardiology Consult Note ---
<Risa Canales - Last Filed: 01/02/18 10:12> Date of Encounter: 01/02/18 Time of Encounter: 09:00 Assessment and Plan (1) Chest pain Current Visit: Yes Status: Acute Patient presents with typical chest pain symptoms that have worsened since . Symptoms concerning for unstable angina. Troponins flat, adynamic. ECG with non-specific ST/T wave changes. Hx of CAD s/p PCI--last LHC 2016--PCI to mid-distal LCx and dLAD. Patent pLAD. TTE 2017 EF 65%. Reports has not recently followed with Cardiology. Continue heparin gtt, asa, statin, and BB. Discussed medical therapy vs. LHC; patient desires to proceed with C; alternatives, risks, and benefits discussed, she is agreeable to proceed. Check TTE. Will continue to follow. Qualifiers: Chest pain type: chest pain due to myocardial ischemia Ischemic chest pain type: unstable angina pectoris Qualified Code(s): I20.0 - Unstable angina (2) Hyperlipidemia Current Visit: No Status: Chronic LDL-188, patient reports intolerance to statins--cough. She has not tried decreased dose or every other day/weekly dosing. She is agreeable, will start. Emphasis placed on the importance of heart healthy diet. Qualifiers: Hyperlipidemia type: mixed hyperlipidemia Qualified Code(s): E78.2 - Mixed hyperlipidemia (3) CAD (coronary artery disease) Current Visit: Yes Status: Chronic Hx of STEMI with multivessel PCI in . EF preserved. Continue asa, BB. Will start statin--pt. agreeable to every other day dosing. Of note, reports cough with daily statin use. Patient reports has not recently followed with Cardiology. Qualifiers: Coronary Disease-Associated Artery/Lesion type: [place] artery [place] vs. transplanted heart: [place] heart Associated angina: with unstable angina Q ualified Code(s): I25.110 - Atherosclerotic heart disease of [place] coronary artery with unstable angina pectoris Discussion w patient/family: The assessment and plan as outlined above was discussed with the patient and/or family members who expressed understanding and agreement. All questions were answered. Thank you for involving us in the care of your patient. Please call with any questions. The patient will be discussed and reviewed with Dr. Buchanan; changes to be made accordingly. History of Present Illness Consult date: 01/02/18 Requesting physician: Elaina Corrigan Consult reason: Chest pain Chief complaint: Chest pain History of present illness: Ms. Jones is a 72 year old female with PMHx significant of HTN, HLD, obesity, CAD s/p PCI (STEMI 2017), and DMII who presented to the ED with complaints of chest discomfort that started on evening while watching TV. Pain is described as midsternal, non-radiating chest heaviness/pressure that worsens with physical exertion and improves with rest. Chest pain was increasing in frequency over the past 48 hours which prompted ED evaluation. Reports similar, however much more mild, symptoms as prior ID. Upon arrival to the ED initial troponin was negative; reports chest pain subsided with IV pain medication. ECG demonstrated non-specific ST/T wave abnormalities. Troponin 0.04, 0.05--Cardiology consulted for further recommendations given card roldan henderson. Prior CV testing: TTE 03/14/16: LVEF 65%, normal RV structure and function, mildly dilated LA, no significant valvular dysfunction, normal wall motion LHC 03/14/16: severe 3vCAD, EF 45%, previously stented pLAD patent; successful PTCA/MICHELLE in the pLCx and mLCx; mild to moderate non-obstructive CAD RCA LHC 03/17/16: successful PTCA/MICHELLE in the dLAD, patent stent in proximal and mid LCx. Past Med Surg Social Fam HX - Past Medical History Attestation: Yes The following information was validated with the patient. Source: patient Medical history: coronary artery disease, diabetes, GERD, hyperlipidemia, hypertension, myocardial infarction Psychiatric history: no psych history - Past Surgical History Surgical History: angioplasty/stent, appendectomy, , other, LE stent (s) Additional surgical history: ruptured appendix in childhood, 3 stents - Social History Smoking Status: Former smoker (quit 1968) Smokeless Tobacco Status: No Alcohol use: none Drug use: none - Family History Mother Living Status: Age at : 84 Cause of : cardiac Hx Family Cardiac Disorders: Yes (heart blockage, htn) Hx Family Endocrine Disorder: Yes (DM) Father Living Status: Cause of : ID Hx Family Cardiac Disorders: Yes (ID) Medications and Allergies Meloxicam 15 mg PO DAILY 03/14/16 [History] Metoprolol Tartrate [Lopressor] 50 mg PO BID 03/14/16 [History] Omeprazole [PriLOSEC] 40 mg PO DAILY 03/14/16 [History] Aspirin 81 mg PO DAILY #90 tab.chew 03/18/16 [Rx] Insulin Glargine,Hum.rec.anlog [Lantus Solostar] 8 unit SQ DAILY 01/01/18 [History] Trazodone HCl 200 mg PO HS 01/01/18 [History] Triamterene/HCTZ 75/50mg [Maxzide] 1 tab PO DAILY 01/01/18 [History] glipiZIDE [Glipizide] 10 mg PO BID 01/01/18 [History] metFORMIN [Glucophage] 1,000 mg PO BIDWM 01/01/18 [History] Allergy/AdvReac Type Severity Reaction Status Date / Time nitrofurantoin Allergy Hives Verified 03/14/16 06:22 [From Macrodantin] Penicillins Allergy Hives Verified 03/14/16 06:22 All Systems Review: The remainder of the systems were reviewed and are negative - Cardiovascular Cardiovascular: as per HPI Physical Examination Vital Signs, Last 4 Hours Temp Pulse Resp BP Pulse Ox 01/02/18 07:21 98.1 F 63 18 137/73 90 General: Conversant, No Apparent Distress HEENT: Atraumatic, Normocephaly, Mucus Membranes Moist Neck: No JVD, Normal carotid pulses Cardiac: Reg Rate and Rhythm, Normal S1 and S2, Other (systolc 2/6 murmur) Lungs: Normal Breath Sounds, No Wheeze, Rales, Rhonchi Neuro: Alert and responsive, No focal deficits noted Abdomen: Soft, Non-Tender, Other (BS active x4) Skin: No rashes noted on visualized skin Musculoskeletal: No Chest Wall Tenderness Extremities: No Clubbing, No Cyanosis, No Edema, Normal Pulses Results 01/02/18 00:15 01/02/18 00:15 Lab Results 01/01/18 01/01/18 01/01/18 10:56 10:56 10:56 WBC 4.0 L Hgb 11.8 Hct 36.2 Plt Count 141 INR 1.0 APTT 28.6 Sodium Potassium Chloride Carbon Dioxide BUN Creatinine Glucose Calcium Magnesium Troponin I B-Natriuretic Peptide 59 TSH 01/01/18 01/01/1801/02/18 10:56 16:50 00:15 WBC Hgb Hct Plt Count INR APTT Sodium 137 Potassium 4.0 Chloride 100 Carbon Dioxide 30 H BUN 26 H Creatinine 0.90 Glucose 91 Calcium 9.7 Magnesium Troponin I < 0.03 0.04 H* 0.05 H* B-Natriuretic Peptide TSH 01/02/18 01/02/18 00:15 00:15 WBC 6.0 Hgb 11.2 L Hct 33.5 L Plt Count 154 INR APTT Sodium 135 L Potassium 3.6 Chloride 100 Carbon Dioxide 27 BUN 24 H Creatinine 1.05 Glucose 146 H Calcium 9.3 Magnesium 1.3 L Troponin I B-Natriuretic Peptide TSH 4.776 Active Medications Acetaminophen (Tylenol) 650 mg PO Q6HR PRN PRN Reason: Pain Stop: 07/03/18 16:28 Last Admin: 01/02/18 08:43 Dose: 650 mg Aspirin (Aspirin) 81 mg PO DAILY ARIANA Stop: 07/04/18 09:01 Last Admin: 01/02/18 08:32 Dose: 81 mg Atorvastatin Calcium (Lipitor) 40 mg PO HS ARIANA Stop: 07/03/18 21:01 Last Admin: 01/01/18 21:17 Dose: Not Given Dextrose/Water (Dextrose 50% (Syg)) 25 ml IVP AD PRN PRN Reason: Hypoglycemia Stop: 07/03/18 13:40 Glucagon (Glucagen) 1 mg IM ONCE PRN PRN Reason: Hypoglycemia Stop: 07/03/18 13:40 Glucose (Gluctose) 15 gm PO ONCE PRN PRN Reason: Hypoglycemia Stop: 07/03/18 13:40 Glucose (Gluctose) 30 gm PO ONCE PRN PRN Reason: Hypoglycemia Stop: 07/03/18 13:40 Heparin Sodium (Porcine) (Heparin) 5,400 unit 70 unit/kg (5400 unit) IVP Q6HR PRN PRN Reason: SEE COMMENTS Stop: 07/03/18 17:41 Heparin Sodium (Porcine) (Heparin) 2,700 unit 35 unit/kg (2700 unit) IVP Q6H PRN PRN Reason: SEE COMMENTS Stop: 07/03/18 17:41 Dextrose (Dextrose 5%) 1,000 mls @ 100 mls/hr IVC .Q10H PRN PRN Reason: HYPOGLYCEMIA Stop: 07/03/18 13:40 Heparin Sodium/Dextrose (Heparin 25,000 Unit/500 Ml D5w) 25,000 unit in 500 mls @ 21.794 mls/hr IVC .[id number] [facility]; Protocol Stop: 07/03/18 17:46 Last Titration: 01/02/18 09:51 Dose: 10.94 unit/kg/hr, 17.031 mls/hr Insulin Detemir (Levemir) 8 unit SQ [facility] Stop: 07/03/18 21:01 Last Admin: 01/01/18 22:07 Dose: 8 unit Insulin Human Lispro (Humalog) 0 units SQ Q6HR [facility]; Protocol Stop: 07/03/18 18:01 Last Admin: 01/02/18 05:48 Dose: Not Given Lisinopril (Zestril) 2.5 mg PO DAILY [facility]; Protocol Stop: 07/04/18 09:01 Last Admin: 01/02/18 09:37 Dose: Not Given Metoprolol Tartrate (Lopressor) 50 mg PO BID [facility] Stop: 07/03/18 21:01 Last Admin: 01/02/18 09:44 Dose: 50 mg Naloxone HCl (Narcan) 0.4 mg IVP Q2MIN PRN PRN Reason: SEE COMMENTS Stop: 07/03/18 13:41 Nitroglycerin (Nitroglycerin) 0.4 mg SL Q5MIN PRN PRN Reason: Chest Pain Stop: 07/03/18 10:56 Last Admin: 01/01/18 16:21 Dose: 0.4 mg Omeprazole (Prilosec) 40 mg PO DAILY@0630 [facility] Stop: 07/04/18 06:31 Last Admin: 01/02/18 06:02 Dose: 40 mg Trazodone HCl (Trazodone) 200 mg PO [facility] Stop: 07/03/18 21:01 Last Admin: 01/01/18 21:17 Dose: 200 mg - Imaging and Cardiology Echo: report reviewed Cardiac cath: report reviewed Other Results: 12 hour tele: avg HR=62 SR. NO events noted. - EKG Interpretation EKG results cardiology: personally reviewed Consult Discharge Plan - Plan Referrals: Madai Guevara CNP [Primary Care Provider] - <Kaye Buchanan - Last Filed: 01/02/18 11:14> Date of Encounter: 01/02/18 - Attending Attestation I examined this patient and my medical decision-making was reviewed with the CANE BURNER. I agree with the documented findings, disposition and treatment plan as described. Ms. Jones is a 72-year-old female presenting with symptoms of chest pain which by description are typical. She describes exertional chest discomfort over the past few days and now is having resting discomfort at the bedside. Workup so far has included flat and adynamic troponin elevation. She had an ECG demonstrating nonspecific ST and T wave changes unremarkable for a new ischemic event. Echocardiogram demonstrated preserved LV systolic function without wall motion abnormality. At the bedside, the patient is alert and conversant, oriented 3 in no acute distress. She does describe some chest pressure. Vital signs reviewed. Patient hemodynamically stable. Labs reviewed, troponins noted, borderline renal dysfunction, abnormal lipids, normal Hgb and plt ECG reviewed demonstrating nonspecific ST and T-wave findings without acute ischemic changes. Impression: 1. Unstable angina: Patient reports having exertional chest pain symptoms over the past few days and has known CAD and prior PCI February 2016. The description of her symptoms are typical, describing chest pain with exertion and now with resting discomfort. Her troponins are flat and adynamic not strongly suggestive of an acute coronary syndrome. Her ECG is unremarkable and her echo demonstrates normal LV systolic function without new wall motion abnormalities. We did give the option to the patient of considering stress testing for an ischemic evaluation. However, due to concern for unstable angina, the patient elected to proceed with left heart catheterization. The details of the procedure including risks, benefits and alternatives including but not limited to renal failure, vascular complications, need for emergency surgery, stroke and even . The patient understood those risks and consented to proceed. 2. Dyslipidemia: Reports having a cough to prior statin use. Due to markedly abnormal lipids in the setting of known CAD, will consider alternative dosing strategy of statin therapy. Assessment and Plan Discussion w patient/family: The assessment and plan as outlined above was discussed with the patient and/or family members who expressed understanding and agreement. All questions were a nswered. Thank you for involving us in the care of your patient. Please call with any questions. History of Present Illness History of present illness: Ms. Jones is a 72 year old female All Systems Review: The remainder of the systems were reviewed and are negative Physical Examination Vital Signs, Last 4 Hours Temp Pulse Resp BP Pulse Ox 01/02/18 10:54 97.9 F 58 16 162/77 96 01/02/18 07:21 98.1 F 63 18 137/73 90 Results 01/02/18 00:15 01/02/18 00:15 Lab Results 01/01/18 01/01/18 01/01/18 10:56 10:56 10:56 WBC 4.0 L Hgb 11.8 Hct 36.2 Plt Count 141 INR 1.0 APTT 28.6 Sodium Potassium Chloride Carbon Dioxide BUN Creatinine Glucose Calcium Magnesium Troponin I B-Natriuretic Peptide 59 TSH 01/01/18 01/01/18 01/02/18 10:56 16:50 00:15 WBC Hgb Hct Plt Count INR APTT Sodium 137 Potassium 4.0 Chloride 100 Carbon Dioxide 30 H BUN 26 H Creatinine 0.90 Glucose 91 Calcium 9.7 Magnesium Troponin I < 0.03 0.04 H* 0.05 H* B-Natriuretic Peptide TSH 01/02/18 01/02/18 00:15 00:15 WBC 6.0 Hgb 11.2 L Hct 33.5 L Plt Count 154 INR APTT Sodium 135 L Potassium 3.6 Chloride 100 Carbon Dioxide 27 BUN 24 H Creatinine 1.05 Glucose 146 H Calcium 9.3 Magnesium 1.3 L Troponin I B-Natriuretic Peptide TSH 4.776
[2018-01-02] MEDS ORDERED: *HR* Heparin 10,000 UNIT/10 ML VIAL ONE (11:56)
[2018-01-02] MEDS ORDERED: Heparin 1,000 UNITS/500 mL 500 ML ONE (11:56)
[2018-01-02] MEDS ORDERED: ISOVUE-370 200 ML INFUS..BTL ONE (11:56)
[2018-01-02] MEDS ORDERED: Verapamil 5 MG/2 ML VIAL ONE (11:56)
[2018-01-02] MEDS ORDERED: 0.9 % Sodium Chloride 1,000 ML ONE ×2 (11:56→12:19)
[2018-01-02] MEDS ORDERED: Nitroglycerin 1,000 MCG/10 ML VIAL IV ONE (11:56)
[2018-01-02] MEDS ORDERED: *HR* FentaNYL (PF) 100 MCG/2 ML VIAL ONE (12:22)
[2018-01-02] MEDS ORDERED: *HR* Midazolam HCl 2 MG/2 ML VIAL ONE (12:22)
[2018-01-02] MEDS ORDERED: Tirofiban 12.5 MG/250ML 12.5 MG/250 ML BAG ONE (12:51)
--- NOTE | 2018-01-02 13:18 | Pre-Sedation Evaluation ---
Pre-sedation evaluation - Pre-sedation checklist Date of procedure: 01/02/18 Procedure: [facility] Recent Vitals: Last Vital Signs Temp 97.9 F 01/02/18 10:54 Pulse 58 01/02/18 10:54 Resp 16 01/02/18 10:54 BP 162/77 01/02/18 10:54 Pulse Ox 96 01/02/18 10:54 H&P (including ROS) documented in medical record: Yes Previous reaction to sedatives/anesthetics: No Dietary Status: NPO after Midnight Dentition: No loose teeth or bridges ASA Classification *see protocol: CLASS II-Mild systemic disease Plan of Care: Pt appropriate candidate for procedure/moderate/conscious sedation, Risks/benefits of procedure/sedation discussed w/ patient/family Cardiac Registry (Cardio Only) - Functional Capacity Functional Capacity: >=4 METS with symptoms - Clincal Frailty Scale Clinical Frailty Scale: Managing Well
[2018-01-02] MEDS ORDERED: Ondansetron 4 MG/2 ML VIAL IVP PRN (13:19)
[2018-01-02] MEDS ORDERED: Tirofiban 12.5 MG/250ML 12.5 MG/250 ML BAG IVC SCH (13:30)
--- NOTE | 2018-01-02 13:43 | Invasive Diagnostic Lab Proc ---
Name: Deann Jones Date of Study: 01/02/2018 Date: 1945 Ht: 66.1in Medical Record#: [id number] Age: 72 Wt: 172.62lb Gender: Female BSA: 1.88 Order #: [id number] BMI: 27.74 Physicians Procedure Physician: Golden Duque MD, FACC Referring MD: Madai Guevara, SOLO Referring MD: Staff Name Position Time In Julián Lentz RN Retail Analytics Manager 12:23 PM Shy Lassiter RN Monitor 12:24 PM Sites, Denise RT (R) Scrub 12:24 PM Indications Indication Non-Stemi Procedures Performed Procedure PRQ CARD MICHELLE STENT W/ANGIO 1 VSL CORONARY ARTERY ANGIO S&I Pre-Procedure Checklist Informed consent is complete signed and on chart. H&P is on chart. ID band is on and ID verified with patient. Patient NPO for procedure The procedure was described for the patient and questions were answered. Blood Pressure: 162/77 ECG is on chart. Rhythm: NSR Plan of Care Patient will tolerate the procedure without complications. Adequate level of comfort will be maintained. Hemodynamics will remain stable Patient will recover from procedure without complications. Respiratory function will be maintained. Cardiac rhythm will remain stable. Patient temperature will be maintained. Patient and/or family have verbalized understanding of the procedure. Patient Education Chief Complaint/Reason for Test: Cardiac Cath Developmental Category: Geriatric (65+ years) Developmentally Appropriate for Age: Yes Learning Barriers: None Education Needs: Procedure Education Method: Verbal Information Taught: Cardiac Cath Educational Evaluation: Able to repeat information Intravenous Access Time IV Size Location DC'd Fluid/Drip Rate Units RN 11:59 AM 20g 1 /" Patent On Arrival Lt Arm 0.9NaCl 25 ml/hr Julián Lentz RN Allergies nitrofurantoin Penicillins Vital Signs Time BP (mmHg) HR (bpm) O2 Sat. RR (bpm) LOC 12:00 PM 162 / 77 58 96 % 16 5 = Fully awake and oriented or at pre-proc level 12:24 PM / % 5 = Fully awake and oriented or at pre-proc level 12:25 PM / % 5 = Fully awake and oriented or at pre-proc level 12:27 PM / % 4 = Oriented but drowsy 12:45 PM / % 4 = Oriented but drowsy 12:25 PM 167 / 81 64 95 % 13 12:30 PM 145 / 76 61 96 % 18 12:35 PM 146 / 75 61 97 % 21 12:39 PM 123 / 65 65 93 % 16 12:44 PM 139 / 70 64 94 % 24 12:49 PM 147 / 74 63 95 % 23 12:55 PM 140 / 69 62 96 % 29 01:00 PM 150 / 71 65 97 % 45 01:05 PM 127 / 62 66 95 % 18 01:10 PM 129 / 63 65 97 % 13 Procedural Medications Time Medication Dose Units Method Given By 12:22 PM Versed 2 mg Intravenous Julián Lentz RN 12:22 PM Fentanyl 50 mcg Intravenous Julián Lentz RN 12:29 PM Oxygen 2 L/min nasal cannula Julián Lentz RN 12:33 PM Lidocaine 2% 0.5 ml Subcutaneous Golden Duque MD, [facility] 12:39 PM Nitroglycerin 200 mcg Intracoronary Golden Duque MD 12:48 PM Fentanyl 25 mcg Intravenous Julián Lentz RN 12:50 PM Heparin 1500 units Intravenous Julián Lentz RN 12:50 PM Aggrastat Bolus: 37.5 ml Intravenous Julián Lentz RN 12:51 PM Aggrastat 12.5mg/250ml 13.5 ml/hr Intravenous Julián Lentz RN 01:01 PM Nitroglycerin 150 mcg Intracoronary Golden Duque MD 01:08 PM Plavix 600 mg Orally Julián Lentz RN 12:26 PM Heparin 2000 units Nitroglycerin 200 mcg Verapamil 2.5 mg Intraarterial Golden Duque MD, [facility] ASA Classification: CLASS II- Mild systemic disease (i.e. well-controlled diabetes, hypertension, asthma, cigarette smoking) Dean Score Preprocedure Postprocedure Activity 2- Moves 4 extremities sustained head lift Activity Circulation 2- SBP +/= 20 points of pre-anesthetic level Circulation Consciousness 2- Awake and alert oriented x 3 Consciousness O2 Saturation 2- Able to maintain O2 satruation of 92% on room air O2 Saturation Respiratory 2- Able to deep breathe and cough well Respiratory Total Score 10 Total Score Contrast Agent: Isovue Diagnostic Contrast: 115 ml Total Contrast: 115 ml Fluoro Dose: 4096 mGy Procedure Log Time Note Enter By 12:17 PM Physician arrived 12:17 csmith 12:17 PM Meet and greet completed csmith 12:17 PM Sign in performed according to hospital policy. Informed consent was obtained. csmith 12:21 PM Time: 12:21LOC: 5 = Fully awake and oriented or at pre-proc level csmith 12: PM Pt arrived to director of laboratory operations 2 at 12:15 csmith 12: PM Julián Lentz RN Position: Retail Analytics Manager Time in: csmith : PM Shy Lassiter RN Position: Monitor Time in: [facility] 12: PM Sites, Denise RT (R) Position: Scrub Time in: [facility] 12: PM Patient charges- Angio tray pack, Navilyst 3mm J, Pulse Oximetry and ACIST tubing and transducer csmith 12: PM CathStat 12: PM Case Start 12: PM Vitals capture started with the following parameters, Patient=Adult, Interval=5 min, Initial Aysibcak=856 mmHg, Deflation Rate=5 mmHg, Cuff placed on Right Arm 12: PM Hair removed from procedure site in procedure lab using clippers. Right wrist & right grion prepped with Chloraprep by Shy Lassiter RN, then patient was draped. Skin intact. [facility] 12: PM Procedure start [facility] 12: PM Time: 12:24 Patient comfortable and pain free: Yes [facility] : PM Time: 12:24LOC: 5 = Fully awake and oriented or at pre-proc level csmith 12: PM HR=64 bpm, PGRX=466/81 mmhg, SpO2=95.0 %, Resp=13 B/min, Comment=nsr : PM Time: 12: Versed 2 mg Intravenous Given by Julián Lentz RN [facility] : PM Time: 12: Fentanyl 50 mcg Intravenous Given by Julián Lentz RN [facility] : PM Recorded ECG: HR=63 Condition=Condition 1 : PM Time: : Patient given 2000 units Heparin, 200 mcg Nitroglycerin, and 2.5 mg Verapamil Intraarterial by Golden Duque MD, [facility]. This is given to reduce risk of vessel spasm and thrombosis. [facility] : PM Time: 12: Patient comfortable and pain free: Yes [facility] : PM HR=61 bpm, BAMN=101/76 mmhg, SpO2=96.0 %, Resp=18 B/min, EtCO2=37 mmHg, Comment=nsr PM Time: : Oxygen on at 2 L/min per nasal cannula by Julián Lentz RN csmith 12:30 PM ASA Class CLASS II- Mild systemic disease (i.e. well-controlled diabetes, hypertension, asthma, cigarette smoking) csmith 12:33 PM Clinical Presentation: Non-STEMI csmith 12:33 PM Time out was performed according to hospital policy. Conscious sedation and anesthesia was achieved (see medication log with in this report above) csmith 12:34 PM Time: 12:33 0.5 ml Lidocaine 2% to right radial Subcutaneous Given by Golden Duque MD, [facility] csmith 12:34 PM Access obtained by percutaneous puncture. 6Fr 11cm Terumo Glidesheath sheath placed in right Radial artery. [id number] csmith 12:35 PM HR=61 bpm, GKAR=330/75 mmhg, SpO2=97.0 %, Resp=21 B/min, Comment=nsr 12:35 PM 5Fr Drake Radial catheter inserted over the wire [facility] csmith 12:36 PM Pressure channel 1 zeroed. 12:38 PM Pressure channel 1 zero failed. 12:38 PM RCA angiography performed in multiple views. csmith 12:38 PM Pressure channel 1 zeroed. 12:39 PM Time: 12:39 Nitroglycerin 200 mcg Intracoronary Given by Golden Duque MD csmith 12:39 PM Recorded Pressure: Ao, HR=64, Condition=Condition 1 (Aorta) Ao 102/62/83 12:39 PM HR=65 bpm, UHGX=978/65 mmhg, SpO2=93.0 %, Resp=16 B/min, Comment=nsr 12:40 PM Coronary Dominance: right csmith 12:40 PM Catheter removed csmith 12:40 PM 5Fr FL3.5 catheter inserted over the wire [id number] [facility] 12:40 PM Recorded Pressure: Ao, HR=67, Condition=Condition 1 (Aorta) Ao 102/65/83 12:41 PM Lesion found in Proximal RCA. Pre Stenosis: 30 Pre CAIO Flow: csmith 12:41 PM Lesion found in Mid RCA. Pre Stenosis: 40 Pre CAIO Flow: csmith 12:41 PM Lesion found in Right PDA. Pre Stenosis: 50 Pre CAIO Flow: csmith 12:42 PM Lesion found in RPAV. Pre Stenosis: 50 Pre CAIO Flow: csmith 12:44 PM HR=64 bpm, EBWA=749/70 mmhg, SpO2=94.0 %, Resp=24 B/min, Comment=nsr 12:45 PM Time: 12:27LOC: 4 = Oriented but drowsy csmith 12:45 PM Time: 12:27 Patient comfortable and pain free: Yes csmith 12:45 PM LCA angiography performed in multiple views. csmith 12:45 PM Recorded Pressure: Ao, HR=66, Condition=Condition 1 (Aorta) Ao 130/73/100 12:45 PM physician reviewing films csmith 12:46 PM Catheter removed csmith 12:47 PM 6Fr RBL 3.5 Convey guide catheter was used to cannulate the PCI vessel successfully. reused? No csmith 12:47 PM .014 Martinez 190cm guide wire across target lesion- successful. reused? No csmith 12:47 PM Inflation device was opened. csmith 12:48 PM Time: 12:48 Fentanyl 25 mcg Intravenous Given by Julián Lentz RN [facility] 12:49 PM Lesion found in 1st Diagonal. Pre Stenosis: 90 Pre CAIO Flow: csmith 12:49 PM Lesion found in Mid LAD. Pre Stenosis: 75 Pre CAIO Flow: 3: Complete and Brisk Flow/Perfusion csmith 12:49 PM Lesion found in 1st Marginal. Pre Stenosis: 90 Pre CAIO Flow: csmith 12:49 PM HR=63 bpm, JYUI=770/74 mmhg, SpO2=95.0 %, Resp=23 B/min, EtCO2=35 mmHg, Comment=nsr 12:50 PM Time: 12:50 Heparin 1500 units Intravenous Given by Julián Lentz RN csmith 12:51 PM Time: 12:50 Aggrastat Bolus: 37.5 ml Intravenous Given by Julián Lentz RN [facility] 12:52 PM Time: 12:51 Aggrastat 12.5mg/250ml 13.5 ml/hr Intravenous Given by Julián Lentz RN [employer] 12:53 PM Recorded Pressure: Ao, HR=61, Condition=Condition 1 (Aorta) Ao 131/58/88 12:54 PM 2.25mm x 20mm Synergy drug-eluting stent across target lesion- successful Lot #[id number] csmith 12:55 PM HR=62 bpm, TKMB=426/69 mmhg, SpO2=96.0 %, Resp=29 B/min, Comment=nsr 12:58 PM Stent deployed @ 14 yanni for 25 seconds csmith 01:00 PM HR=65 bpm, KJTN=871/71 mmhg, SpO2=97.0 %, Resp=45 B/min, Comment=nsr 01:00 PM Time: 12:45 Patient comfortable and pain free: Yes csmith 01:00 PM Time: 12:45LOC: 4 = Oriented but drowsy csmith 01:01 PM Time: 13:01 Nitroglycerin 150 mcg Intracoronary Given by Golden Duque MD csmith 01:01 PM Stent delivery system removed intact. csmith 01:03 PM 2.25mm x 20mm Synergy drug-eluting stent across target lesion- successful Lot #[id number] csmith 01:04 PM Recorded Pressure: Ao, HR=66, Condition=Condition 1 (Aorta) Ao 106/60/81 01:05 PM HR=66 bpm, MRVB=283/62 mmhg, SpO2=95.0 %, Resp=18 B/min, EtCO2=34 mmHg, Comment=nsr 01:05 PM Recorded Pressure: Ao, HR=67, Condition=Condition 1 (Aorta) Ao 111/62/84 01:06 PM Stent deployed @ 14 yanni for 20 seconds csmith 01:07 PM Stent delivery system removed intact. csmith 01:08 PM Guide wire removed intact. csmith 01:08 PM Guide catheter removed intact. csmith 01:09 PM Time: 13:08 Plavix 600 mg Orally Given by Julián Lentz RN csmith 01:10 PM HR=65 bpm, NTDC=299/63 mmhg, SpO2=97.0 %, Resp=13 B/min, Comment=nsr 01:12 PM Procedure completed at 13:12 01/02/2018 [facility] 01:12 PM Did you address CAIO flow and Dominance? Yes [facility] 01:12 PM Sign out completed: Radiation Dose 588 mGy, 4096 cGy/cm2 Fluoro Time: 8.6 Isovue 370 - 200ml contrast 115 ml given by Golden Duque MD, [facility]. Complications: None. 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 Cardiac Rehab Consult needed: YesConfirmed administered medications: Yes [facility] 01:13 PM Complaint: Pain; Pain Score: 9 (1-10); Pain Location: Chest; Relief Measure: Medication and stent placement; Response: 6 (1-10). csmith 01:13 PM Arterial sheath pulled, Vasc Band closure device used and was Successful S/N. csmith 01:13 PM 7 ml air in Vasc Band. csmith 01:14 PM Estimated Blood Loss: minimal csmith 01:14 PM Post ECG NSR csmith 01:14 PM Post Blood Pressure 129/63 csmith 01:14 PM 13:14 Post Pulses Rt Radial 1+ csmith 01:18 PM Information taught Cardiac Cath, PCI, and Vasc Band csmith 01:18 PM Education needs Plan of Care, Procedure, and Responsibilities of Patient in Care csmith 01:18 PM Learning barriers :None csmith 01:18 PM Education Methods Verbal csmith 01:18 PM Education evaluation Able to repeat information csmith 01:18 PM Site status No bleeding/hematoma - Rt Wrist as reported by Sites, Denise RT (R) at 13:18 csmith 01:18 PM Plavix, Effient or Brilinta given Yes csmith 01:18 PM Delay to floor No csmith 01:19 PM Family placed in consult room. csmith 01:19 PM Complications: None csmith 01:27 PM Mid/Distal Left Anterior Descending Coronary Artery and diagonal branches with 75% stenosis. If graft is supplying this area, 0 % stenosis csmith 01:27 PM Circumflex, Obtuse Marginal, Left Posterior Descending, and Left Posterolateral Coronary Arteries with 90 % stenosis. If graft is supplying this area, 0 % stenosis csmith 01:27 PM Right Coronary, Right Posterior Descending Arteries with Right Posterolateral and Acute Marginal branches with 50 % stenosis. If graft is supplying this area, 0 % stenosis csmith 01:28 PM Time: 13:13 Patient comfortable and pain free: Yes [facility] Complications Complication None None Hemodynamics Pressures Site Systolic/A Wave Diastolic/V Wave Mean AO 102 62 83 AO 102 65 83 AO 130 73 100 AO 131 58 88 AO 106 60 81 AO 111 62 84 Post Procedure Information Blood Pressure: 129/63 mmHg Rhythm: NSR Post procedural instructions were given Closure Device Time Device Success/Fail 01/02/2018 1:15:00 PM Mechanical Compression Successful Site Checks Time Location Status Staff Sheath In? Note 01:18 PM Rt Wrist No bleeding/hematoma Sites, Denise RT (R) Pulses Time Site Pre-Procedure Post-Procedure Note 01/02/2018 11:59:00 AM Bilateral DP 1+ 01/02/2018 11:59:00 AM Bilateral radial 2+ 1:14:00 PM Rt Radial 1+ Updated by Julián Lentz RN on 01/02/2018 1:31:48 PM electronically signed on 01/02/2018 1:33:48 PM with status of Final
[2018-01-02] MEDS: traZODone 50 MG TABLET PO SCH (21:00)
[2018-01-02] MEDS: Insulin DETEMIR 100 UNIT/ML X5UNITS SQ SCH (21:07)
[2018-01-02] MEDS: *HR* Heparin 5,000 UNIT/ML VIAL SQ SCH (21:07)
[2018-01-02] MEDS: Nitroglycerin 0.4 MG TAB.SUBL SL PRN ×2 (21:08→21:16)
[2018-01-02] MEDS: Cholestyramine 4 GM POWD.PACK PO SCH (21:49)
[2018-01-02] MEDS: *HR* HYDROcodone/Acet 5/325 mg TABLET PO PRN (21:50)
[2018-01-03 04:11] LABS: Hematocrit 33.4 % (35.3-44.9); Hemoglobin 10.9 g/dL (11.5-15.4); Mean Corpuscular HGB Conc 32.6 g/dL (31.6-35.5); Mean Corpuscular Hemoglobin 29.1 pg (28.0-33.3); Mean Corpuscular Volume 89.1 fL (83.0-100.0); Platelet Count 122 K/mcL (140-400); Red Blood Count 3.75 M/mcL (3.82-4.97); Red Cell Distribution Width 13.1 % (11.5-14.5)
[2018-01-03 04:30] LABS: BUN/Creatinine Ratio 20 (6-26); Blood Urea Nitrogen 16 mg/dL (8-23); Calcium 9.3 mg/dL (8.6-10.3); Carbon Dioxide 30 mEq/L (23-29); Chloride 102 mEq/L (98-107); Glucose 147 mg/dL (70-105); Osmolality,Calculated 288 (280-300); Potassium 3.6 mEq/L (3.5-5.1); Sodium 137 mEq/L (136-145); eGFR For Non-African Americans > 60 (> 60)
[2018-01-03] MEDS: *HR* Heparin 5,000 UNIT/ML VIAL SQ SCH ×3 (05:43→20:56)
[2018-01-03] MEDS: Insulin LISPRO 300 UNITS/3 ML VIAL SQ SCH ×4 (07:55→20:57)
[2018-01-03] MEDS: Cholestyramine 4 GM POWD.PACK PO SCH ×2 (08:20→15:29)
[2018-01-03] MEDS: Aspirin 81 MG TAB.CHEW PO SCH (09:22)
[2018-01-03] MEDS: amLODIPine 5 MG TABLET PO SCH (09:23)
--- NOTE | 2018-01-03 09:50 | Cardiology Progress Note ---
Date of Encounter: 01/03/18 Time of Encounter: 09:48 Assessment and Plan (1) Chest pain Current Visit: Yes Status: Acute Patient presented with typical chest pain symptoms that have worsened since . Symptoms concerning for unstable angina. Troponins flat, adynamic. ECG with non-specific ST/T wave changes. Pt reports mild "chest fullness" this AM, but much improved compared to prior to PCI. S/P [facility] yesterday, reported PCI with MICHELLE x 2 to mLAD. 90% OM not intervented on (medical management). Final report pending. TTE EF 60-65%, mild MR and TR. DAPT (ASA and Plavix) uninterrupted x 1 year. Pt verbalizes understanding. Continue BB. Pt refuses statin, states it caused a cough in the past. Add Imdur 30mg daily given remaining OM lesion. Right radial access site healing well. Moderate amount of ecchymosis. Bilateral radial pulses 2+ palpable and symmetrical. Cardiology signing off. Reconsult PRN. Qualifiers: Chest pain type: chest pain due to myocardial ischemia Ischemic chest pain type: unstable angina pectoris Qualified Code(s): I20.0 - Unstable angina (2) CAD (coronary artery disease) Current Visit: Yes Status: Chronic Hx of STEMI with multivessel PCI in . [facility] yesterday with 2 MICHELLE to mLAD. 90% OM lesion medical managemnt. EF preserved. Continue asa, Plavix, BB. Add Imdur. Attempted to start statin--pt initially agreeable to every other day dosing, but refused last night. Of note, reports cough with daily statin use. Qualifiers: Coronary Disease-Associated Artery/Lesion type: [place] artery [place] vs. transplanted heart: [place] heart Associated angina: with unstable angina Qualified Code(s): I25.110 - Atherosclerotic heart disease of [place] coronary artery with unstable angina pectoris Discussion w patient/family: The assessment and plan as outlined above was discussed with the patient and/or family members who expressed understanding and agreement. All questions were answered. Thank you for involving us in the care of your patient. Please call with any questions. I will discuss all the above with Dr. Buchanan and make changes as necessary. Subjective Principal diagnosis: Unstable angina, CAD Interval history: Pt reports mild "chest fullness" this AM, but much improved compared to prior to PCI. S/P [facility] yesterday, reported PCI with MICHELLE x 2 to mLAD. 90% OM not intervented on (medical management). TTE EF 60-65%, mild MR and TR. Objective Vital Signs, Last 4 Hours Temp Pulse Resp BP Pulse Ox 01/03/18 08:30 93 01/03/18 06:27 98.1 F 57 14 128/61 93 Vital Signs Temp Pulse Resp BP Pulse Ox 01/03/18 08:30 93 01/03/18 06:27 98.1 F 57 14 128/61 93 01/03/18 03:07 98.1 F 63 16 143/75 91 01/02/18 23:00 98.2 F 82 16 129/76 94 01/02/18 18:48 98.9 F 72 14 126/72 92 01/02/18 17:30 98.6 F 66 16 149/71 92 01/02/18 16:25 66 16 114/68 92 01/02/18 15:25 64 16 112/64 92 01/02/18 14:55 68 16 120/59 96 01/02/18 14:25 59 16 127/69 96 01/02/18 14:10 56 16 134/73 95 01/02/18 13:55 57 16 128/71 92 01/02/18 13:43 58 16 136/68 92 01/02/18 10:54 97.9 F 58 16 162/77 96 Intake and Output 01/02/18 01/03/18 01/03/18 23:59 07:59 15:59 Intake Total 250 / 250 300 / 300 Output Total 900 / 900 1450 / 1450 0 / 0 Balance -900 / -900 -1200 / -1200 300 / 300 Intake: IV Fluids 250 / 250 Aggrastat 12.5 MG/250 ML 12.5 250 / 250 mg In 250 ml @ 0.15 MCG/KG/MIN 14.094 mls/hr IVC .[id number] [facility] Rx#:[id number] Oral 300 / 300 Output: Urine 900 / 900 1450 / 1450 0 / 0 Other: Meal Breakfast Percent of Meal Consumed 100% # Bowel Movements 0 Weight 78 kg Blood Glucose* 140 129 Patient Weight 01/03/18 23:59 Weight 78 kg General: Conversant, No Apparent Distress HEENT: Atraumatic, Normocephaly, Mucus Membranes Moist Neck: No JVD, Normal carotid pulses Cardiac: Reg Rate and Rhythm, Normal S1 and S2, No Murmur Lungs: Normal Breath Sounds, No Wheeze, Rales, Rhonchi Neuro: Alert and responsive, No focal deficits noted Abdomen: Soft, Non-Tender Skin: Other (right radial access site moderate amount of ecchymisis.) Musculoskeletal: No Chest Wall Tenderness Extremities: No Clubbing, No Cyanosis, No Edema, Normal Pulses Results 01/03/18 03:29 01/03/18 03:29 Lab Results 01/03/18 01/03/18 03:29 03:29 WBC 3.4 L Hgb 10.9 L Hct 33.4 L Plt Count 122 L Sodium 137 Potassium 3.6 Chloride 102 Carbon Dioxide 30 H BUN 16 Creatinine 0.79 Glucose 147 H Calcium 9.3 Short CBC 01/03/18 Range/Units 03:29 WBC 3.4 L (4.3-11.1) K/mcL Hgb 10.9 L (11.5-15.4) g/dL Hct 33.4 L (35.3-44.9) % Plt Count 122 L (140-400) K/mcL BMP 01/03/18 Range/Units 03:29 Sodium 137 (136-145) mEq/L Potassium 3.6 (3.5-5.1) mEq/L Chloride 102 (98-107) mEq/L Carbon Dioxide 30 H (23-29) mEq/L BUN 16 (8-23) mg/dL Creatinine 0.79 (0.60-1.20) mg/dL Glucose 147 H (70-105) mg/dL Calcium 9.3 (8.6-10.3) mg/dL Impressions Echocardiogram 01/01/18 13:41 Impressions: LVEF 60-65%. LV diastolic dysfunction with elevated filling pressures. Normal right ventricular structure and function. Mild mitral regurgitation. Mild tricuspid regurgitation. No pulmonary hypertension. Left Ventricular Wall Motion: Rest Echo Findings All wall segments showed normal motion. Findings: Study Quality * Technically adequate exam. ECG Findings * Normal sinus rhythm. Left Ventricle * LVEF 60-65%. * Normal LV chamber size, wall thickness and function. * LV diastolic dysfunction with elevated filling pressures. Right Ventricle * Normal right ventricular structure and function. Left Atrium * Mildly dilated left atrium. Right Atrium * Normal right atrial size. Aortic Valve * No aortic regurgitation. * Aortic valve not well visualized. * No aortic stenosis. Mitral Valve * No mitral stenosis. * Mild mitral regurgitation. * Mildly thickened mitral valve leaflets. Tricuspid Valve * Normal tricuspid valve structure. * Mild tricuspid regurgitation. * Estimated RA pressure is 3 mmHg. * Estimated RVSP is 28 mmHg. * No pulmonary hypertension. Pulmonic Valve * Pulmonic valve is not well visualized. * No pulmonic stenosis. * No pulmonic regurgitation. Pulmonary Artery * Pulmonary artery not well visualized. Aorta * Normally sized aortic root. * Proximal ascending thoracic aorta not well visualized. Pericardium * There is no pericardial effusion present. Interatrial Septum * No evidence of PFO by color Doppler. IVC * Normal IVC dimensions and inspiratory collapse. Active Medications Acetaminophen (Tylenol) 650 mg PO Q6HR PRN PRN Reason: Pain Stop: 07/03/18 16:28 Last Admin: 01/02/18 08:43 Dose: 650 mg Hydrocodone Bitart/Acetaminophen ([place] 5-325 Mg) 1 tab PO Q6HR PRN PRN Reason: Moderate Pain Stop: 07/04/18 21:40 Last Admin: 01/02/18 21:50 Dose: 1 tab Amlodipine Besylate (Norvasc) 5 mg PO DAILY [facility]; Protocol Stop: 07/05/18 09:01 Last Admin: 01/03/18 09:23 Dose: 5 mg Aspirin (Aspirin) 81 mg PO DAILY [facility] Stop: 07/04/18 09:01 Last Admin: 01/03/18 09:22 Dose: 81 mg Atorvastatin Calcium (Lipitor) 20 mg PO QTUTHSA [facility] Stop: 07/04/18 21:01 Last Admin: 01/02/18 21:44 Dose: Not Given Cholestyramine Resin (Cholestyramine) 4 gm PO BIDAC [facility] Stop: 07/04/18 21:31 Last Admin: 01/03/18 08:20 Dose: 4 gm Clopidogrel Bisulfate (Plavix) 75 mg PO DAILY [facility] Stop: 07/05/18 09:01 Last Admin: 01/03/18 09:22 Dose: 75 mg Dextrose/Water (Dextrose 50% (Syg)) 25 ml IVP AD PRN PRN Reason: Hypoglycemia Stop: 07/03/18 13:40 Glucagon (Glucagen) 1 mg IM ONCE PRN PRN Reason: Hypoglycemia Stop: 07/03/18 13:40 Glucose (Gluctose) 15 gm PO ONCE PRN PRN Reason: Hypoglycemia Stop: 07/03/18 13:40 Glucose (Gluctose) 30 gm PO ONCE PRN PRN Reason: Hypoglycemia Stop: 07/03/18 13:40 Heparin Sodium (Porcine) (Heparin) 5,000 unit SQ Q8HCO [facility] Stop: 07/04/18 22:01 Last Admin: 01/03/18 05:43 Dose: 5,000 unit Dextrose (Dextrose 5%) 1,000 mls @ 100 mls/hr IVC .Q10H PRN PRN Reason: HYPOGLYCEMIA Stop: 07/03/18 13:40 Insulin Detemir (Levemir) 8 unit SQ HS [facility] Stop: 07/03/18 21:01 Last Admin: 01/02/18 21:07 Dose: 8 unit Insulin Human Lispro (Humalog) 0 units SQ TIDAC [facility]; Protocol Stop: 07/05/18 07:31 Last Admin: 01/03/18 07:55 Dose: Not Given Insulin Human Lispro (Humalog) 0 units SQ HS [facility]; Protocol Stop: 07/04/18 21:01 Last Admin: 01/02/18 21:44 Dose: Not Given Lisinopril (Zestril) 2.5 mg PO DAILY [facility]; Protocol Stop: 07/04/18 09:01 Last Admin: 01/03/18 09:23 Dose: 2.5 mg Metoprolol Tartrate (Lopressor) 50 mg PO BID [facility] Stop: 07/03/18 21:01 Last Admin: 01/03/18 09:23 Dose: 50 mg Naloxone HCl (Narcan) 0.4 mg IVP Q2MIN PRN PRN Reason: SEE COMMENTS Stop: 07/03/18 13:41 Nitroglycerin (Nitroglycerin) 0.4 mg SL Q5MIN PRN PRN Reason: Chest Pain Stop: 07/03/18 10:56 Last Admin: 01/02/18 21:16 Dose: 0.4 mg Omeprazole (Prilosec) 40 mg PO DAILY@0630 [facility] Stop: 07/04/18 06:31 Last Admin: 01/03/18 05:42 Dose: 40 mg Ondansetron HCl (Zofran) 4 mg IVP Q6HR PRN; Protocol PRN Reason: Nausea And Vomiting Stop: 07/04/18 13:20 Trazodone HCl (Trazodone) 200 mg PO HS [facility] Stop: 07/03/18 21:01 Last Admin: 01/02/18 21:00 Dose: 200 mg - Imaging and Cardiology Echo: report reviewed - EKG Interpretation EKG results cardiology: other (12 hr tele AVG HR 61, SR, no significant pauses or arrhythmias) Consult Discharge Plan - Plan Referrals: Ismael,Madai Dominique ESCROW CLOSER [Primary Care Provider] -
[2018-01-03] MEDS: Isosorbide MONOnitrate (24 HR) 30 MG TAB.ER.24H PO SCH (11:05)
[2018-01-03] MEDS: *HR* HYDROcodone/Acet 5/325 mg TABLET PO PRN ×2 (12:29→18:18)
[2018-01-03] MEDS: Acetaminophen 325 MG TABLET PO PRN (15:29)
--- NOTE | 2018-01-03 17:56 | Internal Med Progress Note ---
Hospitalist Progress Note - Encounter Date of Encounter: 01/03/18 Time of Encounter: 16:30 - Subjective Interval History: Mrs. Jones is a 72-year-old female patient who was admitted for typical chest pain symptoms, that were concerning for unstable angina. Her troponins were adynamic and flat. Her ECG showed nonspecific ST and T-wave changes. She curr ently underwent LHC yesterday with reported PCI with MICHELLE 2 in the mid LAD with a 90% OM, which was not intervention it on and on medical management. Her TTE EF was 60-65% with mild MR and TR She was advised to continue aspirin and Plavix uninterrupted 1 year to continue on her beta blockers, she did refuse statin as she does take powder sequestrant Questran to lower her total cholesterol and she was to add Imdur 30 mg daily. Today patient is examined and test are reviewed at the [facility]. She does have complaint of a severe frontal throbbing migraine type headache, that tylenol has ineffective relieving. Review of vital signs his blood pressure is stable at 119/64 SPO2 is 93% on room air pulse is 62 and she is afebrile at 97.4 She has ecchymosis and mild hematoma at the right radial puncture site for the LHC. Without signs and symptoms of active bleed or infection. We will continue to monitor this patient overnight due to the enlarging hematoma of the right wrist borderlines have been drawn if they fail to continue to enlarge and she remains asymptomatic she may be discharged in the a.m. - Exam Vitals: Temp Pulse Resp BP Pulse Ox 97.4 F L 62 16 119/64 93 01/03/18 15:16 01/03/18 15:16 01/03/18 15:16 01/03/18 15:16 01/03/18 15:16 Exam: stable - Assessment and Plan (1) Diabetes Current Visit: No Status: Chronic Assessment and Plan: Patient has long-term history of type 2 diabetes with insulin dependence glucose today is 147 We will continue with her insulin and medication regimen Patient states that currently she is in the donut hole for her Medicare and the next 2 months she finds it difficult to afford her medications as she must now pay for her insulin and her cholesterol medications. We did find $4 list for some of her medications pharmacy services director was contacted however they did not have any resources for this patient for medication relief for 4 offerings on obtaining hearing aids for her as she is severely hard of hearing. (2) Hypertension Current Visit: No Status: Chronic Assessment and Plan: Normal values in stable, (3) Hyperlipidemia Current Visit: No Status: Chronic Assessment and Plan: Patient has a long history of CAD, with previous stenting, in the mid LAD she refuses statins at this time she will continue with her powder hypercholesterolemia. (4) DVT prophylaxis Current Visit: Yes Status: Acute Assessment and Plan: We will continue per protocol, she is to continue with her and daily aspirin (5) NSTEMI (non-ST elevated myocardial infarction) Current Visit: Yes Status: Acute Assessment and Plan: LHC was performed no mechanical intervention was completed as she did have mid LAD stenting 2 in her past history with a 90% occlusion superior to the previous stenting medical management was recommended - Time Spent with Patient Total time spent is greater than 50% in coordination of care (as documented) at patient's floor/unit and/or counseling patient: less than 15 minutes Plan of Care Discussed with: patient Internal Medicine: Result - Labs CBC & Chem 7: 01/03/18 03:29 01/03/18 03:29 Labs: Short CBC 01/03/18 Range/Units 03:29 WBC 3.4 L (4.3-11.1) K/mcL Hgb 10.9 L (11.5-15.4) g/dL Hct 33.4 L (35.3-44.9) % Plt Count 122 L (140-400) K/mcL BMP 01/03/18 03:29 Sodium 137 Potassium 3.6 Chloride 102 Carbon Dioxide 30 H BUN 16 Creatinine 0.79 Glucose 147 H Calcium 9.3 - ABG Interpretation ABG results: PT/INR, D-dimer PT 11.3 Seconds (9.4-12.1) 01/01/18 10:56 Consult Discharge Plan - Plan Referrals: Madai Guevara ENGINE PILOT [Primary Care Provider] - (1) Diabetes Qualifiers: Diabetes mellitus type: type 2 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
[2018-01-03] MEDS: traZODone 50 MG TABLET PO SCH (20:56)
[2018-01-03] MEDS: Insulin DETEMIR 100 UNIT/ML X5UNITS SQ SCH (20:57)
[2018-01-04] MEDS: *HR* HYDROcodone/Acet 5/325 mg TABLET PO PRN (00:27)
[2018-01-04] MEDS: *HR* Heparin 5,000 UNIT/ML VIAL SQ SCH ×2 (05:33→14:26)
[2018-01-04] MEDS: Insulin LISPRO 300 UNITS/3 ML VIAL SQ SCH ×2 (08:41→12:33)
[2018-01-04] MEDS: Isosorbide MONOnitrate (24 HR) 30 MG TAB.ER.24H PO SCH (08:47)
[2018-01-04] MEDS: Cholestyramine 4 GM POWD.PACK PO SCH (08:47)
[2018-01-04] MEDS: amLODIPine 5 MG TABLET PO SCH (08:48)
[2018-01-04] MEDS: Aspirin 81 MG TAB.CHEW PO SCH (08:48)
[2018-01-04 10:43] VITALS: BP 102/54
[2018-01-04] MEDS: Acetaminophen 325 MG TABLET PO PRN (11:35)
--- NOTE | 2018-01-04 13:10 | Discharge Summary ---
- NOTES TO OUTPATIENT PROVIDER Notes to Outpatient Provider: Presented with typical chest pain symptoms concerning for unstable angina was seen by cardiology and underwent LHC with MICHELLE times x2 to m LAD-will require DAPT (aspirin and Plavix) continue beta leonela patient refusing statin-Imdur added 30 mg daily she did have some ecchymosis to right radial access site Orders not resulted at time of discharge: Pending orders 01/01/18 13:40 ECG 12 lead ECG [ECG] Stat 01/02/18 10:25 CL Cardiac Catheterization [CL] Routine 01/02/18 13:18 ECG 12 lead ECG [ECG] Stat 01/04/18 12:06 CBC [Complete Blood Count] [HEME] Stat Date of Encounter: 01/04/18 Time of Encounter: 13:10 - Discharge Diagnosis (1) Diabetes Priority: Secondary Status: Chronic Qualifiers: Diabetes mellitus type: type 2 Diabetes mellitus fdc insulin use: with manager long term care use Diabetes mellitus complication status: without complication Qualified Code(s): E11.9 - Type 2 diabetes mellitus without complications; 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 Jones is a 72 year old female past medical history significant for hypertension hyperlipidemia obesity CAD status post PCI "STEMI 2016" and diabetes type 2 presented to [facility] ED with complaints of chest discomfort started at rest. Initial troponins were negative-NTB flatten adynamic EKG did show specific ST-T wave abnormalities cardiology was consulted and underwent LHC 01/02/2018 with PCI MICHELLE 2 to an LAD. 90% OM not intervened "medical managem ent" TTE EF 6065% and mild MR and TR she will be on.uninterrupted 1 year continue with beta leonela she is refusing a statin because this caused cough in the past Imdur was added daily given OM lesion right radial access site did have some moderate amount of ecchymosis and she was monitored overnight for any signs symptoms of bleeding her hemoglobin had remained stable with no increase in hematoma. She is hemodynamically stable at this time and ready for discharge Discharge discussed with: patient - Time Spent with Patient Total time spent providing and/or coordinating discharge services: - Discharge Medications Prescriptions: Nitroglycerin 0.4 mg SL Q5MIN PRN #30 tab.subl PRN Reason: Chest Pain amLODIPine [Norvasc] 5 mg PO DAILY #30 tablet Cholestyramine 4 gm PO BIDAC #60 powd.pack Clopidogrel [Plavix] 75 mg PO DAILY #30 tablet Insulin Glargine,Hum.rec.anlog [Lantus Solostar] 8 unit SQ DAILY #5 insuln.pen Isosorbide MONOnitrate (24 HR) [Imdur] 30 mg PO DAILY #30 tab.er.24h Home Medications: Meloxicam 15 mg PO DAILY 03/14/16 [History] Omeprazole [PriLOSEC] 40 mg PO DAILY 03/14/16 [History] Aspirin 81 mg PO DAILY #90 tab.chew 03/18/16 [Rx] Trazodone HCl 200 mg PO HS 01/01/18 [History] glipiZIDE [Glipizide] 10 mg PO BID 01/01/18 [History] metFORMIN [Glucophage] 1,000 mg PO BIDWM 01/01/18 [History] Cholestyramine 4 gm PO BIDAC #60 powd.pack 01/04/18 [Rx] Clopidogrel [Plavix] 75 mg PO DAILY #30 tablet 01/04/18 [Rx] Insulin Glargine,Hum.rec.anlog [Lantus Solostar] 8 unit SQ DAILY #5 insuln.pen 01/04/18 [Rx] Isosorbide MONOnitrate (24 HR) [Imdur] 30 mg PO DAILY #30 tab.er.24h 01/04/18 [Rx] Metoprolol Tartrate [Lopressor] 50 mg PO BID #0 01/04/18 [Rx] Nitroglycerin 0.4 mg SL Q5MIN PRN #30 tab.subl 01/04/18 [Rx] amLODIPine [Norvasc] 5 mg PO DAILY #30 tablet 01/04/18 [Rx] Allergies/Adverse Reactions: Allergy/AdvReac Type Severity Reaction Status Date / Time nitrofurantoin Allergy Hives Verified 03/14/16 06:22 [From Macrodantin] Penicillins Allergy Hives Verified 03/14/16 06:22 Date of admission: 01/01/18 13:09 Primary care physician: Madai Guevara CNP Consults: 01/01/18 18:56 Consult to Cardiology [CONS] Routine Comment: Consulting Provider: Cheryle Lema Reason for Consult: elevated troponin, Chest pain Call Completed: No 01/02/18 13:18 Consult to Cardiac Rehabilitation-Phase1 [CONS] Routine Comment: Reason for Consult: post op PCI Call Completed: Yes 01/03/18 09:06 Consult to Primary Health Organisation Manager [CONS] Routine Reason for SW Consult: financial problems causing noncompliance with medications and inability to obtain hearing aids Discharging clinician: Ruth Pompa Anticipated date of discharge: 01/04/18 - Constitutional Vitals: Temp Pulse Resp BP Pulse Ox 97.6 F 54 14 102/54 94 01/04/18 10:40 01/04/18 10:40 01/04/18 10:40 01/04/18 10:40 01/04/18 10:40 General appearance: Present: A&O X 3 Exam: . - Head Head exam: Present: atraumatic, normocephalic - Eye Eye exam: Present: PERRL, conjuntiva pink, sclera anicteric Pupils: Present: PERRL - Neck Neck exam general surgery: Present: supple, trachea midline. Absent: lymphadenopathy - Respiratory Respiratory exam: Present: CTAB. Absent: accessory muscle use, rales, rhonchi, wheezes - Cardiovascular Cardiovascular exam: Present: RRR, +S1, +S2. Absent: diastolic murmur, gallop, rubs, systolic murmur - GI/Abdominal GI/Abdominal exam: Present: normal bowel sounds, soft, no peritoneal signs. Absent: distended, tenderness - Extremities Exam Extremities exam: Present: warm, radial pulses palpable and symmetrical. Absent: calf tenderness, cyanotic, pedal edema - Neurological Exam Neurological exam: Present: CN II-XII intact, oriented X3, no focal deficits. Absent: pronater drift, facial droop, speech deficit - Skin Skin exam: Present: dry, intact - Patient Status Disposition: Home, Self-Care Condition: Good Functional capacity at discharge: independent ambulation Overall status at discharge: patient is back to baseline - Discharge Instructions Instructions: Myocardial Infarction (DC), Chest Pain (DC) Follow Up With: Madai Guevara CNP [Primary Care Provider] - Forms: ED Satisfaction Letter - Diet and Activity Activity: increase activity as tolerated Diet: diabetic diet, low fat, low cholesterol, low salt diet
[2018-01-04 13:13] LABS: Basophils % 0.5 %; Eosinophils # 0.2 K/mcL (0.0-0.6); Eosinophils % 4.8 %; Hematocrit 33.2 % (35.3-44.9); Hemoglobin 10.7 g/dL (11.5-15.4); Immature Granulocytes % 0.5 % (0-4); Lymphocytes # 1.4 K/mcL (0.6-4.6); Lymphocytes % 36.2 %; Mean Corpuscular HGB Conc 32.2 g/dL (31.6-35.5); Mean Corpuscular Hemoglobin 29.1 pg (28.0-33.3); Mean Corpuscular Volume 90.2 fL (83.0-100.0); Mean Platelet Volume 9.3 fL (9.4-12.4); Monocytes # 0.4 K/mcL (0.0-1.3); Monocytes % 9.2 %; Neutrophils # 1.9 K/mcL (1.6-8.9); Platelet Count 134 K/mcL (140-400); Red Blood Count 3.68 M/mcL (3.82-4.97); Red Cell Distribution Width 13.1 % (11.5-14.5); Segmented Neutrophils % 48.8 %
[2018-01-04] MEDS ORDERED: 0.9 % Sodium Chloride 1,000 ML IVC SCH (18:00)
--- NOTE | 2018-01-05 19:54 | Electrocardiograph Report ---
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
--- NOTE | 2018-01-05 20:43 | Electrocardiograph Report ---
[address] [address] Test Date: 2018-01-01 Pat Name: Deann Jones Department: 113 Room: 3B Gender: F It Network Architect: : 1945 Requested By: Elaina Corrigan Order Number: [id number] Reading MD: Zayda Cardoso Measurements Intervals [place] Rate: 73 P: 40 CO: 194 QRS: -45 QRSD: 96 T: 107 QT: 404 QTc: 429 Interpretive Statements SINUS RHYTHM LEFT AXIS DEVATION NONSPECIFIC T-WAVE ABNORMALITY Electronically Signed On 01-05-2018 20:41:14 EST by Zayda Cardoso
--- NOTE | 2018-01-05 22:35 | Electrocardiograph Report ---
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
== END 2018-01-04 15:25 | disposition home or self-care (01) ==
LOC: EMEROOARM 09:58 → 3BNU 09:58
PROVIDERS: ADMIT Internal Medicine; ATTEND Internal Medicine

== ENCOUNTER 2018-01-11 00:14 | Observation (INO) ==
[2018-01-11] MEDS ORDERED: Aspirin 325 MG TABLET PO ONE (00:34)
--- NOTE | 2018-01-11 00:37 | Emergency Department Note ---
Addendum entered and electronically signed by Randy Westfall DO 01/11/18 01:59: Discussed case with Dr. Covarrubias. Recommended starting heparin drip at this time. This has been ordered. Original Note: Disposition Clinical Impression: Chest pain Qualifiers: Chest pain type: chest pain due to myocardial ischemia Ischemic chest pain type: unstable angina pectoris Qualified Code(s): I20.0 - Unstable angina Disposition: Admitted As Inpatient Condition: Good Time of Disposition: 01:52 Chest Pain HPI - General Chief Complaint: ED Chest Pain Stated Complaint: states I think i'm having a heart attack Time Seen by Provider: 01/11/18 00:27 Source: patient Mode of arrival: ambulatory Limitations: no limitations Vital Signs Reviewed: Yes Nursing Notes Reviewed: Yes - History of Present Illness HPI Narrative: Patient is a 72-year-old female with past medical history of NE, CAD, stent placement 2 a [address] Duque, diabetes, hypertension, hyperlipidemia. Presents today due to chest discomfort. Patient states that she was discharged in the past week. She says that she was still having some mild chest discomfort with exertion once she got home. She says that she has been having intermittent chest discomfort, worsening with exertion, mainly substernal with radiation to her back. She states that the intensity waxes and wanes. She also has some nausea but denies any vomiting. Denies any sweating. She also admits to associated shortness of breath. She states that she is presently taking aspirin but is out of that currently and has not taken it today. She denies taking any other blood thinners. She is currently concerned that she may be having another heart attack. Severity scale (1-10): 10 - Related Data Home Medications Medication Instructions Recorded Confirmed RX: Meloxicam 15 mg PO DAILY 03/14/16 01/01/18 RX: Omeprazole [PriLOSEC] 40 mg PO DAILY 03/14/16 01/01/18 RX: Trazodone HCl 200 mg PO HS 01/01/18 01/01/18 RX: glipiZIDE [Glipizide] 10 mg PO BID 01/01/18 01/01/18 RX: metFORMIN [Glucophage] 1,000 mg PO BIDWM 01/01/18 01/01/18 Previous Rx's Medication Instructions Recorded RX: Aspirin 81 mg PO DAILY #90 tab.chew 03/18/16 RX: Cholestyramine 4 gm PO BIDAC #60 powd.pack 01/04/18 RX: Clopidogrel [Plavix] 75 mg PO DAILY #30 tablet 01/04/18 RX: Insulin Glargine,Hum.rec.anlog 8 unit SQ DAILY #5 insuln.pen 01/04/18 [Lantus Solostar] RX: Isosorbide MONOnitrate (24 HR) 30 mg PO DAILY #30 tab.er.24h 01/04/18 [Imdur] RX: Metoprolol Tartrate [Lopressor] 50 mg PO BID #0 01/04/18 RX: Nitroglycerin 0.4 mg SL Q5MIN PRN #30 tab.subl 01/04/18 RX: amLODIPine [Norvasc] 5 mg PO DAILY #30 tablet 01/04/18 Allergies Allergy/AdvReac Type Severity Reaction Status Date / Time nitrofurantoin Allergy Hives Verified 03/14/16 06:22 [From Macrodantin] Penicillins Allergy Hives Verified 03/14/16 06:22 All systems ED: reviewed and negative except as stated. Constitutional: Denies: fever Cardiovascular: Reports: chest pain Respiratory: Reports: dyspnea Gastrointestinal: Reports: nausea. Denies: abdominal pain, vomiting, diarrhea Genitourinary: Denies: urgency, dysuria Integumentary: Denies: rash Neurological: Denies: headache, weakness, numbness, paresthesias Chest Pain PMH - Past Medical History Medical history: Reports: coronary artery disease, diabetes, GERD, hyperlipidemia, hypertension, myocardial infarction Surgical history: Reports: angioplasty/stent, appendectomy, , other, LE stent (s) Psychiatric history: Reports: no psych history INSTRUCTIONAL DESIGN TECHNOLOGIST history: Reports: no INSTRUCTIONAL DESIGN TECHNOLOGIST history - Social History Smoking Status: Former smoker Alcohol use: Reports: none Drug use: Reports: none Physical Exam - General Limitations: no limitations General appearance: alert, in no apparent distress - Head Head exam: atraumatic, normocephalic, normal inspection - Eye Eye exam: Present: normal appearance, PERRL, EOMI - ENT ENT exam: normal exam, normal oropharynx, mucous membranes moist - Neck Neck exam: Present: normal inspection, full ROM, trachea midline - Chest Chest inspection: Present: normal inspection, symmetric chest wall rise - Respiratory Respiratory exam: Present: normal lung sounds bilaterally - Cardiovascular Cardiovascular exam: Present: regular rate, normal rhythm, normal heart sounds - Abdominal Exam Abdominal exam: Present: soft, Non-Tender. Absent: tenderness, distention, guarding, rebound, rigidity - Extremities Exam Extremities exam: Present: normal inspection, full ROM. Absent: tenderness, pedal edema - Neurological Exam Neurological exam: Present: alert, oriented X3 - Psychiatric Psychiatric exam: Present: normal affect, normal mood - Skin Skin exam: Present: warm, dry, intact, normal color Course Course Narrative: Patient hypertensive, otherwise, the rest of vitals are stable. Physical exam fairly benign. She does have a history of recent stent placement. We will obtain EKG, chest x-ray, troponin. We will give the patient aspirin and nitroglycerin to see if we can get her pain more controlled at this time. We will repeat EKG in 15 minutes. Noting states that the patient had a heart cat heter on 01/02/18 with stent placement 2 to the LAD. She was also sent home with instructions to take aspirin and Plavix the patient states that she has not been taking her aspirin. 01:41 troponin negative. Repeat EKG shows no acute ST changes. Chest x-ray negative for any acute cardio pulmonary process. No major lab abnormality. Chest pain has went from a 10 out of 10 down to a 6 out of 10 after 2 nitroglycerin. We will start nitro drip and give fentanyl. We will proceed with admission. With no EKG changes and no elevated troponin level, will not start heparin at this time. We will place consult to cardiology. Chest X-Ray 01/11/18 00:34 IMPRESSION: 1. No active pulmonary disease. D/ / Marcelo Jensen MD / Marcelo Jensen MD Interpreting Provider: Marcelo Jensen MD Vital Signs Temperature 98.3 F 01/11/18 00:20 Pulse Rate 83 01/11/18 00:20 Respiratory Rate 18 01/11/18 00:20 Blood Pressure 180/91 01/11/18 00:20 O2 Sat by Pulse Oximetry 98 01/11/18 00:20 Temperature 98.3 F 01/11/18 00:20 Pulse Rate 75 01/11/18 01:22 Respiratory Rate 18 01/11/18 01:22 Blood Pressure 125/67 01/11/18 01:22 O2 Sat by Pulse Oximetry 93 01/11/18 01:22 Oxygen Delivery Oxygen Delivery Room Air Chest Pain - MDM Narrative Medical decision making narrative: Patient hypertensive, otherwise, the rest of vitals are stable. Physical exam fairly benign. She does have a history of recent stent placement. We will obtain EKG, chest x-ray, troponin. We will give the patient aspirin and nitroglycerin to see if we can get her pain more controlled at this time. We will repeat EKG in 15 minutes. Noting states that the patient had a heart catheter on 01/02/18 with stent placement 2 to the LAD. She was also sent home with instructions to take aspirin and Plavix the patient states that she has not been taking her aspirin. 01:41 troponin negative. Repeat EKG shows no acute ST changes. Chest x-ray negative for any acute cardio pulmonary process. No major lab abnormality. Chest pain has went from a 10 out of 10 down to a 6 out of 10 after 2 nitroglycerin. We will start nitro drip and give fentanyl. We will proceed with admission. With no EKG changes and no elevated troponin level, will not start heparin at this time. We will place consult to cardiology. - Medical Records Medical records reviewed: Yes I reviewed the patient's medical records. - Lab Data Lab results reviewed: Yes I reviewed the patient's lab results. Result diagrams: 01/11/18 00:32 01/11/18 00:32 Lab Results 01/11/18 01/11/18 01/11/18 Range/Units 00:32 00:32 00:32 WBC 5.2 (4.3-11.1) K/mcL RBC 4.16 (3.82-4.97) M/mcL Hgb 12.2 D (11.5-15.4) g/dL Hct 37.8 (35.3-44.9) % MCV 90.9 (83.0-100.0) fL MCH 29.3 (28.0-33.3) pg MCHC 32.3 (31.6-35.5) g/dL RDW 13.3 (11.5-14.5) % Plt Count 175 (140-400) K/mcL MPV 8.9 L (9.4-12.4) fL Immature Gran % 0.4 (0-4) % Seg Neutrophils % 54.4 % Lymphocytes % 33.9 % Monocytes % 7.1 % Eosinophils % 3.6 % Basophils % 0.6 % Neutrophils # 2.8 (1.6-8.9) K/mcL Lymphocytes # 1.8 (0.6-4.6) K/mcL Monocytes # 0.4 (0.0-1.3) K/mcL Eosinophils # 0.2 (0.0-0.6) K/mcL Basophils # 0.0 (0.0-0.2) K/mcL PT 10.9 (9.4-12.1) Seconds INR 1.0 APTT 29.5 (26.0-36.0) Seconds Sodium 136 (136-145) mEq/L Potassium 3.9 (3.5-5.1) mEq/L Chloride 101 (98-107) mEq/L Carbon Dioxide 24 (23-29) mEq/L BUN 29 H (8-23) mg/dL Creatinine 0.89 (0.60-1.20) mg/dL Est GFR ( Amer) > 60 (> 60) Est GFR (Non-Af Amer) > 60 (> 60) BUN/Creatinine Ratio 33 H (6-26) Glucose 120 H (70-105) mg/dL Calculated Osmolality 289 (280-300) Calcium 9.3 (8.6-10.3) mg/dL Troponin I < 0.03 (< 0.04) ng/mL - Radiology Data Radiology results reviewed: Yes I reviewed the patient's radiology results. - EKG Data EKG attestation: Yes I reviewed and interpreted this EKG. EKG results narrative: 01/11/2018 at 00:27. Sinus rhythm. Rate 75. NM 104. QRS 11. QTC 4 and 49. Left axis deviation. No acute ST elevation or depression. T-wave inversion in aVL that was present on old EKG. EKG #2 01/11/2018 at 01:01. No assess rhythm. Rate 75. NM 200. QRS 99. QTc 447. Left axis deviation. No acute ST elevation or depression. Heart Score - Score History: Moderately Suspicious EKG: Non Specific repolarisation Disturbance Age: Greater than 65 Risk Factors: Equal/Greater than 3 risk factor or history of atherosclerotic disease Troponin: Less than normal limit HEART Score Total: 6 S.B.A.R. - S.Demetrio.ASarah Beth Situation: Demographics, MOA Background: Presenting Complaint, Relevant PMH, Meds, & Allergies Assessment: Vital Signs, Course and respsone to treatment, Exam Concerns, Patient/Family Expectation, Pertinant Lab Results Recommendation: Barrier(s) to disposition, Recommendation based on pending st udies, treatments, or consults S.B.ASarah Beth Report Given to: Dr. Adrián Gibson Repor Time: 01:52 Attestation Statement - Attestation Attestation: Resident Attestation: I examined this patient and my medical decision making was reviewed with the Resident Physician. I agree with the documented findings, disposition and treatment plan as described except to the extent set forth below . We independently had [id number] contact with the patient. Patient with recent cardiac catheter. Stents placed. Patient states that she was offered stents versus medical management and opted for stent placement. Has not been taking aspirin the last couple of days secondary to her being out of medication. The patient is describing chest pain in the center of her chest. Described as a tight squeezing sensation that goes to the right arm. Better with nitroglycerin. Patient will be admitted for further chest pain evaluation and cardiology consult. Aspirin given. Heparin has been ordered.
[2018-01-11 00:46] LABS: Basophils % 0.6 %; Eosinophils # 0.2 K/mcL (0.0-0.6); Eosinophils % 3.6 %; Hematocrit 37.8 % (35.3-44.9); Hemoglobin 12.2 g/dL (11.5-15.4); Immature Granulocytes % 0.4 % (0-4); Lymphocytes # 1.8 K/mcL (0.6-4.6); Lymphocytes % 33.9 %; Mean Corpuscular HGB Conc 32.3 g/dL (31.6-35.5); Mean Corpuscular Hemoglobin 29.3 pg (28.0-33.3); Mean Corpuscular Volume 90.9 fL (83.0-100.0); Mean Platelet Volume 8.9 fL (9.4-12.4); Monocytes # 0.4 K/mcL (0.0-1.3); Monocytes % 7.1 %; Neutrophils # 2.8 K/mcL (1.6-8.9); Platelet Count 175 K/mcL (140-400); Red Blood Count 4.16 M/mcL (3.82-4.97); Red Cell Distribution Width 13.3 % (11.5-14.5); Segmented Neutrophils % 54.4 %
[2018-01-11 00:54] LABS: Prothrombin Time 10.9 Seconds (9.4-12.1)
[2018-01-11 00:56] LABS: Activated Partial Thrombo Time 29.5 Seconds (26.0-36.0)
[2018-01-11] MEDS: Nitroglycerin 0.4 MG TAB.SUBL SL PRN ×2 (00:57→01:23)
[2018-01-11 01:07] LABS: BUN/Creatinine Ratio 33 (6-26); Blood Urea Nitrogen 29 mg/dL (8-23); Calcium 9.3 mg/dL (8.6-10.3); Carbon Dioxide 24 mEq/L (23-29); Chloride 101 mEq/L (98-107); Glucose 120 mg/dL (70-105); Osmolality,Calculated 289 (280-300); Potassium 3.9 mEq/L (3.5-5.1); Sodium 136 mEq/L (136-145); eGFR For Non-African Americans > 60 (> 60)
[2018-01-11 01:08] LABS: Troponin I < 0.03 ng/mL (< 0.04)
[2018-01-11] MEDS ORDERED: *HR* FentaNYL (PF) 100 MCG/2 ML VIAL IVP ONE (01:45)
[2018-01-11] MEDS ORDERED: Nitroglycerin 25 MG/250 ML INFUS..BTL IVC SCH (01:45)
[2018-01-11] MEDS ORDERED: *HR* Heparin 5,000 UNIT/ML VIAL IVP ONE (01:58)
[2018-01-11] MEDS ORDERED: *HR* Heparin 5,000 UNIT/ML VIAL IVP PRN ×2 (01:58)
[2018-01-11] MEDS ORDERED: Heparin 25,000 UNIT/500 ML D5W 25,000 UNIT/500 ML BAG IVC SCH (02:00)
[2018-01-11 02:15] LABS: Heparin anti-factor XA UFH 0.05 IU/mL (0.30-0.70)
[2018-01-11] MEDS ORDERED: Dextrose Gel 15 GM/37.5 ML TUBE PO PRN ×2 (03:40)
[2018-01-11] MEDS ORDERED: Acetaminophen 325 MG TABLET PO PRN (03:40)
[2018-01-11] MEDS ORDERED: Naloxone 0.4 MG/ML INJ IVP PRN (03:40)
[2018-01-11] MEDS ORDERED: D5% in Water 1,000 ML IVC PRN (03:40)
[2018-01-11] MEDS ORDERED: *HR* Dextrose 50 % in Water (Syg) 50 ML SYRINGE IVP PRN (03:40)
[2018-01-11] MEDS ORDERED: 0.9 % Sodium Chloride w KCl 20 MEQ/1,000 ML MLS IVC SCH (03:45)
--- NOTE | 2018-01-11 04:25 | Internal Med History&Physical ---
Date of Encounter: 01/11/18 Time of Encounter: 03:15 Internal Medicine - H&P: HPI Chief complaint: chest pain Admitted From: Emergency Dept Plans for Post Hospital Care: Home History of present illness: Ms. Jones is a 72 year old female who presents to the ER tonight after awakening from sleep with substernal chest pain and pressure and associated dyspnea. She took some sublingual nitroglycerin and came to the ER for evaluation. She was having 8-9 out of 10 chest pain at that point when she received fentanyl and f urther nitroglycerin with some relief. She was then placed on nitroglycerin drip and admitted to hospitalist service. I called and spoke with the ER staff and requested they place her on heparin drip as well. Of note, patient had recent left heart catheterization and stent just 10 days prior. Upon my assessment of the patient at her bedside, she is now almost chest pain- free. Heparin drip and nitroglycerin drip are both infusing. Of note, patient missed several days of her aspirin since she ran out of it several days ago. She has been taking her Plavix, however. She states that she still was having anginal type chest pain even upon discharge despite having had PCI and stent. Tonight, however, her pain was more intense and severe, thus prompting her to come to the ER. She denies any fevers, cough, congestion, shortness of breath, vomiting, or diarrhea. Past Med Surg Social Fam HX - Past Medical History Attestation: Yes The following information was validated with the patient. Source: patient, old records reviewed Medical history: coronary artery disease, diabetes, GERD, hyperlipidemia, hypertension, myocardial infarction Psychiatric history: no psych history - Past Surgical History Surgical History: angioplasty/stent, appendectomy, , other, LE stent (s) Additional surgical history: ruptured appendix in childhood, 3 stents - Social History Smoking Status: Former smoker Smokeless Tobacco Status: No Alcohol use: none Drug use: none Current living situation: Home, With Family Activity Level: Independent ambulation Recent Out of Country Travel Within the Last 8 Weeks: No - Family History Mother Living Status: Hx Family Cardiac Disorders: Yes Hx Family Endocrine Disorder: Yes (DM) Father Living Status: Hx Family Cardiac Disorders: Yes Internal Medicine - H&P: Meds Meloxicam 15 mg PO DAILY 03/14/16 [History] Omeprazole [PriLOSEC] 40 mg PO DAILY 03/14/16 [History] Aspirin 81 mg PO DAILY #90 tab.chew 03/18/16 [Rx] Trazodone HCl 200 mg PO HS 01/01/18 [History] glipiZIDE [Glipizide] 10 mg PO BID 01/01/18 [History] metFORMIN [Glucophage] 1,000 mg PO BIDWM 01/01/18 [History] Cholestyramine 4 gm PO BIDAC #60 powd.pack 01/04/18 [Rx] Clopidogrel [Plavix] 75 mg PO DAILY #30 tablet 01/04/18 [Rx] Insulin Glargine,Hum.rec.anlog [Lantus Solostar] 8 unit SQ DAILY #5 insuln.pen 01/04/18 [Rx] Isosorbide MONOnitrate (24 HR) [Imdur] 30 mg PO DAILY #30 tab.er.24h 01/04/18 [Rx] Metoprolol Tartrate [Lopressor] 50 mg PO BID #0 01/04/18 [Rx] Nitroglycerin 0.4 mg SL Q5MIN PRN #30 tab.subl 01/04/18 [Rx] amLODIPine [Norvasc] 5 mg PO DAILY #30 tablet 01/04/18 [Rx] Allergy/AdvReac Type Severity Reaction Status Date / Time nitrofurantoin Allergy Hives Verified 03/14/16 06:22 [From Macrodantin] Penicillins Allergy Hives Verified 03/14/16 06:22 - Constitutional Constitutional: no chills, no fever(s), no night sweats - EENT Eyes: no blurry vision, no change in vision Ears: no ear pain, no tinnitus Nose, mouth and throat: no nasal congestion, no sinus pressure, no sore throat - Cardiovascular Cardiovascular ROS IM: chest pain, dyspnea, no lightheadedness, no palpitations, no paroxysmal nocturnal dyspnea, no syncope - Respiratory Respiratory: no cough, no hemoptysis, no chest congestion, no excessive phlegm production, no change in phlegm color - Gastrointestinal Gastrointestinal: no abdominal pain, no diarrhea, no hematemesis, no hematochezia, no melena, no nausea, no vomiting - Genitourinary Genitourinary: no dysuria, no flank pain, no hematuria - Musculoskeletal Musculoskeletal ROS IM: no arthralgias, no back pain - Integumentary Integumentary IM: no rash, no jaundice - Neurological Neurological ROS: no disequilibrium, no dizziness, no focal weakness, no frequent falls, no headache(s) - Psychiatric Psychiatric: no anxiety, no depression - Endocrine Endocrine IM: no polydipsia, no polyuria - Allergic/Immunologic Allergic/Immunologic: no wheezing, no GI upset with certain foods - Constitutional Vitals: Temp Pulse Resp BP Pulse Ox 98 F 67 15 171/92 94 01/11/18 02:39 01/11/18 02:39 01/11/18 02:39 01/11/18 02:39 01/11/18 04:03 General appearance: Present: cooperative, A&O X 3, pleasant, answers questions appropriately Exam: minimal chest pain now -- 03/04 - Head Head exam: Present: atraumatic, normal inspection - Eye Eye exam: Present: EOMI, PERRL. Absent: scleral icterus Pupils: Present: normal accommodation - ENT ENT exam: Present: mucous membranes dry, normal exam, normal oropharynx - Neck Neck exam general surgery: Present: full ROM, supple. Absent: tenderness, nuchal rigidity, thyromegaly - Respiratory Respiratory exam: Present: CTAB. Absent: chest wall tenderness, rales, rhonchi, wheezes - Cardiovascular Cardiovascular exam: Present: distant heart sounds, RRR, +S1, +S2. Absent: diastolic murmur, systolic murmur - GI/Abdominal GI/Abdominal exam: Present: normal bowel sounds, soft. Absent: guarding, hepatomegaly, mass, rebound, splenomegaly, tenderness - Extremities Exam Extremities exam: Present: normal capillary refill, warm, radial pulses palpable and symmetrical. Absent: calf tenderness, joint swelling, pedal edema, tenderness - Back Exam Back exam: Present: normal inspection. Absent: CVA tenderness (L), CVA tenderness (R) - Neurological Exam Neurological exam: Present: alert, CN II-XII intact, oriented X3, no focal deficits, strengths equal and symetr throughout - Psychiatric Psychiatric exam: Present: normal affect, normal mood - Skin Skin exam: Present: dry, intact, warm. Absent: rash Internal Med - H&P Results - Labs CBC & Chem 7: 01/11/18 00:32 01/11/18 00:32 Labs: Short CBC 01/11/18 Range/Units 00:32 WBC 5.2 (4.3-11.1) K/mcL Hgb 12.2 D (11.5-15.4) g/dL Hct 37.8 (35.3-44.9) % Plt Count 175 (140-400) K/mcL Neutrophils # 2.8 (1.6-8.9) K/mcL BMP 01/11/18 00:32 Sodium 136 Potassium 3.9 Chloride 101 Carbon Dioxide 24 BUN 29 H Creatinine 0.89 Glucose 120 H Calcium 9.3 Cardiac Enzymes 01/11/18 Range/Units 00:32 Troponin I < 0.03 (< 0.04) ng/mL - EKG Data -: EKG Interpreted by Myself - EKG Data Prior EKG available for review: yes EKG comments: 01/11/18 04:29 Sinus rhythm; old inferior [place]; no acute ST-T changes - Impressions ITS Impressions Chest X-Ray 01/11/18 00:34 IMPRESSION: 1. No active pulmonary disease. D/ / Marcelo Jensen MD / Marcelo Jensen MD Interpreting Provider: Marcelo Jensen MD - Diagnostic Studies Chest x-ray Status: image reviewed by me (negative) - Assessment and plan (1) Chest pain Current Visit: Yes Status: Acute Assessment and plan: 1. Chest pain almost gone now with NTG drip and Heparin drip. 2. Patient received ASA in ER. 3. Will trend troponins and EKG's. 4. Consult cardiology and keep npo for possible LHC. Qualifiers: Chest pain type: chest pain due to myocardial ischemia Ischemic chest pain type: unstable angina pectoris Qualified Code(s): I20.0 - Unstable angina (2) CAD (coronary artery disease) Current Visit: Yes Status: Chronic Assessment and plan: 1. Patient had recent LHC just 10 days ago with PCI/stent. 2. She missed several days of ASA. 3. Continue ASA, Plavix, and other home meds once verified. 4. Work-up as above. Qualifiers: Coronary Disease-Associated Artery/Lesion type: marshall artery [place] vs. transplanted heart: marshall heart Associated angina: with unstable angina Qualified Code(s): I25.110 - Atherosclerotic heart disease of marshall coronary artery with unstable angina pectoris (3) Diabetes Current Visit: Yes Status: Chronic Assessment and plan: 1. Hold oral home meds. 2. Will place on SSI and monitor glucose closely with adjustments as necessary. Qualifiers: Diabetes mellitus type: type 2 Diabetes mellitus retirement insulin use: with retirement use Diabetes mellitus complication status: without complication Qualified Code(s): E11.9 - Type 2 diabetes mellitus without complications; Z79.4 - FDC (current) use of insulin (4) DVT prophylaxis Current Visit: Yes Status: Acute Assessment and plan: 1. Heparin drip as above.
[2018-01-11] MEDS: traZODone 50 MG TABLET PO SCH ×2 (05:22→21:09)
[2018-01-11] MEDS: Insulin LISPRO 300 UNITS/3 ML VIAL SQ SCH ×3 (05:34→21:10)
[2018-01-11 06:15] LABS: Basophils % 0.5 %; Eosinophils # 0.2 K/mcL (0.0-0.6); Eosinophils % 3.9 %; Hematocrit 32.3 % (35.3-44.9); Hemoglobin 10.8 g/dL (11.5-15.4); Immature Granulocytes % 0.3 % (0-4); Lymphocytes # 1.7 K/mcL (0.6-4.6); Lymphocytes % 44.9 %; Mean Corpuscular HGB Conc 33.4 g/dL (31.6-35.5); Mean Corpuscular Hemoglobin 29.5 pg (28.0-33.3); Mean Corpuscular Volume 88.3 fL (83.0-100.0); Mean Platelet Volume 8.8 fL (9.4-12.4); Monocytes # 0.3 K/mcL (0.0-1.3); Monocytes % 7.3 %; Neutrophils # 1.7 K/mcL (1.6-8.9); Platelet Count 154 K/mcL (140-400); Red Blood Count 3.66 M/mcL (3.82-4.97); Red Cell Distribution Width 13.3 % (11.5-14.5); Segmented Neutrophils % 43.1 %
[2018-01-11 06:30] LABS: Alanine Aminotransferase 6 Units/L (7-52); Albumin 3.8 g/dL (3.5-5.7); Albumin/Globulin Ratio 1.8 (1.1-2.2); Alkaline Phosphatase 45 Units/L (34-104); Aspartate Amino Transferase 10 Units/L (13-39); BUN/Creatinine Ratio 36 (6-26); Bilirubin,Total 0.3 mg/dL (0.3-1.0); Blood Urea Nitrogen 27 mg/dL (8-23); Calcium 9.1 mg/dL (8.6-10.3); Carbon Dioxide 28 mEq/L (23-29); Chloride 103 mEq/L (98-107); Chol/HDL Ratio 6.2 (0-4.9); Cholesterol 259 mg/dL (< 200); Globulin 2.1 g/dL (2.4-3.5); Glucose 119 mg/dL (70-105); HDL Cholesterol 42 mg/dL (40-59); LDL Cholesterol,Calculated 178 mg/dL (0-99); Magnesium 1.2 mg/dL (1.6-2.6); Osmolality,Calculated 290 (280-300); Potassium 3.5 mEq/L (3.5-5.1); Sodium 137 mEq/L (136-145); Total Protein 5.9 g/dL (6.4-8.9); Triglycerides 197 mg/dL (< 150); eGFR For Non-African Americans > 60 (> 60)
[2018-01-11] MEDS ORDERED: D5% in 0.45% NACL 1,000 ML IVC SCH (07:45)
[2018-01-11] MEDS: Aspirin 81 MG TAB.CHEW PO SCH (08:14)
--- NOTE | 2018-01-11 08:42 | Cardiology Consult Note ---
<Cornell Young - Last Filed: 01/11/18 10:02> Date of Encounter: 01/11/18 Time of Encounter: 08:40 Assessment and Plan (1) Chest pain Current Visit: Yes Status: Acute Per Cardiology: History of NC in 2017 which put her greater than 50. Recent hospital stay with flat adynamic troponins with peak of 0.05. Symptoms somewhat atypical, however challenging to obtain accurate history. Currently chest pain-free. Troponins negative 2. ECG comparable to baseline. Currently on aspirin , however patient reports was not taking since discharge. Currently on Plavix, patient does report was taking Plavix . Denies any active bleeding or blood loss. Appears to have past intolerance to statins, however patient was agreeable to attempt statins at last hospital stay-- will add. We will add back her beta leonela. Will wean off IV nitroglycerin drip and add long-acting nitrate. Since missed doses of aspirin will check limited echo. We will review catheterization film with business services specialist sales. Discussed and reviewed with Dr. Buchanan. Qualifiers: Chest pain type: chest pain due to myocardial ischemia Ischemic chest pain type: unstable angina pectoris Qualified Code(s): I20.0 - Unstable angina (2) CAD (coronary artery disease) Current Visit: Yes Status: Chronic Per Cardiology: History CAD. Left heart catheterization from 01/02/2018 status post drug- eluting stent to mid LAD 70% lesion. Has remaining diag 1 90%, OM1 90% proximal and mid-95%-- apparently being medically managed. Has remaining nonobstructive proximal RCA 30%, mid RCA 40%, right PDA 50%, RPA V 50-60% lesions. Echo December 2017 showed EF 66 5%, mild MR, mild TR, no pulmonary hypertension, [place]MA. Qualifiers: Coronary Disease-Associated Artery/Lesion type: inupiat artery [place] vs. transplanted heart: inupiat heart Associated angina: with unstable angina Qualified Code(s): I25.110 - Atherosclerotic heart disease of inupiat coronary artery with unstable angina pectoris Discussion w patient/family: The assessment and plan as outlined above was discussed with the patient who expressed understanding and agreement. All questions were answered. Thank you for involving us in the care of your patient. Please call with any questions. History of Present Illness Consult date: 01/11/18 Requesting physician: Phillip Naumovski Consult reason: CP Chief complaint: CP History of present illness: Ms. Jones is a 72 year old female with a relevant past medical history of CAD, DM 2, HTN, HLD, GERD, and past history of nicotine abuse. Seen about one week ago during hospital stay with non-STEMI and underwent catheterization with stenting. Cardiology consult today for chest pain. Patient reports since discharge has been having ongoing daily intermittent midsternal chest discomfort with exertion unchanged from baseline. She reports she awakened the other evening with worsening midsternal epigastric burning/squeezing sensation that lasted for a few hours. She reports since discharge she is taking nitroglycerin on 2 separate occasions with some mild relief. She reports noncompliance with taking aspirin since discharge. She does report she is taking Plavix. Patient believes she may have been on long- acting nitrates in the past, however not certain. Of note, patient is hard of hearing and obtaining medical history somewhat challenging. She denies any active bleeding or blood loss. Denies any palpitations. Denies any chest pain currently. Additionally, patient found sleeping and noted to have apneic epis odes with desaturation-- patient denies history of [place]. Past Med Surg Social Fam HX - Past Medical History Attestation: Yes The following information was validated with the patient. Source: patient, old records reviewed Medical history: coronary artery disease, diabetes, GERD, hyperlipidemia, hypertension, myocardial infarction Psychiatric history: no psych history - Past Surgical History Surgical History: angioplasty/stent, appendectomy, , other, LE stent (s) Additional surgical history: ruptured appendix in childhood, 3 stents - Social History Smoking Status: Former smoker Smokeless Tobacco Status: No Alcohol use: none Drug use: none - Family History Mother Living Status: Hx Family Cardiac Disorders: Yes Hx Family Endocrine Disorder: Yes (DM) Father Living Status: Hx Family Cardiac Disorders: Yes Medications and Allergies Meloxicam 15 mg PO DAILY 03/14/16 [History] Omeprazole [PriLOSEC] 40 mg PO DAILY 03/14/16 [History] Aspirin 81 mg PO DAILY #90 tab.chew 03/18/16 [Rx] Trazodone HCl 200 mg PO HS 01/01/18 [History] glipiZIDE [Glipizide] 10 mg PO BID 01/01/18 [History] metFORMIN [Glucophage] 1,000 mg PO BIDWM 01/01/18 [History] Cholestyramine 4 gm PO BIDAC #60 powd.pack 01/04/18 [Rx] Clopidogrel [Plavix] 75 mg PO DAILY #30 tablet 01/04/18 [Rx] Insulin Glargine,Hum.rec.anlog [Lantus Solostar] 8 unit SQ DAILY #5 insuln.pen 01/04/18 [Rx] Isosorbide MONOnitrate (24 HR) [Imdur] 30 mg PO DAILY #30 tab.er.24h 01/04/18 [Rx] Metoprolol Tartrate [Lopressor] 50 mg PO BID #0 01/04/18 [Rx] Nitroglycerin 0.4 mg SL Q5MIN PRN #30 tab.subl 01/04/18 [Rx] amLODIPine [Norvasc] 5 mg PO DAILY #30 tablet 01/04/18 [Rx] Allergy/AdvReac Type Severity Reaction Status Date / Time nitrofurantoin Allergy Hives Verified 03/14/16 06:22 [From Macrodantin] Penicillins Allergy Hives Verified 03/14/16 06:22 All Systems Review: The remainder of the systems were reviewed and are negative - Cardiovascular Cardiovascular: as per HPI, chest pain at rest, chest pain with exertion Physical Examination Vital Signs, Last 4 Hours Temp Pulse Resp BP Pulse Ox 01/11/18 07:21 97.9 F 67 15 128/67 90 General: Conversant, No Apparent Distress HEENT: Atraumatic, Normocephaly, Mucus Membranes Moist, Other ([facility] [place]) Neck: No JVD, Normal carotid pulses Cardiac: Reg Rate and Rhythm, Normal S1 and S2, No Murmur Lungs: Normal Breath Sounds, No Wheeze, Rales, Rhonchi Neuro: Alert and responsive, No focal deficits noted Abdomen: Soft, Non-Tender Skin: No rashes noted on visualized skin Musculoskeletal: No Chest Wall Tenderness Extremities: No Clubbing, No Cyanosis, No Edema, Normal Pulses Results 01/11/18 05:55 01/11/18 05:55 Lab Results Laboratory Tests 01/04/18 01/11/18 01/11/18 12:06 00:32 00:32 Hgb 10.7 L INR 1.0 Creatinine 0.89 Est GFR (Non-Af Amer) > 60 AST ALT Troponin I < 0.03 LDL Cholesterol, Calc 01/11/18 01/11/18 01/11/18 05:55 05:55 05:55 Hgb 10.8 L INR Creatinine Est GFR (Non-Af Amer) AST 10 L ALT 6 L Troponin I < 0.03 LDL Cholesterol, Calc 178 H ITS Impressions Chest X-Ray 01/11/18 00:34 IMPRESSION: 1. No active pulmonary disease. D/ / Marcelo Jensen MD / Marcelo Jensen MD Interpreting Provider: Marcelo Jensen MD Active Medications Acetaminophen (Tylenol) 650 mg PO Q6HR PRN PRN Reason: Mild Pain/Fever Stop: 07/13/18 03:41 Aspirin (Aspirin) 81 mg PO DAILY [facility] Stop: 07/13/18 09:01 Last Admin: 01/11/18 08:14 Dose: 81 mg Clopidogrel Bisulfate (Plavix) 75 mg PO DAILY [facility] Stop: 07/13/18 09:01 Last Admin: 01/11/18 08:14 Dose: 75 mg Dextrose/Water (Dextrose 50% (Syg)) 25 ml IVP AD PRN PRN Reason: Hypoglycemia Stop: 07/13/18 03:41 Glucagon (Glucagen) 1 mg IM ONCE PRN PRN Reason: Hypoglycemia Stop: 07/13/18 03:41 Glucose (Gluctose) 15 gm PO ONCE PRN PRN Reason: Hypoglycemia Stop: 07/13/18 03:41 Glucose (Gluctose) 30 gm PO ONCE PRN PRN Reason: Hypoglycemia Stop: 07/13/18 03:41 Heparin Sodium (Porcine) (Heparin) 4,000 unit IVP Q6HR PRN PRN Reason: SEE COMMENTS Stop: 07/13/18 01:59 Heparin Sodium (Porcine) (Heparin) 2,000 unit IVP Q6H PRN PRN Reason: SEE COMMENTS Stop: 07/13/18 01:59 Nitroglycerin (Nitroglycerin Premix 25 Mg/250 Ml) 25 mg in 250 mls @ 3 mls/hr IVC .Q24H [facility]ANA; Protocol Stop: 07/13/18 01:46 Last Admin: 01/11/18 02:02 Dose: 5 mcg/min, 3 mls/hr Heparin Sodium/Dextrose (Heparin 25,000 Unit/500 Ml D5w) 25,000 unit in 500 mls @ 18.071 mls/hr IVC .Q24H [facility]ANA; Protocol Stop: 07/13/18 02:01 Last Admin: 01/11/18 02:29 Dose: 12 unit/kg/hr, 18.071 mls/hr Dextrose (Dextrose 5%) 1,000 mls @ 100 mls/hr IVC .Q10H PRN PRN Reason: HYPOGLYCEMIA Stop: 07/13/18 03:41 Dextrose/Sodium Chloride (D5% And 0.45% Nacl 1000 Ml Bag) 1,000 mls @ 50 mls/hr IVC .Q20H [facility]ANA Stop: 07/13/18 07:46 Last Admin: 01/11/18 08:25 Dose: 50 mls/hr Insulin Human Lispro (Humalog) 0 units SQ Q6HR [facility]ANA; Protocol Stop: 07/13/18 06:01 Last Admin: 01/11/18 05:34 Dose: Not Given Morphine Sulfate (Morphine Sulfate) 2 mg IVP Q3H PRN; Protocol PRN Reason: Chest Pain Stop: 07/13/18 03:41 Naloxone HCl (Narcan) 0.4 mg IVP Q2MIN PRN PRN Reason: SEE COMMENTS Stop: 07/13/18 03:41 Nitroglycerin (Nitroglycerin) 0.4 mg SL Q5MIN PRN PRN Reason: Chest Pain Stop: 07/13/18 00:35 Last Admin: 01/11/18 01:23 Dose: 0.4 mg Trazodone HCl (Trazodone) 200 mg PO HS [facility]ANA Stop: 07/13/18 04:31 Last Admin: 01/11/18 05:22 Dose: 200 mg - Imaging and Cardiology Echo: report reviewed Cardiac cath: report reviewed - EKG Interpretation EKG results cardiology: personally reviewed (Comparable to baseline ECG), no diagnostic ischemia Consult Discharge Plan - Plan Referrals: Madai Guevara [facility] [Primary Care Provider] - <aKye Buchanan - Last Filed: 01/11/18 10:34> Date of Encounter: 01/11/18 - Attending Attestation I examined this patient and my medical decision-making was reviewed with the [facility]. I agree with the documented findings, disposition and treatment plan as described. Ms. Jones presents with symptoms of chest pain. Recently admitted and underwent LHC for [place]; mLAD PCI MICHELLE. Patient "ran out" of her aspirin. She admits compliance with Plavix. At the bedside the patient is in NAD, AAOx3 Vital signs stable Soft SE on cardiac auscultation, normal breath sounds, no LE edema Labs demonstrate negative troponin No new ECG changes Impression: 1. Chest pain: Symptoms appear atypical. However, patient did forget to take her aspirin. No objective data to support ACS. Will restart antiplatelet ag ents - DAPT strongly enforced with patient. Interventional Cardiology to review films from last week. 2. Apnea: Patient observed to have apneic episodes and desaturation at the bedside. Recommend outpatient sleep study. Consider Social Work consult for Home Health Care to help patient take medi cations at home. Assessment and Plan Discussion w patient/family: The assessment and plan as outlined above was discussed with the patient and/or family members who expressed understanding and agreement. All questions were answered. Thank you for involving us in the care of your patient. Please call with any questions. History of Present Illness History of present illness: Ms. Jones is a 72 year old female All Systems Review: The remainder of the systems were reviewed and are negative Physical Examination Vital Signs, Last 4 Hours Temp Pulse Resp BP Pulse Ox 01/11/18 07:21 97.9 F 67 15 128/67 90 Results 01/11/18 05:55 01/11/18 05:55 Lab Results 01/11/18 01/11/18 01/11/18 00:32 00:32 00:32 WBC 5.2 Hgb 12.2 D Hct 37.8 Plt Count 175 INR 1.0 APTT 29.5 Sodium 136 Potassium 3.9 Chloride 101 Carbon Dioxide 24 BUN 29 H Creatinine 0.89 Glucose 120 H Calcium 9.3 Magnesium Total Bilirubin AST ALT Alkaline Phosphatase Troponin I < 0.03 01/11/18 01/11/18 01/11/18 05:55 05:55 05:55 WBC 3.8 L Hgb 10.8 L Hct 32.3 L Plt Count 154 INR APTT Sodium 137 Potassium 3.5 Chloride 103 Carbon Dioxide 28 BUN 27 H Creatinine 0.74 Glucose 119 H Calcium 9.1 Magnesium 1.2 L Total Bilirubin 0.3 AST 10 L ALT 6 L Alkaline Phosphatase 45 Troponin I < 0.03
--- NOTE | 2018-01-11 11:11 | Event Note ---
Date of Encounter: 01/11/18 Time of Encounter: 11:00 - Cardiology Event Note Cath films were reviewed with Dr. Perez and Dr. Buchanan, we will cancel the echo and proceed with catheterization today to evaluate OM1 lesions. Patient agreeable and all questions answered. Further recommendations after catheterization.
--- NOTE | 2018-01-11 11:14 | Pre-Sedation Evaluation ---
Pre-sedation evaluation - Pre-sedation checklist Date of procedure: 01/11/18 Procedure: C Recent Vitals: Last Vital Signs Temp 97.9 F 01/11/18 07:21 Pulse 67 01/11/18 07:21 Resp 15 01/11/18 07:21 BP 128/67 01/11/18 07:21 Pulse Ox 90 01/11/18 07:21 H&P (including ROS) documented in medical record: Yes Previous reaction to sedatives/anesthetics: No Dietary Status: NPO after Midnight Dentition: No loose teeth or bridges ASA Classification *see protocol: CLASS II-Mild systemic disease Cardiac Registry (Cardio Only) - Functional Capacity Functional Capacity: >=4 METS with symptoms - Clincal Frailty Scale Clinical Frailty Scale: Vulnerable
--- NOTE | 2018-01-11 12:03 | Event Note ---
Date of Encounter: 01/11/18 Time of Encounter: 11:58 I have seen and evaluated the patient at bedside. she reports that she is having a throbbing headache. also reports that she is still having chest pain. denies shortness of breath or palpitations. Physical exam: Vitals: Reviewed General: Alert and oriented x4. in mild distress due to chest pain and headache. Skin: Normal color, no rash, no lesions. HEENT: EOM, pupils equal, round and reactive. Cardiovascular: RRR, Normal S1 & S2, no rubs, murmurs or gallops. Lungs: CTA b/l, no wheezes or crackles. Abdomen: Soft, non-tender, no rigidity. Extremities: No deformity, no edema or tenderness, no joint swelling or clubbing. Neurological: Normal cognition and motor skills. Rest of the physical exam is non contributory Assessment and Plan: 1. Chest pain possible due to unstable angina 2. Headache likely secondary to Nitro drip 3. DM 4. VTE prophylaxis Plan: patient is scheduled for a [facility] continue Heparin drip On a bb and Isosorbide Atorvastatin 40mg/PO daily and Aspirin 81mg/PO daily. On palvix 75mg/PO daily will try to wean off nitro start morphine 2mg/IV Q4HR PRN On tramadol 50mg/PO Q6HR PRN for chest pain NPO Accu-checks Q6HRs Lispro low dose sliding scale Q6HR D5/NS@50 for maintenance fluids to avoid hypoglycemia
[2018-01-11] MEDS: Isosorbide MONOnitrate (24 HR) 30 MG TAB.ER.24H PO SCH (12:06)
[2018-01-11] MEDS: *HR* Morphine 2 MG/ML SYRINGE IVP PRN ×2 (12:07→18:21)
[2018-01-11] MEDS ORDERED: Heparin 1,000 UNITS/500 mL 500 ML ONE (12:28)
[2018-01-11] MEDS ORDERED: ISOVUE-370 200 ML INFUS..BTL ONE (12:28)
[2018-01-11] MEDS ORDERED: Nitroglycerin 1,000 MCG/10 ML VIAL IV ONE ×2 (12:28→13:47)
[2018-01-11] MEDS ORDERED: *HR* Heparin 10,000 UNIT/10 ML VIAL ONE (12:28)
[2018-01-11] MEDS ORDERED: 0.9 % Sodium Chloride 1,000 ML ONE ×2 (12:28→12:29)
[2018-01-11] MEDS ORDERED: Verapamil 5 MG/2 ML VIAL ONE (12:32)
[2018-01-11] MEDS ORDERED: *HR* Midazolam HCl 2 MG/2 ML VIAL ONE (12:45)
[2018-01-11] MEDS ORDERED: *HR* FentaNYL (PF) 100 MCG/2 ML VIAL ONE (12:45)
[2018-01-11] MEDS ORDERED: Tirofiban 12.5 MG/250ML 12.5 MG/250 ML BAG ONE (13:12)
--- NOTE | 2018-01-11 14:16 | Invasive Diagnostic Lab Proc ---
Name: Deann Jones Date of Study: 01/11/2018 Date: 1945 Ht: 66.9in Medical Record#: [id number] Age: 72 Wt: 167.55lb Gender: Female BSA: 1.87 Order #: [id number] BMI: 26.3 Physicians Procedure Physician: Allison Perez MD Referring MD: Referring MD: Staff Name Position Time In Clarence Bell RN Monitor 12:35 PM Peter Salguero RT (R) Scrub 12:35 PM Isis Villasenor RN Sheetrock Applicator 12:35 PM Indications Indication Unstable Angina Procedures Performed Procedure PRQ CARDIAC ANGIOPLAST 1 ART PRQ CARDIAC ANGIOPLAST 1 ART CORONARY ARTERY ANGIO S&I Pre-Procedure Checklist Informed consent is complete signed and on chart. H&P is on chart. ID band is on and ID verified with patient. Patient NPO for procedure The procedure was described for the patient and questions were answered. ECG is on chart. Plan of Care Patient will tolerate the procedure without complications. Adequate level of comfort will be maintained. Hemodynamics will remain stable Patient will recover from procedure without complications. Respiratory function will be maintained. Cardiac rhythm will remain stable. Patient temperature will be maintained. Patient and/or family have verbalized understanding of the procedure. Patient Education Chief Complaint/Reason for Test: Cardiac Cath Developmental Category: Geriatric (65+ years) Developmentally Appropriate for Age: Yes Learning Barriers: None Education Needs: Procedure Education Method: Verbal Information Taught: Cardiac Cath Educational Evaluation: Able to repeat information Intravenous Access Time IV Size Location DC'd Fluid/Drip Rate Units RN 18g 1 02/26" Patent On Arrival 0.9NaCl ml/hr Allergies nitrofurantoin Penicillins Vital Signs Time BP (mmHg) HR (bpm) O2 Sat. RR (bpm) LOC 12:48 PM / % 5 = Fully awake and oriented or at pre-proc level 12:48 PM / % 4 = Oriented but drowsy 01:03 PM / % 5 = Fully awake and oriented or at pre-proc level 01:18 PM / % 4 = Oriented but drowsy 12:42 PM 127 / 72 79 94 % 20 12:48 PM 159 / 88 68 93 % 22 12:53 PM 108 / 36 67 97 % 13 12:55 PM 135 / 71 66 97 % 14 12:59 PM 123 / 61 69 97 % 12 01:04 PM 124 / 69 66 98 % 21 01:09 PM 124 / 66 63 98 % 18 01:14 PM 133 / 63 62 99 % 14 01:19 PM 131 / 71 61 99 % 13 01:24 PM 132 / 75 60 99 % 14 01:29 PM 133 / 69 60 99 % 13 01:34 PM 143 / 73 60 99 % 12 01:40 PM 155 / 87 61 99 % 32 01:44 PM 147 / 75 62 96 % 25 01:49 PM 137 / 88 70 96 % 27 01:55 PM 147 / 79 68 97 % 12 Procedural Medications Time Medication Dose Units Method Given By 12:45 PM Oxygen 2 L/min nasal cannula Isis Villasenor RN 12:47 PM Versed 1 mg Intravenous Isis Villasenor RN 12:47 PM Fentanyl 50 mcg Intravenous Isis Villasenor RN 12:51 PM Lidocaine 2% 0.5 ml Subcutaneous Allison Perez MD 12:52 PM Versed 0.5 mg Intravenous Isis Villasenor RN 12:53 PM Fentanyl 25 mcg Intravenous Isis Villasenor RN 12:56 PM Heparin 2000 units Nitroglycerin 200 mcg Verapamil 2.5 mg Intraarterial Allison Perez MD 01:11 PM Aggrastat Bolus: 37.5 ml Intravenous Isis Villasenor RN 01:12 PM Aggrastat 12.5mg/250ml 13.5 ml/hr Intravenous Isis Villasenor RN 01:14 PM Heparin 2500 units Intravenous Isis Villasenor RN 01:40 PM Nitroglycerin 200 mcg Intracoronary Ciera Perez MD 01:41 PM Nitroglycerin 200 mcg Intracoronary Ciera Perez MD 01:42 PM Fentanyl 25 mcg Intravenous Isis Villasenor RN 01:47 PM Nitroglycerin 200 mcg Intracoronary Ciera Perez MD 01:47 PM Fentanyl 25 mcg Intravenous Isis Villasenor RN 01:49 PM Nitroglycerin 200 mcg Intracoronary Ciera Perez MD ASA Classification: CLASS II- Mild systemic disease (i.e. well-controlled diabetes, hypertension, asthma, cigarette smoking) Dean Score Preprocedure Postprocedure Activity 2- Moves 4 extremities sustained head lift Activity Circulation 2- SBP +/= 20 points of pre-anesthetic level Circulation Consciousness 2- Awake and alert oriented x 3 Consciousness O2 Saturation 2- Able to maintain O2 satruation of 92% on room air O2 Saturation Respiratory 2- Able to deep breathe and cough well Respiratory Total Score 10 Total Score Contrast Agent: Isovue Diagnostic Contrast: 106 ml Total Contrast: 106 ml Fluoro Dose: 8892 mGy Activated Clotting Time Time Seconds to Clot 01:14 PM 179 Procedure Log Time Note Enter By 12:35 PM Clarence Bell RN Position: Monitor Time in: 12:35 [email or web address] 12:35 PM Peter Salguero RT (R) Position: Scrub Time in: 12:35 [email or web address] 12:36 PM Isis Villasenor RN Position: Sheetrock Applicator Time in: 12:35 [email or web address] 12:36 PM Patient charges- Angio tray pack, Navilyst 3mm J, Pulse Oximetry and ACIST tubing and transducer [email or web address] 12:36 PM IV Supplies used: J loop Angio Cath. [email or web address] 12:42 PM Vitals capture started with the following parameters, Patient=Adult, Interval=5 min, Initial Bsausttw=100 mmHg, Deflation Rate=5 mmHg, Cuff placed on Right Arm 12:42 PM Pt arrived to recyclable materials collector 2 at 12:42 [email or web address] 12[facility]42 PM Physician arrived 12:42 [email or web address] 12:42 PM ASA Class CLASS II- Mild systemic disease (i.e. well-controlled diabetes, hypertension, asthma, cigarette smoking) [email or web address] 12:42 PM Meet and greet completed [email or web address] 12:42 PM Sign in performed according to hospital policy. Informed consent was obtained. [email or web address] 12:42 PM Procedure start 12:42 [email or web address] 12:42 PM HR=79 bpm, LOOR=403/72 mmhg, SpO2=94.0 %, Resp=20 B/min, Comment=NSR 12:43 PM Allens test on Ulnar took > 7 seconds [email or web address] 12:45 PM Time: 12:45 Oxygen on at 2 L/min per nasal cannula by Isis Villasenor RN [email or web address] 12:47 PM Time: 12:47 Versed 1 mg Intravenous Given by Isis Villasenor RN [email or web address] 12:47 PM Time: 12:47 Fentanyl 50 mcg Intravenous Given by Isis Villasenor RN [email or web address] 12:47 PM Recorded ECG: HR=67 Condition=Condition 1 12:48 PM Time: 12:47 Patient comfortable and pain free: Yes [email or web address] 12:48 PM Time: 12:48LOC: 5 = Fully awake and oriented or at pre-proc level [email or web address] 12:48 PM HR=68 bpm, ZDBJ=428/88 mmhg, SpO2=93.0 %, Resp=22 B/min, Comment=NSR 12:51 PM Clinical Presentation: Unstable angina [email or web address] 12:51 PM Time out was performed according to hospital policy. Conscious sedation and anesthesia was achieved (see medication log with in this report above) [email or web address] 12:51 PM Time: 12:51 0.5 ml Lidocaine 2% to right radial Subcutaneous Given by Allison Perez MD [email or web address] 12:51 PM Case Start 12:51 PM CathStat 12:53 PM Time: 12:52 Versed 0.5 mg Intravenous Given by Isis Villasenor RN [email or web address] 12:53 PM Time: 12:53 Fentanyl 25 mcg Intravenous Given by Isis Villasenor RN [email or web address] 12:53 PM HR=67 bpm, JTHB=783/36 mmhg, SpO2=97.0 %, Resp=13 B/min, Comment=NSR 12:54 PM Vitals capture stopped. 12:54 PM Vitals capture started with the following parameters, Patient=Adult, Interval=5 min, Initial Tugfbopy=930 mmHg, Deflation Rate=5 mmHg, Cuff placed on Right Arm 12:55 PM HR=66 bpm, ASXB=431/71 mmhg, SpO2=97.0 %, Resp=14 B/min, Comment=NSR 12:55 PM Access obtained by percutaneous puncture. 5/6Fr 11cm Terumo Glidesheath sheath placed in right Radial artery. [id number] [email or web address] 12:56 PM Time: 12:56 Patient given 2,000 units Heparin, 200 mcg Nitroglycerin, and 2.5 mg Verapamil Intraarterial by Allison Perez MD. This is given to reduce risk of vessel spasm and thrombosis. [email or web address] 12:56 PM 6Fr EBU 3.5 Medtronic guide catheter was used to cannulate the PCI vessel successfully. reused? No [email or web address] 12:57 PM 0.035 145cm Navilyst 3mmJ wire [id number] [email or web address] 12:59 PM 0.035 260cm Glidewire wire [id number] [email or web address] 12:59 PM HR=69 bpm, EMCL=129/61 mmhg, SpO2=97.0 %, Resp=12 B/min, Comment=NSR 01:00 PM Coronary Dominance: right [email or web address] 01:01 PM Glidewire removed, Long J wire reinserted [email or web address] 01:03 PM Time: 12:48LOC: 4 = Oriented but drowsy [email or web address] 01:03 PM Time: 12:48 Patient comfortable and pain free: Yes [email or web address] 01:04 PM Guide catheter removed intact. Unable to engage. [email or web address] 01:04 PM HR=66 bpm, CBMG=106/69 mmhg, SpO2=98.0 %, Resp=21 B/min, Comment=NSR 01:06 PM 6Fr XB3.0 Cordis guide catheter was used to cannulate the PCI vessel successfully. reused? No [email or web address] 01:08 PM Recorded Pressure: Ao, HR=64, Condition=Condition 1 (Aorta) Ao 102/53/75 01:09 PM HR=63 bpm, FNIJ=281/66 mmhg, SpO2=98.0 %, Resp=18 B/min, Comment=NSR 01:10 PM LCA angiography performed in multiple views. [email or web address] 01:10 PM .014 [employer] [place]ard 190cm guide wire across target lesion- successful. reused? No [email or web address] 01:10 PM Inflation device was opened. [email or web address] 01:10 PM Recorded Pressure: Ao, HR=63, Condition=Condition 1 (Aorta) Ao 106/53/76 01:12 PM Time: 13:11 Aggrastat Bolus: 37.5 ml Intravenous Given by Isis Villasenor RN Treviño pump [email or web address] 01:12 PM Time: 13:12 Aggrastat 12.5mg/250ml 13.5 ml/hr Intravenous Given by Isis Villasenor RN Treviño pump [email or web address] 01:13 PM Recorded Pressure: Ao, HR=64, Condition=Condition 1 (Aorta) Ao 106/53/77 01:14 PM At 13:14 the ACT was 179 seconds. [email or web address] 01:14 PM Time: 13:14 Heparin 2500 units Intravenous Given by Isis Villasenor RN [email or web address] 01:14 PM HR=62 bpm, DEEG=429/63 mmhg, SpO2=99.0 %, Resp=14 B/min, Comment=NSR 01:16 PM Lesion found in 1st Marginal. Pre Stenosis: 90 Pre CAIO Flow: 3: Complete and Brisk Flow/Perfusion [email or web address] 01:17 PM 1.5 mm x 12 mm Mozec Rx balloon across target lesion- unsuccessful. reused? No [email or web address] 01:18 PM Time: 13:03 Patient comfortable and pain free: Yes [email or web address] 01:18 PM Time: 13:03LOC: 5 = Fully awake and oriented or at pre-proc level [email or web address] 01:19 PM HR=61 bpm, CTGN=063/71 mmhg, SpO2=99.0 %, Resp=13 B/min, Comment=NSR 01:20 PM Recorded Pressure: Ao, HR=60, Condition=Condition 1 (Aorta) Ao 104/59/80 01:21 PM BMW repositioned down LAD [email or web address] 01:21 PM .014 [employer] [place] 190cm guide wire across target lesion- successful. reused? No [email or web address] 01:21 PM 2nd BMW positioned down 1st marginal branch [email or web address] 01:23 PM Recorded Pressure: Ao, HR=62, Condition=Condition 1 (Aorta) Ao 110/54/78 01:24 PM HR=60 bpm, EIMZ=752/75 mmhg, SpO2=99.0 %, Resp=14 B/min, Comment=NSR 01:27 PM Balloon catheter removed intact. Undeployed [email or web address] 01:28 PM 2.0 mm x 8 mm Emerge Monorail balloon across target lesion- unsuccessful. reused? No [email or web address] 01:29 PM HR=60 bpm, KLCN=114/69 mmhg, SpO2=99.0 %, Resp=13 B/min, Comment=NSR 01:33 PM Time: 13:18 Patient comfortable and pain free: Yes [email or web address] 01:33 PM Time: 13:18LOC: 4 = Oriented but drowsy [email or web address] 01:34 PM HR=60 bpm, VVSB=435/73 mmhg, SpO2=99.0 %, Resp=12 B/min, Comment=NSR 01:35 PM Balloon inflated @ 6 yanni for 11 seconds [email or web address] 01:35 PM Balloon inflated @ 10 yanni for 30 seconds [email or web address] 01:36 PM Balloon inflated @ 12 yanni for 24 seconds [email or web address] 01:37 PM Balloon inflated @ 14 yanni for 25 seconds [email or web address] 01:37 PM Balloon inflated @ 14 yanni for 11 seconds [email or web address] 01:38 PM Balloon inflated @ 14 yanni for 11 seconds [email or web address] 01:38 PM Balloon catheter removed intact. [email or web address] 01:39 PM BMW removed from 1st marginal [email or web address] 01:40 PM HR=61 bpm, YAMW=047/87 mmhg, SpO2=99.0 %, Resp=32 B/min, Comment=NSR 01:40 PM Time: 13:40 Nitroglycerin 200 mcg Intracoronary Given by Ciera Perez MD [email or web address] 01:40 PM Recorded Pressure: Ao, HR=68, Condition=Condition 1 (Aorta) Ao 118/57/83 01:41 PM Time: 13:41 Nitroglycerin 200 mcg Intracoronary Given by Ceira Perez MD [email or web address] 01:42 PM Recorded Pressure: Ao, HR=67, Condition=Condition 1 (Aorta) Ao 129/69/95 01:42 PM Time: 13:42 Fentanyl 25 mcg Intravenous Given by Isis Villasenor RN [email or web address] 01:43 PM Lesion found in Proximal LAD. Pre Stenosis: 40 Pre CAIO Flow: 3: Complete and Brisk Flow/Perfusion [email or web address] 01:44 PM 3.0 mm x 12mm NC Emerge balloon across target lesion- successful. reused? No [email or web address] 01:44 PM HR=62 bpm, BLOI=071/75 mmhg, SpO2=96.0 %, Resp=25 B/min, Comment=NSR 01:45 PM Balloon inflated @ 18 yanni for 16 seconds [email or web address] 01:46 PM Recorded Pressure: Ao, HR=64, Condition=Condition 1 (Aorta) Ao 121/73/95 01:46 PM Balloon catheter removed intact. [email or web address] 01:47 PM Time: 13:47 Nitroglycerin 200 mcg Intracoronary Given by Ciera Perez MD [email or web address] 01:47 PM Time: 13:47 Fentanyl 25 mcg Intravenous Given by Isis Villasenor RN [email or web address] 01:49 PM Time: 13:49 Nitroglycerin 200 mcg Intracoronary Given by Ciera Perez MD [email or web address] 01:49 PM HR=70 bpm, IIHB=386/88 mmhg, SpO2=96.0 %, Resp=27 B/min, Comment=NSR 01:50 PM Guide wire removed intact. [email or web address] 01:50 PM Recorded Pressure: Ao, HR=67, Condition=Condition 1 (Aorta) Ao 105/34/69 01:50 PM Guide catheter removed intact. [email or web address] 01:52 PM Procedure completed at 13:52 01/11/2018 [email or web address] 01:52 PM Did you address CAIO flow and Dominance? Yes [email or web address] 01:53 PM Sign out completed: Radiation Dose 1427.36 mGy, 8892.49 cGy/cm2 Fluoro Time: 24.7 Isovue 370 - 200ml contrast 106 ml given by Allison Perez MD. Complications: None. The patient was discharged out of the cork slabs sawyer in stable condition. Cardiac Rehab Consult needed: YesConfirmed administered medications: Yes [email or web address] 01:53 PM Isovue 370 - 200ml,1 Bottle(s) used. [email or web address] 01:53 PM Arterial sheath pulled, Vasc Band closure device used and was Successful S/N. [email or web address] 01:53 PM 12 ml air in Vasc Band. [email or web address] 01:53 PM Estimated Blood Loss: minimal [email or web address] 01:54 PM Post ECG NSR [email or web address] 01:54 PM Post Blood Pressure 137/88 [email or web address] 01:54 PM Information taught Cardiac Cath, PCI, and Vasc Band [email or web address] 01:54 PM Education needs Procedure, Plan of Care, and Disease Process [email or web address] 01:54 PM Learning barriers :None [email or web address] 01:54 PM Education Methods Verbal [email or web address] 01:54 PM Education evaluation Able to repeat information [email or web address] 01:54 PM Site status No bleeding/hematoma - Rt Arm as reported by Peter Salguero RT (R) at 13:54 [email or web address] 01:54 PM Plavix, Effient or Brilinta given No [email or web address] 01:55 PM HR=68 bpm, KQQN=396/79 mmhg, SpO2=97.0 %, Resp=12 B/min 02:07 PM Family placed in consult room. [email or web address] 02:07 PM Report given to Carolina PHELPS Pt taken to E Room #30. 14:07 [email or web address] 02:07 PM Patient out of room: 14:07 [email or web address] 02:07 PM Complications: None [email or web address] Complications Complication None None Hemodynamics Pressures Site Systolic/A Wave Diastolic/V Wave Mean AO 102 53 75 AO 106 53 76 AO 106 53 77 AO 104 59 80 AO 110 54 78 AO 118 57 83 AO 129 69 95 AO 121 73 95 AO 105 34 69 Post Procedure Information Blood Pressure: 137/88 mmHg Rhythm: NSR Post procedural instructions were given Site Checks Time Location Status Staff Sheath In? Note 01:54 PM Rt Arm No bleeding/hematoma Peter Salguero RT (R) NO Pulses Time Site Pre-Procedure Post-Procedure Note Bilateral DP & PT 1+ 1+ Bilateral radial 2+ 2+ Updated by Vivienne Toussaint RT(R) on 01/11/2018 2:10:07 PM electronically signed on 01/11/2018 2:11:12 PM with status of Final
[2018-01-12 05:18] LABS: Basophils % 0.2 %; Eosinophils # 0.3 K/mcL (0.0-0.6); Eosinophils % 5.8 %; Hematocrit 33.5 % (35.3-44.9); Hemoglobin 10.7 g/dL (11.5-15.4); Immature Granulocytes % 0.2 % (0-4); Lymphocytes # 1.3 K/mcL (0.6-4.6); Lymphocytes % 27.7 %; Mean Corpuscular HGB Conc 31.9 g/dL (31.6-35.5); Mean Corpuscular Hemoglobin 29.1 pg (28.0-33.3); Mean Platelet Volume 8.7 fL (9.4-12.4); Monocytes # 0.4 K/mcL (0.0-1.3); Neutrophils # 2.6 K/mcL (1.6-8.9); Platelet Count 151 K/mcL (140-400); Red Blood Count 3.68 M/mcL (3.82-4.97); Red Cell Distribution Width 13.3 % (11.5-14.5); Segmented Neutrophils % 58.1 %
[2018-01-12 05:37] LABS: BUN/Creatinine Ratio 18 (6-26); Blood Urea Nitrogen 14 mg/dL (8-23); Calcium 9.2 mg/dL (8.6-10.3); Carbon Dioxide 28 mEq/L (23-29); Chloride 104 mEq/L (98-107); Glucose 118 mg/dL (70-105); Magnesium 1.4 mg/dL (1.6-2.6); Osmolality,Calculated 290 (280-300); Phosphorous 3.2 mg/dL (2.7-4.5); Potassium 3.9 mEq/L (3.5-5.1); Sodium 139 mEq/L (136-145); eGFR For Non-African Americans > 60 (> 60)
[2018-01-12] MEDS: Ketorolac 30 MG/ML VIAL IVP PRN ×2 (06:03→13:56)
[2018-01-12] MEDS: *HR* Heparin 5,000 UNIT/ML VIAL SQ SCH ×2 (06:03→16:59)
[2018-01-12] MEDS: Insulin LISPRO 300 UNITS/3 ML VIAL SQ SCH ×3 (07:20→16:30)
--- NOTE | 2018-01-12 08:22 | Cardiology Progress Note ---
Date of Encounter: 01/12/18 Time of Encounter: 08:20 Assessment and Plan (1) Chest pain Current Visit: Yes Status: Acute Per Cardiology: Patient experiencing 10/10 chest pain this morning, different than admitting chest pain. ECG comparable to baseline with no ischemic changes noted-- reviewed with Dr. Buchanan. Will apply nasal cannula oxygen and patient received supplemental nitroglycerin pill. Receiving long-acting dose of nitrate this morning. Catheterization film reviewed with Dr. Susan Zapata, will increase long-acting nitrate. We will cycle troponins. No further catheterization warranted this time. Qualifiers: Chest pain type: chest pain due to myocardial ischemia Ischemic chest pain type: unstable angina pectoris Qualified Code(s): I20.0 - Unstable angina (2) CAD (coronary artery disease) Current Visit: Yes Status: Chronic Per Cardiology: Echo December 2017 showed EF 66 5%, mild MR, mild TR, no pulmonary hypertension, NSWMA. Underwent repeat left heart catheterization: Status post PTCA of proximal LAD 40% in-stent restenosis of the proximal LAD in-stent restenosis wit h residual stenosis 20%, first diagonal noted to be small in size. Patient underwent PTCA of 90% OM1 with final stenosis of 20%, noted to have distal OM1 95% lesion and noted to be small vessel. On aspirin, Plavix, statin, beta leonela, and long-acting nitrate. Qualifiers: Coronary Disease-Associated Artery/Lesion type: [place] artery [place] vs. transplanted heart: [place] heart Associated angina: with unstable angina Qualified Code(s): I25.110 - Atherosclerotic heart disease of [place] coronary artery with unstable angina pectoris Discussion w patient/family: The assessment and plan as outlined above was discussed with the patient who expressed understanding and agreement. All questions were answered. Thank you for involving us in the care of your patient. Please call with any questions. Subjective Principal diagnosis: [place], CAD Interval history: Patient complaint of midsternal chest pressure/heaviness today 10 out of 10 with radiating back pain. She reports symptoms different than she expressed yesterday prior to catheterization. Of note, patient very hard of hearing and difficult to obtain accurate history from. She denies any nausea, vomiting, palpitations, shortness of breath. Objective Vital Signs, Last 4 Hours Temp Pulse Resp BP Pulse Ox 01/12/18 07:12 97.9 F 64 18 137/65 90 01/12/18 05:48 62 18 138/74 96 General: Conversant, No Apparent Distress HEENT: Atraumatic, Normocephaly, Mucus Membranes Moist Neck: No JVD, Normal carotid pulses Cardiac: Reg Rate and Rhythm, Normal S1 and S2, No Murmur Lungs: Normal Breath Sounds, No Wheeze, Rales, Rhonchi Neuro: Alert and responsive, No focal deficits noted Abdomen: Soft, Non-Tender Skin: No rashes noted on visualized skin Musculoskeletal: No Chest Wall Tenderness Extremities: No Clubbing, No Cyanosis, No Edema, Normal Pulses Results 01/12/18 04:57 01/12/18 04:57 Lab Results Laboratory Tests 01/12/18 01/12/18 04:57 04:57 Hgb 10.7 L Hct 33.5 L Creatinine 0.76 Est GFR (Non-Af Amer) > 60 Magnesium 1.4 L Active Medications Acetaminophen (Tylenol) 650 mg PO Q6HR PRN PRN Reason: Mild Pain/Fever Stop: 07/13/18 03:41 Aspirin (Aspirin) 81 mg PO DAILY [facility] Stop: 07/13/18 09:01 Last Admin: 01/11/18 08:14 Dose: 81 mg Atorvastatin Calcium (Lipitor) 10 mg PO HS [facility] Stop: 07/13/18 21:01 Last Admin: 01/11/18 21:10 Dose: Not Given Clopidogrel Bisulfate (Plavix) 75 mg PO DAILY [facility] Stop: 07/13/18 09:01 Last Admin: 01/11/18 08:14 Dose: 75 mg Dextrose/Water (Dextrose 50% (Syg)) 25 ml IVP AD PRN PRN Reason: Hypoglycemia Stop: 07/13/18 03:41 Glucagon (Glucagen) 1 mg IM ONCE PRN PRN Reason: Hypoglycemia Stop: 07/13/18 03:41 Glucose (Gluctose) 15 gm PO ONCE PRN PRN Reason: Hypoglycemia Stop: 07/13/18 03:41 Glucose (Gluctose) 30 gm PO ONCE PRN PRN Reason: Hypoglycemia Stop: 07/13/18 03:41 Heparin Sodium (Porcine) (Heparin) 5,000 unit SQ Q12HCO [facility] Stop: 07/14/18 06:01 Last Admin: 01/12/18 06:03 Dose: 5,000 unit Dextrose (Dextrose 5%) 1,000 mls @ 100 mls/hr IVC .Q10H PRN PRN Reason: HYPOGLYCEMIA Stop: 07/13/18 03:41 Dextrose/Sodium Chloride (D5% And 0.45% Nacl 1000 Ml Bag) 1,000 mls @ 50 mls/hr IVC .Q20H [facility] Stop: 07/13/18 07:46 Last Admin: 01/11/18 08:25 Dose: 50 mls/hr Insulin Human Lispro (Humalog) 0 units SQ TIDAC [facility]; Protocol Stop: 07/13/18 20:16 Last Admin: 01/12/18 07:20 Dose: Not Given Isosorbide Mononitrate (Imdur) 30 mg PO DAILY [facility] Stop: 07/13/18 10:01 Last Admin: 01/11/18 12:06 Dose: 30 mg Ketorolac Tromethamine (Toradol) 30 mg IVP Q6HR PRN PRN Reason: Mild Pain Stop: 01/17/18 02:03 Last Admin: 01/12/18 06:03 Dose: 30 mg Metoprolol Tartrate (Lopressor) 25 mg PO BID [facility] Stop: 07/13/18 09:01 Last Admin: 01/11/18 21:09 Dose: 25 mg Morphine Sulfate (Morphine Sulfate) 2 mg IVP Q3H PRN; Protocol PRN Reason: Chest Pain Stop: 07/13/18 03:41 Last Admin: 01/11/18 18:21 Dose: 2 mg Naloxone HCl (Narcan) 0.4 mg IVP Q2MIN PRN PRN Reason: SEE COMMENTS Stop: 07/13/18 03:41 Nitroglycerin (Nitroglycerin) 0.4 mg SL Q5MIN PRN PRN Reason: Chest Pain Stop: 07/13/18 00:35 Last Admin: 01/11/18 01:23 Dose: 0.4 mg Omeprazole (Prilosec) 40 mg PO DAILY@0630 [facility] Stop: 07/14/18 06:31 Last Admin: 01/12/18 06:04 Dose: 40 mg Trazodone HCl (Trazodone) 200 mg PO HS [facility] Stop: 07/13/18 04:31 Last Admin: 01/11/18 21:09 Dose: 200 mg - Imaging and Cardiology Cardiac cath: report reviewed Consult Discharge Plan - Plan Referrals: Madai Guevara CNP [Primary Care Provider] -
[2018-01-12] MEDS: Aspirin 81 MG TAB.CHEW PO SCH (08:36)
[2018-01-12] MEDS: Isosorbide MONOnitrate (24 HR) 30 MG TAB.ER.24H PO SCH (08:36)
[2018-01-12] MEDS: Nitroglycerin 0.4 MG TAB.SUBL SL PRN ×4 (09:15→18:43)
[2018-01-12] MEDS ORDERED: Isosorbide MONOnitrate (24 HR) 30 MG TAB.ER.24H PO ONE (09:53)
--- NOTE | 2018-01-12 13:32 | Electrocardiograph Report ---
[address] [address] Test Date: 2018-01-11 Pat Name: Deann Jones Department: EXAM19 Room: 2NE30 Gender: F Continuous Improvement Analyst: : 1945 Requested By: Randy Westfall Order Number: [id number] Reading MD: Zayda Cardoso Measurements Intervals [place] Rate: 75 P: 53 AR: 194 QRS: -58 QRSD: 101 T: 94 QT: 402 QTc: 449 Interpretive Statements Sinus rhythm Left axis deviation ST&T abnormalities consistent with ischemia Electronically Signed On 01-12-2018 13:31:10 EST by Zayda Cardoso
--- NOTE | 2018-01-12 13:33 | Electrocardiograph Report ---
[address] [address] Test Date: 2018-01-11 Pat Name: Deann Jones Department: EXAM19 Room: 2NE30 Gender: F Critical Care Transport Nurse: : 1945 Requested By: Phillip Robles Order Number: [id number] Reading MD: Zayda Cardoso Measurements Intervals [place] Rate: 75 P: 52 [place]: 200 QRS: -62 QRSD: 99 T: 76 QT: 400 QTc: 447 Interpretive Statements Sinus rhythm Left axis deviation Nonspecific T abnormalities Electronically Signed On 01-12-2018 13:32:14 EST by Zayda Cardoso
--- NOTE | 2018-01-12 16:31 | Electrocardiograph Report ---
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
[2018-01-12] MEDS: traZODone 50 MG TABLET PO SCH (21:33)
[2018-01-12] MEDS ORDERED: traMADol 50 MG TABLET PO PRN (22:20)
[2018-01-12] MEDS ORDERED: Sennosides/Docusate Sodium TABLET PO PRN (22:55)
[2018-01-12] MEDS: Cholestyramine 4 GM POWD.PACK PO SCH (23:05)
--- NOTE | 2018-01-13 00:01 | Internal Med Progress Note ---
Hospitalist Progress Note - Encounter Date of Encounter: 01/12/18 Time of Encounter: 18:00 - Subjective Interval History: SUBJECTIVE: The patient continues to complain of burning pain behind her sternum; with radiation to mid back. It is not associated with any other symptoms. Denies abdominal pain, nausea and vomiting. She has normal urination. OBJECTIVE: Skin: Free of rash and discoloration. ENMT: Oral/pharyngeal mucosa is normal in appearance. Eyes: Sclera is white. There is no discharge from eyes. Respiratory: Normal breath sounds; no crackles or wheezes. CV: Heart is regular; no gallop or murmur. GI: Abdomen is soft and not tender. There is no palpable mass or visceromegaly. Neuro: There is no focal deficits. ADDITIONAL DATA: Hemoglobin is 10.7 with WBC of 4.5 thousand. She has normal electrolytes with creatinine of 0.76. ASSESSMENT AND PLAN: And STEMI/coronary artery disease. The patient had cardiac catheterization/stenting of proximal LAD and proximal first marginal. Cardiology is on consult. Will continue Lopressor with Lipitor and aspirin/Plavix. The patient is on Imdur. Type 2 diabetes mellitus. We will continue diabetic diet and when necessary insulin Humalog. She was on oral hypoglycemics (Glucophage and glipizide) at home. Hypertension/hyperlipidemia. Under control. We will continue Lopressor and Lipitor. GERD. We will continue omeprazole. - Exam Vitals: Temp Pulse Resp BP Pulse Ox 98.5 F 66 15 120/70 97 01/12/18 20:00 01/12/18 20:00 01/12/18 20:00 01/12/18 20:00 01/12/18 20:00 Exam: xx - Assessment and Plan (1) NSTEMI (non-ST elevated myocardial infarction) Current Visit: No Status: Acute (2) CAD (coronary artery disease) Current Visit: Yes Status: Chronic (3) Diabetes Current Visit: Yes Status: Chronic (4) Hypertension Current Visit: No Status: Chronic (5) Hyperlipidemia Current Visit: No Status: Chronic (6) GERD (gastroesophageal reflux disease) Current Visit: Yes Status: Acute - Time Spent with Patient Total time spent is greater than 50% in coordination of care (as documented) at patient's floor/unit and/or counseling patient: 25 - 35 minutes Plan of Care Discussed with: patient Internal Medicine: Result - Labs CBC & Chem 7: 01/12/18 04:57 01/12/18 04:57 Labs: Short CBC 01/12/18 Range/Units 04:57 WBC 4.5 (4.3-11.1) K/mcL Hgb 10.7 L (11.5-15.4) g/dL Hct 33.5 L (35.3-44.9) % Plt Count 151 (140-400) K/mcL Neutrophils # 2.6 (1.6-8.9) K/mcL BMP 01/12/18 04:57 Sodium 139 Potassium 3.9 Chloride 104 Carbon Dioxide 28 BUN 14 Creatinine 0.76 Glucose 118 H Calcium 9.2 Cardiac Enzymes 01/12/18 01/12/18 Range/Units 09:33 16:40 Troponin I 0.45 H* 0.58 H* (< 0.04) ng/mL - ABG Interpretation ABG results: PT/INR, D-dimer PT 10.9 Seconds (9.4-12.1) 01/11/18 00:32 Consult Discharge Plan - Plan Referrals: Madai Guevara, E COMMERCE MANAGER [Primary Care Provider] - (2) CAD (coronary artery disease) Qualifiers: Coronary Disease-Associated Artery/Lesion type: [place] artery [place] vs. transplanted heart: [place] heart Associated angina: with unstable angina Qualified Code(s): I25.110 - Atherosclerotic heart disease of [place] coronary artery with unstable angina pectoris (3) Diabetes Qualifiers: Diabetes mellitus type: type 2 Diabetes mellitus terminal press operator insulin use: with terminal press operator use Diabetes mellitus complication status: without complication Qualified Code(s): E11.9 - Type 2 diabetes mellitus without complications; Z79.4 - intermediate (current) use of insulin (4) Hypertension Qualifiers: Hypertension type: essential hypertension Qualified Code(s): I10 - Essential (primary) hypertension (5) Hyperlipidemia Qualifiers: Hyperlipidemia type: mixed hyperlipidemia Qualified Code(s): E78.2 - Mixed hyperlipidemia
[2018-01-13] MEDS: *HR* Heparin 5,000 UNIT/ML VIAL SQ SCH (05:05)
[2018-01-13] MEDS: Docusate Oral Soln 100 MG/10 ML UDC PO SCH ×2 (05:05→09:08)
[2018-01-13] MEDS: Nitroglycerin 0.4 MG TAB.SUBL SL PRN ×3 (05:25→09:31)
[2018-01-13] MEDS ORDERED: Isosorbide MONOnitrate (24 HR) 60 MG TAB.ER.24H PO SCH (09:00)
[2018-01-13] MEDS: Insulin LISPRO 300 UNITS/3 ML VIAL SQ SCH ×3 (09:07→13:11)
[2018-01-13] MEDS ORDERED: GI Cocktail 40 ML EACH PO ONE (09:07)
[2018-01-13] MEDS: Cholestyramine 4 GM POWD.PACK PO SCH ×2 (09:09→15:10)
[2018-01-13] MEDS: Aspirin 81 MG TAB.CHEW PO SCH (09:10)
[2018-01-13] MEDS ORDERED: Isosorbide MONOnitrate (24 HR) 30 MG TAB.ER.24H PO ONE (09:36)
--- NOTE | 2018-01-13 09:37 | Cardiology Progress Note ---
Date of Encounter: 01/13/18 Time of Encounter: 09:20 Assessment and Plan (1) Chest pain Current Visit: Yes Status: Acute Per Cardiology: Pt presents with recurrent chest pain after recent PCI. She underwent repeat LHC 01/11/18 that revealed 40% instent restenosis in the Proximal LAD. She received PTCA down to 20%. The first Diagonal is small in size. 90% stenosis in the 1st Marginal. She received PTCA with final stenosis 20%. The Distal 1st Marginal Branch has a 95% lesion. Small Vessel. The 1st post procedure day she developed severe chest pain. LHC films reviewed with interventionalist and re-peat LHC was not recommended. EKG showed no acute findings. Troponin was found to be elevated 0.045, 0.58, 0.48. This is not out of proportion of expected elevation after PCI. Imdur was increased and she was given SL NTG. Today she is feeling better. Continues to have mild chest pressure at rest. EKG completed this morning with no acute ST changes. Discussed with Dr. Buchanan, we will increase imdur and give GI cocktail for possible GI symptoms. Increase prilosec to BID. Cardiac rehab recommended. Recommended ambulating in hallway. If no increase in symptoms out-pt f/u will be arranged. Qualifiers: Chest pain type: chest pain due to myocardial ischemia Ischemic chest pain type: unstable angina pectoris Qualified Code(s): I20.0 - Unstable angina (2) CAD (coronary artery disease) Current Visit: Yes Status: Chronic Per Cardiology: H/o [place]. S/p recent PCI to the LAD. S/p PTCA to the mLAD ISR and OM. Small vessel disease remaining and mm recommended. Continue asa, plavix, statin, and bb. Increase imdur. NTG SL PRN. Close out-pt cardiology f/u. Qualifiers: Coronary Disease-Associated Artery/Lesion type: [place] artery [place] vs. transplanted heart: [place] heart Associated angina: with unstable angina Qualified Code(s): I25.110 - Atherosclerotic heart disease of [place] coronary artery with unstable angina pectoris Discussion w patient/family: The assessment and plan as outlined above was discussed with the patient and/or family members who expressed understanding and agreement. All questions were answered. Thank you for involving us in the care of your patient. Please call with any questions. Subjective Principal diagnosis: [place], CAD Interval history: Mr. Jones is resting quietly in bed. States she is feeling better than yesterday. Reports mild midsternal pressure. Yesterday she had intermittent severe pain. Objective Vital Signs, Last 4 Hours Temp Pulse Resp BP Pulse Ox 01/13/18 07:13 97.5 F L 71 23 144/89 100 01/13/18 07:05 97.5 F L 59 18 134/72 98 General: Conversant, No Apparent Distress HEENT: Atraumatic, Normocephaly, Mucus Membranes Moist Neck: No JVD, Normal carotid pulses Cardiac: Reg Rate and Rhythm, Normal S1 and S2, No Murmur Lungs: Normal Breath Sounds, No Wheeze, Rales, Rhonchi Neuro: Alert and responsive, No focal deficits noted Abdomen: Soft, Non-Tender Skin: No rashes noted on visualized skin Musculoskeletal: No Chest Wall Tenderness Extremities: No Clubbing, No Cyanosis, No Edema, Normal Pulses, Other (Right radial access site with scabbed area and ecchymosis. No hematoma. Denies pain to palpation. ) Results 01/12/18 04:57 01/12/18 04:57 Lab Results 01/12/18 01/12/18 01/13/18 09:33 16:40 05:47 Troponin I 0.45 H* 0.58 H* 0.48 H* - Imaging and Cardiology Echo: report reviewed Cardiac cath: report reviewed - EKG Interpretation EKG results cardiology: personally reviewed Consult Discharge Plan - Plan Referrals: Madai Guevara CNP [Primary Care Provider] - (appt requested)
[2018-01-13 15:38] VITALS: BP 109/72
--- NOTE | 2018-01-13 15:59 | Discharge Summary ---
Date of Encounter: 01/13/18 Time of Encounter: 15:57 - Discharge Diagnosis (1) NSTEMI (non-ST elevated myocardial infarction) Priority: Primary Status: Acute (2) GERD (gastroesophageal reflux disease) Priority: Primary Status: Acute Qualifiers: Esophagitis presence: esophagitis presence not specified Qualified Code(s): K21.9 - Gastro-esophageal reflux disease without esophagitis (3) CAD (coronary artery disease) Priority: Primary Status: Chronic Qualifiers: Coronary Disease-Associated Artery/Lesion type: [place] artery [place] vs. transplanted heart: [place] heart Associated angina: with unstable angina Qualified Code(s): I25.110 - Atherosclerotic heart disease of [place] coronary artery with unstable angina pectoris (4) Diabetes Priority: Secondary Status: Chronic Qualifiers: Diabetes mellitus type: type 2 Diabetes mellitus correction insulin use: with power plant manager use Diabetes mellitus complication status: without complication Qualified Code(s): E11.9 - Type 2 diabetes mellitus without complications; Z79.4 - air conditioning sheet metal installer (current) use of insulin (5) Hypertension Priority: Secondary Status: Chronic Qualifiers: Hypertension type: essential hypertension Qualified Code(s): I10 - Essential (primary) hypertension (6) Hyperlipidemia Priority: Secondary Status: Chronic Qualifiers: Hyperlipidemia type: mixed hyperlipidemia Qualified Code(s): E78.2 - Mixed hyperlipidemia Hospital course: HOSPITAL COURSE: The patient is a 72-year-old woman. She has underlying coronary artery disease as well as type 2 diabetes mellitus and hypertension. We admitted her with substernal chest pain. The patient had a cardiac catheterization only 10 days before this admission. Her EKG at admission was normal. The first 3 sets of cardiac enzymes were normal, too. Then, the fourth one showed troponin of 0.58. Cardiology was consulted. From the very beginning this patient was treated with IV nitroglycerin and IV heparin drip. She was also treated with Lopressor, Lipitor and aspirin. She underwent cardiac catheterization. 2 stents were put into her coronaries: into proximal LAD and into proximal first marginal. The patient continues to have anterior chest pain after cardiac catheterization. It was burning in quality; with radiation to the mid back. Putting her on I mdur did not help with that problem. Eventually, after starting her on by mouth Prilosec and giving her a GI cocktail the pain subsided. The patient has underlying GERD. It looks like it got exacerbated after the cardiac catheterization. CONDITION AT DISCHARGE: The patient feels good. She is pain-free. Her breathing is normal. She can ambulate on her own without difficulties. Skin: Free of rash and discoloration. Respiratory: Normal breath sounds with no crackles and wheezes bilaterally. CV: Heart is regular with no gallop or murmur. GI: Abdomen is flat and soft with no palpable mass or visceromegaly. Neuro exam: There is no focal deficits. Normal speech, swallowing and gait. SEE DISCHARGE ORDERS/MEDICATIONS.. Discharge discussed with: patient, family, nurse, social work - Time Spent with Patient Total time spent providing and/or coordinating discharge services: Greater than 30 minutes (40 minutes..) - Discharge Medications Prescriptions: GI Cocktail [Gi Cocktail] 40 ml PO Q6H PRN #500 mls PRN Reason: Heartburn Home Medications: Meloxicam 15 mg PO DAILY 03/14/16 [History] Omeprazole [PriLOSEC] 40 mg PO DAILY 03/14/16 [History] Aspirin 81 mg PO DAILY #90 tab.chew 03/18/16 [Rx] Trazodone HCl 200 mg PO HS 01/01/18 [History] glipiZIDE [Glipizide] 10 mg PO BID 01/01/18 [History] metFORMIN [Glucophage] 1,000 mg PO BIDWM 01/01/18 [History] Cholestyramine 4 gm PO BIDAC #60 powd.pack 01/04/18 [Rx] Clopidogrel [Plavix] 75 mg PO DAILY #30 tablet 01/04/18 [Rx] Metoprolol Tartrate [Lopressor] 50 mg PO BID #0 01/04/18 [Rx] Nitroglycerin 0.4 mg SL Q5MIN PRN #30 tab.subl 01/04/18 [Rx] amLODIPine [Norvasc] 5 mg PO DAILY #30 tablet 01/04/18 [Rx] GI Cocktail [Gi Cocktail] 40 ml PO Q6H PRN #500 mls 01/13/18 [Rx] traZODone [TraZODone] 200 mg PO HS tablet 01/13/18 [Rx] Allergies/Adverse Reactions: Allergy/AdvReac Type Severity Reaction Status Date / Time nitrofurantoin Allergy Hives Verified 03/14/16 06:22 [From Macrodantin] Penicillins Allergy Hives Verified 03/14/16 06:22 Date of admission: 01/11/18 02:01 Primary care physician: Madai Guevara CNP Consults: 01/11/18 01:43 Consult to Cardiology [CONS] Stat Comment: Consulting Provider: Cardiology [facility] Reason for Consult: recent stent placement 1 week ago chest pain. no acute ST changes, negative trop Call Completed: No 01/11/18 16:00 Consult to Cardiac Rehabilitation-Phase1 [CONS] Routine Comment: Reason for Consult: post op PCI Call Completed: Yes Discharging clinician: Delgado Hein Anticipated date of discharge: 01/13/18 - Constitutional Vitals: Temp Pulse Resp BP Pulse Ox 97.8 F 60 17 109/72 97 01/13/18 15:32 01/13/18 15:32 01/13/18 15:32 01/13/18 15:32 01/13/18 15:32 General appearance: Present: cooperative, A&O X 3, pleasant, answers questions appropriately Exam: xx - Patient Status Disposition: Home, Self-Care Condition: Good Functional capacity at discharge: independent ambulation Overall status at discharge: patient is back to baseline - Discharge Instructions Instructions: Chest Pain (DC), Gastroesophageal Reflux Disease (GEN) Follow Up With: Madai Guevara CNP [Primary Care Provider] - (appt requested) Allison Perez [Partnered Physician] - Additional Instructions: FOLLOW-UP WITH CARDIOLOGY IN 2-3 WEEKS.. - Diet and Activity Activity: increase activity as tolerated Diet: diabetic diet - VTE Deep Vein Thrombosis/Pulmonary Embolism Present on Admission: No
--- NOTE | 2018-01-13 17:43 | Electrocardiograph Report ---
[address] [place], [place] [address] Test Date: 2018-01-13 Pat Name: Deann Jones Department: 111 Room: [facility] Gender: F Syrup Mixer: RAW : 1945 Requested By: [id number] Order Number: [id number] Reading MD: Kaye Buchanan Measurements Intervals [place] Rate: 63 P: 23 WV: 186 QRS: -40 QRSD: 98 T: 90 QT: 435 QTc: 442 Interpretive Statements SINUS RHYTHM LEFT AXIS DEVIATION NONSPECIFIC ST-WAVE ABNORMALITY Electronically Signed On 01-13-2018 17:41:33 EST by Kaye Buchanan
[2018-01-14] MEDS ORDERED: Isosorbide MONOnitrate (24 HR) 30 MG TAB.ER.24H PO SCH (09:00)
== END 2018-01-13 17:12 | disposition home or self-care (01) ==
LOC: 2NENU 00:14 → EMEROOARM 00:14 → SUATTDRO 02:01 → 2NENU 02:53
PROVIDERS: ADMIT Internal Medicine; ATTEND Internal Medicine

== ENCOUNTER 2020-10-23 01:38 | Observation (INO) ==
[2020-10-23 02:46] LABS: Immature Granulocytes % 0.5 % (0-4)
[2020-10-23 02:48] LABS: Basophils % 0.5 %; Eosinophils # 0.2 K/mcL (0.0-0.6); Hematocrit 27.2 % (35.3-44.9); Hemoglobin 7.5 g/dL (11.5-15.4); Lymphocytes # 1.3 K/mcL (0.6-4.6); Lymphocytes % 22.9 %; Mean Corpuscular HGB Conc 27.6 g/dL (31.6-35.5); Mean Corpuscular Hemoglobin 20.6 pg (28.0-33.3); Mean Corpuscular Volume 74.7 fL (83.0-100.0); Monocytes # 0.3 K/mcL (0.0-1.3); Monocytes % 5.9 %; Neutrophils # 3.8 K/mcL (1.6-8.9); Platelet Count 224 K/mcL (140-400); Red Blood Count 3.64 M/mcL (3.82-4.97); Red Cell Distribution Width 17.5 % (11.5-14.5); Segmented Neutrophils % 67.2 %; White Blood Count 5.6 K/mcL (4.3-11.1)
[2020-10-23 03:10] LABS: BUN/Creatinine Ratio 29 (6-26); Blood Urea Nitrogen 33 mg/dL (8-23); Calcium 9.6 mg/dL (8.6-10.3); Carbon Dioxide 27 mEq/L (23-29); Chloride 101 mEq/L (98-107); Glucose 216 mg/dL (70-105); Osmolality,Calculated 298 (280-300); Potassium 4.2 mEq/L (3.5-5.1); Sodium 137 mEq/L (136-145); eGFR For African Americans 57 (> 60); eGFR For Non-African Americans 47 (> 60)
[2020-10-23 03:18] LABS: Troponin I < 0.03 ng/mL (< 0.04)
[2020-10-23 04:13] LABS: Anisocytosis 2+ (Not Present)
[2020-10-23 04:14] LABS: Hypochromasia Present (Not Present); Ovalocytes 1+ (Not Present); Platelet Estimate Normal (Normal); Poikilocytosis 1+ (Not Present)
[2020-10-23] MEDS ORDERED: Nitroglycerin 0.4 MG TAB.SUBL SL ONE (05:56)
[2020-10-23] MEDS ORDERED: Pantoprazole 80 MG in 0.9 % Sodium Chloride 50 ML IVPB ONE (07:11)
[2020-10-23] MEDS ORDERED: Naloxone 0.4 MG/ML INJ IVP PRN (07:12)
[2020-10-23] MEDS ORDERED: Ondansetron 4 MG/2 ML VIAL IVP PRN (07:12)
[2020-10-23] MEDS ORDERED: Perflutren Lipid Microsphere 1.3 ML in 0.9 % Sodium Chloride 8.7 ML IVP PRN (07:15)
[2020-10-23] MEDS ORDERED: *HR* Dextrose 50 % in Water (Vial) 50 ML VIAL IVP PRN (07:18)
[2020-10-23] MEDS ORDERED: D5% in Water 1,000 ML IVC PRN (07:18)
[2020-10-23] MEDS ORDERED: Dextrose Gel 15 GM/37.5 ML TUBE PO PRN ×2 (07:18)
[2020-10-23] MEDS ORDERED: Morphine Sulfate 2 MG/ML SYRINGE IVP PRN (08:03)
[2020-10-23] MEDS ORDERED: Nitroglycerin 0.4 MG TAB.SUBL SL PRN (08:03)
[2020-10-23 08:49] LABS: % Iron Saturation 2 % (15-50); Iron 12 mcg/dL (50-170); Transferrin 374 mg/dL (203-362)
[2020-10-23 09:11] LABS: Ferritin < 8 ng/mL (10-120)
[2020-10-23 09:18] LABS: Folate 11.2 ng/mL (3.0-16.0)
[2020-10-23] MEDS: Insulin LISPRO 300 UNITS/3 ML VIAL SUBQ SCH ×3 (09:43→16:54)
[2020-10-23] MEDS: Acetaminophen 325 MG TABLET PO PRN (10:09)
[2020-10-23] MEDS: Isosorbide MONOnitrate (24 HR) 60 MG TAB.ER.24H PO SCH (10:09)
[2020-10-23] MEDS: Aspirin Enteric Coated 81 MG Tablet PO SCH (10:10)
[2020-10-23] MEDS ORDERED: 0.9 % Sodium Chloride 250 ML ONE (10:15)
[2020-10-23] MEDS: Ranolazine 500 MG TAB.ER.12H PO SCH ×2 (10:17→21:15)
[2020-10-23] MEDS: Pantoprazole 40 MG VIAL IVP SCH (17:56)
[2020-10-23] MEDS ORDERED: *HR* Metoprolol 5 MG/5 ML VIAL IVP ONE (20:45)
[2020-10-23] MEDS ORDERED: Insulin LISPRO 300 UNITS/3 ML VIAL SUBQ SCH (21:00)
[2020-10-24 01:29] LABS: Basophils % 0.6 %; Eosinophils # 0.2 K/mcL (0.0-0.6); Hematocrit 28.9 % (35.3-44.9); Hemoglobin 8.5 g/dL (11.5-15.4); Immature Granulocytes % 0.4 % (0-4); Lymphocytes # 1.4 K/mcL (0.6-4.6); Mean Corpuscular HGB Conc 29.4 g/dL (31.6-35.5); Mean Corpuscular Hemoglobin 22.1 pg (28.0-33.3); Mean Corpuscular Volume 75.3 fL (83.0-100.0); Mean Platelet Volume 8.8 fL (9.4-12.4); Monocytes # 0.4 K/mcL (0.0-1.3); Monocytes % 8.2 %; Neutrophils # 3.3 K/mcL (1.6-8.9); Platelet Count 187 K/mcL (140-400); Red Blood Count 3.84 M/mcL (3.82-4.97); Red Cell Distribution Width 18.9 % (11.5-14.5); Segmented Neutrophils % 61.8 %; White Blood Count 5.4 K/mcL (4.3-11.1)
[2020-10-24 01:51] LABS: BUN/Creatinine Ratio 25 (6-26); Blood Urea Nitrogen 27 mg/dL (8-23); Carbon Dioxide 24 mEq/L (23-29); Chloride 102 mEq/L (98-107); Glucose 199 mg/dL (70-105); Magnesium 1.3 mg/dL (1.6-2.6); Osmolality,Calculated 293 (280-300); Potassium 3.8 mEq/L (3.5-5.1); Sodium 136 mEq/L (136-145); eGFR For African Americans > 60 (> 60); eGFR For Non-African Americans 50 (> 60)
[2020-10-24] MEDS: Pantoprazole 40 MG VIAL IVP SCH (05:37)
[2020-10-24] MEDS: Insulin LISPRO 300 UNITS/3 ML VIAL SUBQ SCH ×2 (07:06→12:23)
[2020-10-24 07:47] VITALS: O2SAT 94
[2020-10-24] MEDS: Isosorbide MONOnitrate (24 HR) 60 MG TAB.ER.24H PO SCH (07:51)
[2020-10-24] MEDS: Ranolazine 500 MG TAB.ER.12H PO SCH (07:51)
[2020-10-24] MEDS: Aspirin Enteric Coated 81 MG Tablet PO SCH (07:51)
[2020-10-24] MEDS: Acetaminophen 325 MG TABLET PO PRN (10:14)
[2020-10-24 10:30] VITALS: BP 137/75; PULSE 82; TEMP 98.3
[2020-10-24] MEDS ORDERED: *HR* OxyCODONE/APAP 7.5/325 TABLET PO PRN (12:01)
[2020-10-24] MEDS ORDERED: rOPINIRole 1 MG TABLET PO SCH (21:00)
[2020-10-25] MEDS ORDERED: Multivit/Ca/Min/Fe/FA 1 TAB TABLET PO SCH (09:00)
== END 2020-10-24 15:38 | disposition home or self-care (01) ==
LOC: 2ANU 01:38 → EMEROOARM 01:38 → SUATTDRO 07:52 → 2ANU 08:59
PROVIDERS: ADMIT Student in an Organized Health Care Education/Training Program; ATTEND Internal Medicine
PROC: ENDOEBX (2020-10-24 13:00)

== ENCOUNTER 2021-06-19 12:21 | Inpatient (IN) ==
[2021-06-19] MEDS ORDERED: Aspirin 81 MG TAB.CHEW PO ONE (12:38)
[2021-06-19] MEDS ORDERED: Aspirin 81 MG TAB.CHEW ONE (12:39)
[2021-06-19] MEDS ORDERED: Nitroglycerin 1,000 MCG/5 ML VIAL IV ONE (12:42)
[2021-06-19] MEDS ORDERED: 0.9 % Sodium Chloride 1,000 ML ONE ×3 (12:42→14:16)
[2021-06-19] MEDS ORDERED: Heparin 1,000 UNITS/500 mL 500 ML ONE ×2 (12:42→13:37)
[2021-06-19] MEDS ORDERED: ISOVUE-370 200 ML INFUS..BTL ONE ×2 (12:42→13:18)
[2021-06-19] MEDS ORDERED: *HR* Heparin 10,000 UNIT/10 ML VIAL ONE ×2 (12:42→12:44)
[2021-06-19] MEDS ORDERED: *HR* Heparin 5,000 UNIT/ML VIAL IVP ONE (12:43)
[2021-06-19] MEDS ORDERED: *HR* Heparin 5,000 UNIT/ML VIAL IVP PRN ×2 (12:43)
[2021-06-19] MEDS ORDERED: *HR* Heparin 5,000 UNIT/ML VIAL ONE (12:44)
[2021-06-19] MEDS ORDERED: Heparin 25,000UNIT/250ML 1/2NS 25,000 UNIT/250 ML IV.SOLN IVC SCH (12:45)
[2021-06-19] MEDS ORDERED: Morphine Sulfate 2 MG/ML SYRINGE IVP ONE (12:45)
[2021-06-19] MEDS ORDERED: *HR* FentaNYL (PF) 100 MCG/2 ML VIAL ONE (12:54)
[2021-06-19] MEDS ORDERED: *HR* Midazolam HCl 2 MG/2 ML VIAL ONE ×2 (12:54→13:35)
[2021-06-19 12:57] LABS: Basophils % 0.5 %; Eosinophils # 0.2 K/mcL (0.0-0.6); Eosinophils % 2.2 %; Hematocrit 35.6 % (35.3-44.9); Hemoglobin 10.7 g/dL (11.5-15.4); Immature Granulocytes % 0.6 % (0-4); Lymphocytes # 1.8 K/mcL (0.6-4.6); Lymphocytes % 21.2 %; Mean Corpuscular HGB Conc 30.1 g/dL (31.6-35.5); Mean Corpuscular Hemoglobin 24.7 pg (28.0-33.3); Mean Corpuscular Volume 82.2 fL (83.0-100.0); Mean Platelet Volume 8.8 fL (9.4-12.4); Monocytes # 0.5 K/mcL (0.0-1.3); Monocytes % 5.5 %; Neutrophils # 5.8 K/mcL (1.6-8.9); Platelet Count 248 K/mcL (140-400); Red Blood Count 4.33 M/mcL (3.82-4.97); Red Cell Distribution Width 15.6 % (11.5-14.5); White Blood Count 8.3 K/mcL (4.3-11.1)
[2021-06-19] MEDS ORDERED: Tirofiban 12.5 MG/250ML 12.5 MG/250 ML BAG ONE (12:58)
[2021-06-19] MEDS ORDERED: Ondansetron 4 MG/2 ML VIAL ONE (13:04)
[2021-06-19 13:05] LABS: Heparin anti-factor XA UFH < 0.04 IU/mL (0.30-0.70); Prothrombin Time 11.5 Seconds (9.4-12.1)
[2021-06-19 13:08] LABS: Activated Partial Thrombo Time 28.2 Seconds (26.0-36.0)
[2021-06-19 13:24] LABS: BUN/Creatinine Ratio 29 (6-26); Blood Urea Nitrogen 29 mg/dL (8-23); Calcium 9.7 mg/dL (8.6-10.3); Carbon Dioxide 27 mEq/L (23-29); Chloride 96 mEq/L (98-107); Glucose 246 mg/dL (70-105); Magnesium 1.4 mg/dL (1.6-2.6); Osmolality,Calculated 294 (280-300); Potassium 3.9 mEq/L (3.5-5.1); Sodium 135 mEq/L (136-145); Troponin I 0.06 ng/mL (< 0.04); eGFR For African Americans > 60 (> 60); eGFR For Non-African Americans 54 (> 60)
[2021-06-19] MEDS ORDERED: Naloxone 0.4 MG/ML INJ IVP PRN (14:03)
[2021-06-19] MEDS ORDERED: Perflutren Lipid Microsphere 1.3 ML in 0.9 % Sodium Chloride 8.7 ML IVP PRN (14:03)
[2021-06-19] MEDS: *HR* OxyCODONE/APAP 5/325 TABLET PO PRN (14:42)
[2021-06-19] MEDS ORDERED: *HR* Dextrose 50 % in Water (Syg) 50 ML SYRINGE IVP PRN (15:05)
[2021-06-19] MEDS ORDERED: D5% in Water 1,000 ML IVC PRN (15:05)
[2021-06-19] MEDS ORDERED: Dextrose 4 GM Chewable Tablets PO PRN ×2 (15:05)
[2021-06-19] MEDS ORDERED: *HR* OxyCODONE/APAP 5/325 TABLET PO ONE (17:09)
[2021-06-19] MEDS: Insulin LISPRO 300 UNITS/3 ML VIAL SUBQ SCH (20:42)
[2021-06-20 05:38] LABS: Basophils % 0.5 %; Eosinophils # 0.2 K/mcL (0.0-0.6); Hematocrit 34.2 % (35.3-44.9); Hemoglobin 10.4 g/dL (11.5-15.4); Immature Granulocytes % 0.3 % (0-4); Lymphocytes # 1.2 K/mcL (0.6-4.6); Lymphocytes % 19.3 %; Mean Corpuscular HGB Conc 30.4 g/dL (31.6-35.5); Mean Corpuscular Hemoglobin 24.8 pg (28.0-33.3); Mean Corpuscular Volume 81.6 fL (83.0-100.0); Mean Platelet Volume 8.9 fL (9.4-12.4); Monocytes # 0.6 K/mcL (0.0-1.3); Neutrophils # 4.1 K/mcL (1.6-8.9); Platelet Count 201 K/mcL (140-400); Red Blood Count 4.19 M/mcL (3.82-4.97); Red Cell Distribution Width 15.7 % (11.5-14.5); Segmented Neutrophils % 67.9 %; White Blood Count 6.1 K/mcL (4.3-11.1)
[2021-06-20 05:54] LABS: BUN/Creatinine Ratio 22 (6-26); Blood Urea Nitrogen 17 mg/dL (8-23); Calcium 8.9 mg/dL (8.6-10.3); Carbon Dioxide 29 mEq/L (23-29); Chloride 101 mEq/L (98-107); Glucose 100 mg/dL (70-105); Osmolality,Calculated 286 (280-300); Potassium 3.7 mEq/L (3.5-5.1); Sodium 137 mEq/L (136-145); eGFR For African Americans > 60 (> 60); eGFR For Non-African Americans > 60 (> 60)
[2021-06-20 09:05] LABS: Estimated Average Glucose 194 mg/dl; Hemoglobin A1C 8.4 %
[2021-06-20] MEDS: Aspirin 81 MG TAB.CHEW PO SCH (09:53)
[2021-06-20] MEDS: Insulin LISPRO 300 UNITS/3 ML VIAL SUBQ SCH ×3 (09:53→18:43)
[2021-06-20 10:06] LABS: Troponin I 4.38 ng/mL (< 0.04)
[2021-06-20] MEDS: *HR* OxyCODONE/APAP 5/325 TABLET PO PRN (11:42)
[2021-06-20] MEDS: Acetaminophen 325 MG TABLET PO PRN ×2 (15:09→23:30)
[2021-06-21 08:28] LABS: Basophils % 0.5 %; Eosinophils # 0.2 K/mcL (0.0-0.6); Eosinophils % 3.9 %; Hematocrit 32.1 % (35.3-44.9); Hemoglobin 9.7 g/dL (11.5-15.4); Immature Granulocytes % 0.5 % (0-4); Lymphocytes # 1.1 K/mcL (0.6-4.6); Lymphocytes % 19.9 %; Mean Corpuscular HGB Conc 30.2 g/dL (31.6-35.5); Mean Corpuscular Hemoglobin 24.3 pg (28.0-33.3); Mean Corpuscular Volume 80.3 fL (83.0-100.0); Mean Platelet Volume 8.9 fL (9.4-12.4); Monocytes # 0.4 K/mcL (0.0-1.3); Monocytes % 7.2 %; Neutrophils # 3.8 K/mcL (1.6-8.9); Platelet Count 192 K/mcL (140-400); Red Cell Distribution Width 15.5 % (11.5-14.5); White Blood Count 5.6 K/mcL (4.3-11.1)
[2021-06-21 08:44] LABS: BUN/Creatinine Ratio 20 (6-26); Blood Urea Nitrogen 16 mg/dL (8-23); Calcium 9.2 mg/dL (8.6-10.3); Carbon Dioxide 30 mEq/L (23-29); Chloride 97 mEq/L (98-107); Glucose 234 mg/dL (70-105); Osmolality,Calculated 287 (280-300); Potassium 3.7 mEq/L (3.5-5.1); Sodium 134 mEq/L (136-145); eGFR For African Americans > 60 (> 60); eGFR For Non-African Americans > 60 (> 60)
[2021-06-21] MEDS: Aspirin 81 MG TAB.CHEW PO SCH (09:44)
[2021-06-21] MEDS: Insulin LISPRO 300 UNITS/3 ML VIAL SUBQ SCH ×2 (09:44→11:57)
[2021-06-21 11:50] VITALS: BP 107/74; PULSE 72; TEMP 97.8; O2SAT 98
== END 2021-06-21 13:50 | disposition home or self-care (01) | DRG 247 ==
LOC: EMEROOARM 12:21 → ICNU 12:57 → 2NNU 17:33
PROVIDERS: ADMIT Internal Medicine; ATTEND Internal Medicine

== ENCOUNTER 2021-07-04 16:56 | Observation (INO) ==
[2021-07-04 17:34] LABS: Basophils % 0.4 %; Eosinophils # 0.2 K/mcL (0.0-0.6); Eosinophils % 2.2 %; Hematocrit 31.5 % (35.3-44.9); Hemoglobin 9.8 g/dL (11.5-15.4); Immature Granulocytes % 0.7 % (0-4); Lymphocytes # 1.8 K/mcL (0.6-4.6); Lymphocytes % 21.2 %; Mean Corpuscular HGB Conc 31.1 g/dL (31.6-35.5); Mean Corpuscular Hemoglobin 25.1 pg (28.0-33.3); Mean Corpuscular Volume 80.8 fL (83.0-100.0); Mean Platelet Volume 8.6 fL (9.4-12.4); Monocytes # 0.5 K/mcL (0.0-1.3); Monocytes % 5.7 %; Platelet Count 257 K/mcL (140-400); Red Cell Distribution Width 15.7 % (11.5-14.5); Segmented Neutrophils % 69.8 %; White Blood Count 8.6 K/mcL (4.3-11.1)
[2021-07-04 17:42] LABS: INR 1.1; Prothrombin Time 11.7 Seconds (9.4-12.1)
[2021-07-04 17:44] LABS: Activated Partial Thrombo Time 29.2 Seconds (26.0-36.0)
[2021-07-04] MEDS: Nitroglycerin 0.4 MG TAB.SUBL SL PRN ×2 (17:44→17:49)
[2021-07-04 17:54] LABS: Alanine Aminotransferase 6 Units/L (7-52); Albumin 3.9 g/dL (3.5-5.7); Albumin/Globulin Ratio 1.4 (1.1-2.2); Alkaline Phosphatase 66 Units/L (34-104); Aspartate Amino Transferase 14 Units/L (13-39); BUN/Creatinine Ratio 26 (6-26); Bilirubin,Indirect 0.3 mg/dL (0.0-1.0); Bilirubin,Total 0.3 mg/dL (0.3-1.0); Blood Urea Nitrogen 35 mg/dL (8-23); Calcium 9.6 mg/dL (8.6-10.3); Carbon Dioxide 27 mEq/L (23-29); Chloride 93 mEq/L (98-107); Globulin 2.8 g/dL (2.4-3.5); Glucose 342 mg/dL (70-105); Lipase 41 Units/L (11-82); Osmolality,Calculated 298 (280-300); Potassium 3.8 mEq/L (3.5-5.1); Sodium 133 mEq/L (136-145); Total Protein 6.7 g/dL (6.4-8.9); Troponin I < 0.03 ng/mL (< 0.04); eGFR For African Americans 47 (> 60); eGFR For Non-African Americans 39 (> 60)
[2021-07-04] MEDS ORDERED: 0.9 % Sodium Chloride 1,000 ML IV ONE (17:55)
[2021-07-04] MEDS ORDERED: Isovue-370 500 ML BOTTLE IVP ONE (18:28)
[2021-07-04 20:01] LABS: Adenovirus Not Detected (Not Detect); Bordetella Pertussis Not Detected (Not Detect); Chlamydophila pneumoniae Not Detected (Not Detect); Coronavirus 229E Not Detected (Not Detect); Coronavirus HKU1 Not Detected (Not Detect); Coronavirus NL63 Not Detected (Not Detect); Coronavirus OC43 Not Detected (Not Detect); Human Metapneumovirus Not Detected (Not Detect); Human Rhinovirus/Enterovirus Not Detected (Not Detect); Influenza A Subtype 2009 H1 Not Detected (Not Detect); Influenza B Not Detected (Not Detect); Mycoplasma pneumoniae Not Detected (Not Detect); Parainfluenza Virus 1 Not Detected (Not Detect); Parainfluenza Virus 2 Not Detected (Not Detect); Parainfluenza Virus 3 Not Detected (Not Detect); Parainfluenza Virus 4 Not Detected (Not Detect); Respiratory Syncytial Virus Not Detected (Not Detect); SARS-CoV-2 Not Detected (Not Detect)
[2021-07-04] MEDS ORDERED: *HR* FentaNYL (PF) 100 MCG/2 ML VIAL IVP ONE (20:18)
[2021-07-04] MEDS ORDERED: Aspirin 325 MG TABLET PO ONE (20:34)
[2021-07-04] MEDS ORDERED: Naloxone 0.4 MG/ML INJ IVP PRN (20:49)
[2021-07-04] MEDS ORDERED: Ondansetron ODT 4 MG TAB.RAPDIS SL PRN (20:49)
[2021-07-04] MEDS ORDERED: *HR* OxyCODONE Immed Rel 5 MG TABLET PO PRN (20:49)
[2021-07-04] MEDS ORDERED: D5% in Water 1,000 ML IVC PRN (20:53)
[2021-07-04] MEDS ORDERED: Dextrose 4 GM Chewable Tablets PO PRN ×2 (20:53)
[2021-07-04] MEDS ORDERED: *HR* Dextrose 50 % in Water (Syg) 50 ML SYRINGE IVP PRN (20:53)
[2021-07-04] MEDS: 0.9 % Sodium Chloride 1,000 ML IVC SCH (22:33)
[2021-07-05 01:20] LABS: Hematocrit 32.7 % (35.3-44.9); Hemoglobin 9.6 g/dL (11.5-15.4); Mean Corpuscular HGB Conc 29.4 g/dL (31.6-35.5); Mean Corpuscular Hemoglobin 24.2 pg (28.0-33.3); Mean Corpuscular Volume 82.4 fL (83.0-100.0); Mean Platelet Volume 8.7 fL (9.4-12.4); Platelet Count 267 K/mcL (140-400); Red Blood Count 3.97 M/mcL (3.82-4.97); Red Cell Distribution Width 15.6 % (11.5-14.5); White Blood Count 7.1 K/mcL (4.3-11.1)
[2021-07-05] MEDS: Insulin LISPRO 300 UNITS/3 ML VIAL SUBQ SCH ×5 (01:44→20:35)
[2021-07-05] MEDS ORDERED: *HR* Heparin 5,000 UNIT/ML VIAL IVP ONE (01:56)
[2021-07-05] MEDS ORDERED: *HR* Heparin 5,000 UNIT/ML VIAL IVP PRN ×2 (01:56)
[2021-07-05 02:04] LABS: Thyroid Stimulating Hormone 4.187 mcIU/mL (0.340-5.600)
[2021-07-05 02:13] LABS: BUN/Creatinine Ratio 24 (6-26); Blood Urea Nitrogen 25 mg/dL (8-23); Calcium 9.2 mg/dL (8.6-10.3); Carbon Dioxide 28 mEq/L (23-29); Chloride 98 mEq/L (98-107); Chol/HDL Ratio 4.5 (0-4.9); Cholesterol 199 mg/dL (< 200); Glucose 212 mg/dL (70-105); HDL Cholesterol 44 mg/dL (40-59); LDL Cholesterol,Calculated 105 mg/dL (< 100); Magnesium 1.4 mg/dL (1.6-2.6); Osmolality,Calculated 293 (280-300); Phosphorous 2.9 mg/dL (2.7-4.5); Potassium 3.9 mEq/L (3.5-5.1); Sodium 136 mEq/L (136-145); Triglycerides 251 mg/dL (< 150); eGFR For African Americans > 60 (> 60); eGFR For Non-African Americans 52 (> 60)
[2021-07-05] MEDS: Acetaminophen 325 MG TABLET PO PRN (02:34)
[2021-07-05 02:37] LABS: Estimated Average Glucose 197 mg/dl; Hemoglobin A1C 8.5 %
[2021-07-05 02:40] LABS: Hematocrit 28.6 % (35.3-44.9); Hemoglobin 8.5 g/dL (11.5-15.4); Mean Corpuscular HGB Conc 29.7 g/dL (31.6-35.5); Mean Corpuscular Hemoglobin 24.3 pg (28.0-33.3); Mean Corpuscular Volume 81.7 fL (83.0-100.0); Mean Platelet Volume 8.4 fL (9.4-12.4); Platelet Count 218 K/mcL (140-400); Red Cell Distribution Width 15.4 % (11.5-14.5); White Blood Count 6.1 K/mcL (4.3-11.1)
[2021-07-05 02:49] LABS: INR 1.1; Prothrombin Time 12.1 Seconds (9.4-12.1)
[2021-07-05 02:51] LABS: Heparin anti-factor XA UFH < 0.04 IU/mL (0.30-0.70)
[2021-07-05] MEDS: Heparin 25,000UNIT/250ML 1/2NS 25,000 UNIT/250 ML IV.SOLN IVC SCH (03:30)
[2021-07-05] MEDS: 0.9 % Sodium Chloride 1,000 ML IVC SCH (08:20)
[2021-07-05] MEDS ORDERED: Ibuprofen 600 MG TABLET PO ONE (09:34)
[2021-07-05] MEDS: Aspirin Enteric Coated 81 MG Tablet PO SCH (10:13)
[2021-07-05] MEDS: Isosorbide MONOnitrate (24 HR) 60 MG TAB.ER.24H PO SCH (11:19)
[2021-07-05] MEDS: rOPINIRole 1 MG TABLET PO SCH (20:29)
[2021-07-05] MEDS: *HR* HYDROcodone/Acet 5/325 mg TABLET PO PRN (20:29)
[2021-07-05] MEDS: Melatonin 3 MG TABLET PO PRN (20:30)
[2021-07-05] MEDS: Insulin DETEMIR 100 UNIT/ML X5UNITS SUBQ SCH (20:36)
[2021-07-06 05:05] LABS: BUN/Creatinine Ratio 23 (6-26); Blood Urea Nitrogen 19 mg/dL (8-23); Calcium 9.1 mg/dL (8.6-10.3); Carbon Dioxide 29 mEq/L (23-29); Chloride 100 mEq/L (98-107); Glucose 186 mg/dL (70-105); Magnesium 1.7 mg/dL (1.6-2.6); Osmolality,Calculated 289 (280-300); Potassium 3.8 mEq/L (3.5-5.1); Sodium 136 mEq/L (136-145); eGFR For African Americans > 60 (> 60); eGFR For Non-African Americans > 60 (> 60)
[2021-07-06] MEDS: Insulin LISPRO 300 UNITS/3 ML VIAL SUBQ SCH ×4 (08:15→21:00)
[2021-07-06] MEDS: Isosorbide MONOnitrate (24 HR) 60 MG TAB.ER.24H PO SCH (08:16)
[2021-07-06] MEDS: Aspirin Enteric Coated 81 MG Tablet PO SCH (08:16)
[2021-07-06] MEDS: Metoprolol XL (24 HR) Succ 50 MG TAB.ER.24H PO SCH (08:16)
[2021-07-06] MEDS ORDERED: Triamterene/HCTZ 75/50 mg TABLET PO SCH (09:00)
[2021-07-06] MEDS: Heparin 25,000UNIT/250ML 1/2NS 25,000 UNIT/250 ML IV.SOLN IVC SCH (10:13)
[2021-07-06] MEDS: *HR* HYDROcodone/Acet 5/325 mg TABLET PO PRN ×2 (12:08→21:00)
[2021-07-06] MEDS: rOPINIRole 1 MG TABLET PO SCH (21:00)
[2021-07-06] MEDS: Insulin DETEMIR 100 UNIT/ML X5UNITS SUBQ SCH (21:01)
[2021-07-06] MEDS: Melatonin 3 MG TABLET PO PRN (21:05)
[2021-07-07] MEDS: Insulin LISPRO 300 UNITS/3 ML VIAL SUBQ SCH ×4 (08:00→21:11)
[2021-07-07] MEDS ORDERED: Regadenoson 0.4 MG/5 ML SYRINGE IVP ONE (08:08)
[2021-07-07 08:32] LABS: Basophils # 0.1 K/mcL (0.0-0.2); Basophils % 0.7 %; Eosinophils # 0.4 K/mcL (0.0-0.6); Eosinophils % 5.7 %; Hematocrit 35.4 % (35.3-44.9); Hemoglobin 10.6 g/dL (11.5-15.4); Immature Granulocytes % 0.7 % (0-4); Lymphocytes # 2.2 K/mcL (0.6-4.6); Lymphocytes % 29.6 %; Mean Corpuscular HGB Conc 29.9 g/dL (31.6-35.5); Mean Corpuscular Hemoglobin 24.2 pg (28.0-33.3); Mean Corpuscular Volume 80.8 fL (83.0-100.0); Mean Platelet Volume 8.6 fL (9.4-12.4); Monocytes # 0.5 K/mcL (0.0-1.3); Monocytes % 6.1 %; Neutrophils # 4.2 K/mcL (1.6-8.9); Platelet Count 263 K/mcL (140-400); Red Blood Count 4.38 M/mcL (3.82-4.97); Red Cell Distribution Width 15.4 % (11.5-14.5); Segmented Neutrophils % 57.2 %; White Blood Count 7.3 K/mcL (4.3-11.1)
[2021-07-07 08:51] LABS: BUN/Creatinine Ratio 23 (6-26); Blood Urea Nitrogen 20 mg/dL (8-23); Calcium 9.8 mg/dL (8.6-10.3); Carbon Dioxide 27 mEq/L (23-29); Chloride 97 mEq/L (98-107); Glucose 228 mg/dL (70-105); Osmolality,Calculated 280 (280-300); Potassium 3.9 mEq/L (3.5-5.1); Sodium 130 mEq/L (136-145); eGFR For African Americans > 60 (> 60); eGFR For Non-African Americans > 60 (> 60)
[2021-07-07] MEDS: Aspirin Enteric Coated 81 MG Tablet PO SCH (11:16)
[2021-07-07] MEDS: Metoprolol XL (24 HR) Succ 50 MG TAB.ER.24H PO SCH (11:16)
[2021-07-07] MEDS: *HR* HYDROcodone/Acet 5/325 mg TABLET PO PRN ×2 (11:20→17:32)
[2021-07-07] MEDS: Isosorbide MONOnitrate (24 HR) 60 MG TAB.ER.24H PO SCH (11:50)
[2021-07-07] MEDS: Heparin 25,000UNIT/250ML 1/2NS 25,000 UNIT/250 ML IV.SOLN IVC SCH (14:07)
[2021-07-07] MEDS: Acetaminophen 325 MG TABLET PO PRN (14:31)
[2021-07-07] MEDS: rOPINIRole 1 MG TABLET PO SCH (21:11)
[2021-07-07] MEDS: Insulin DETEMIR 100 UNIT/ML X5UNITS SUBQ SCH (21:12)
[2021-07-07] MEDS: Melatonin 3 MG TABLET PO PRN (21:12)
[2021-07-08] MEDS: *HR* HYDROcodone/Acet 5/325 mg TABLET PO PRN ×2 (03:30→10:47)
[2021-07-08 07:16] VITALS: PULSE 75; O2SAT 93
[2021-07-08] MEDS ORDERED: Insulin DETEMIR 100 UNIT/ML X5UNITS SUBQ ONE (08:09)
[2021-07-08] MEDS: Insulin LISPRO 300 UNITS/3 ML VIAL SUBQ SCH (08:51)
[2021-07-08] MEDS: Isosorbide MONOnitrate (24 HR) 60 MG TAB.ER.24H PO SCH (08:51)
[2021-07-08] MEDS: Aspirin Enteric Coated 81 MG Tablet PO SCH (08:51)
[2021-07-08] MEDS: Metoprolol XL (24 HR) Succ 50 MG TAB.ER.24H PO SCH (08:51)
[2021-07-08 10:46] LABS: Basophils % 0.5 %; Eosinophils # 0.3 K/mcL (0.0-0.6); Eosinophils % 4.3 %; Hematocrit 32.8 % (35.3-44.9); Hemoglobin 9.8 g/dL (11.5-15.4); Immature Granulocytes % 0.5 % (0-4); Lymphocytes # 1.5 K/mcL (0.6-4.6); Lymphocytes % 24.1 %; Mean Corpuscular HGB Conc 29.9 g/dL (31.6-35.5); Mean Corpuscular Volume 80.4 fL (83.0-100.0); Mean Platelet Volume 8.4 fL (9.4-12.4); Monocytes # 0.3 K/mcL (0.0-1.3); Monocytes % 5.3 %; Platelet Count 260 K/mcL (140-400); Red Blood Count 4.08 M/mcL (3.82-4.97); Red Cell Distribution Width 15.3 % (11.5-14.5); Segmented Neutrophils % 65.3 %; White Blood Count 6.1 K/mcL (4.3-11.1)
[2021-07-08] MEDS ORDERED: Ranolazine 500 MG TAB.ER.12H PO SCH (11:00)
[2021-07-08 11:04] LABS: BUN/Creatinine Ratio 22 (6-26); Blood Urea Nitrogen 19 mg/dL (8-23); Calcium 9.5 mg/dL (8.6-10.3); Carbon Dioxide 30 mEq/L (23-29); Chloride 97 mEq/L (98-107); Glucose 267 mg/dL (70-105); Osmolality,Calculated 288 (280-300); Potassium 4.1 mEq/L (3.5-5.1); Sodium 133 mEq/L (136-145); eGFR For African Americans > 60 (> 60); eGFR For Non-African Americans > 60 (> 60)
[2021-07-08 11:07] VITALS: BP 107/68; TEMP 97.6
[2021-07-08] MEDS ORDERED: Insulin DETEMIR 100 UNIT/ML X5UNITS SUBQ SCH (21:00)
== END 2021-07-08 13:42 | disposition home or self-care (01) ==
LOC: 3BNU 16:56 → EMEROOARM 16:56 → SUATTDRO 21:08 → 3BNU 22:02
PROVIDERS: ADMIT Internal Medicine; ATTEND Registered Nurse

== ENCOUNTER 2021-09-02 09:03 | Observation (INO) ==
[2021-09-02] MEDS ORDERED: 0.9 % Sodium Chloride 1,000 ML ONE ×2 (09:16→10:23)
[2021-09-02] MEDS ORDERED: *HR* Midazolam HCl 2 MG/2 ML VIAL ONE (09:53)
[2021-09-02] MEDS ORDERED: *HR* FentaNYL (PF) 100 MCG/2 ML VIAL ONE (09:53)
[2021-09-02] MEDS ORDERED: *HR* Heparin 10,000 UNIT/10 ML VIAL ONE (10:23)
[2021-09-02] MEDS ORDERED: Nitroglycerin 1,000 MCG/5 ML VIAL IV ONE (10:23)
[2021-09-02] MEDS ORDERED: Heparin 1,000 UNITS/500 mL 500 ML ONE (10:23)
[2021-09-02] MEDS ORDERED: Iopamidol - 370 200 ML INFUS..BTL ONE (10:23)
[2021-09-02] MEDS ORDERED: Tirofiban 12.5 MG/250ML 12.5 MG/250 ML BAG ONE (10:42)
[2021-09-02] MEDS ORDERED: Nitroglycerin Spray 4.9 GM BOTTLE ONE (11:00)
[2021-09-02] MEDS ORDERED: Ibuprofen 600 MG TABLET PO ONE (15:15)
[2021-09-02] MEDS ORDERED: Ibuprofen 400 MG TABLET PO ONE (15:15)
[2021-09-02] MEDS: Insulin LISPRO 300 UNITS/3 ML VIAL SUBQ SCH (20:27)
[2021-09-03] MEDS: Insulin LISPRO 300 UNITS/3 ML VIAL SUBQ SCH ×4 (08:42→22:03)
[2021-09-03] MEDS ORDERED: Nitroglycerin 0.4 MG TAB.SUBL SL PRN ×2 (08:51→22:35)
[2021-09-03] MEDS ORDERED: Triamterene/HCTZ 75/50 mg TABLET PO SCH (09:00)
[2021-09-03] MEDS ORDERED: Aspirin Enteric Coated 81 MG Tablet PO SCH (09:00)
[2021-09-03] MEDS ORDERED: NON-FORMULARY MEDICATION 1 EACH EACH (Insulin Glargine,Hum.Rec.Anlog [Basaglar Kwikpen U-1 SQ SCH (09:00)
[2021-09-03] MEDS ORDERED: Isosorbide MONOnitrate (24 HR) 60 MG TAB.ER.24H PO SCH (09:00)
[2021-09-03] MEDS ORDERED: Metoprolol XL (24 HR) Succ 50 MG TAB.ER.24H PO SCH (09:00)
[2021-09-03 12:59] LABS: Hematocrit 32.9 % (35.3-44.9); Hemoglobin 9.9 g/dL (11.5-15.4)
[2021-09-03 13:25] LABS: BUN/Creatinine Ratio 23 (6-26); Blood Urea Nitrogen 21 mg/dL (8-23); Calcium 9.4 mg/dL (8.6-10.3); Carbon Dioxide 28 mEq/L (23-29); Chloride 96 mEq/L (98-107); Glucose 211 mg/dL (70-105); Osmolality,Calculated 283 (280-300); Potassium 4.1 mEq/L (3.5-5.1); Sodium 132 mEq/L (136-145); eGFR For African Americans > 60 (> 60); eGFR For Non-African Americans > 60 (> 60)
[2021-09-03] MEDS ORDERED: *HR* Heparin 5,000 UNIT/ML VIAL IVP ONE (14:26)
[2021-09-03] MEDS ORDERED: *HR* Heparin 5,000 UNIT/ML VIAL IVP PRN ×2 (14:26)
[2021-09-03] MEDS ORDERED: Heparin 25,000UNIT/250ML 1/2NS 25,000 UNIT/250 ML IV.SOLN IVC SCH (14:30)
[2021-09-03] MEDS ORDERED: Lidocaine HCL 4 ML Topical Solution (Laryng-O-Jet Kit Sterile Pak) TP ONE (14:47)
[2021-09-03] MEDS ORDERED: *HR* Succinylcholine 200 MG/10 ML VIAL IVP ONE (14:48)
[2021-09-03] MEDS ORDERED: *HR* FentaNYL (PF) 100 MCG/2 ML VIAL ONE ×2 (14:48→17:33)
[2021-09-03] MEDS ORDERED: *HR* Rocuronium Bromide 50 MG/5 ML VIAL ONE (14:48)
[2021-09-03] MEDS ORDERED: Ondansetron 4 MG/2 ML VIAL ONE (14:48)
[2021-09-03] MEDS ORDERED: Sugammadex Sodium 200 MG/2 ML VIAL IV ONE ×2 (14:48→19:10)
[2021-09-03] MEDS ORDERED: *HR* Propofol 200 MG/20 ML VIAL IVP ONE (14:49)
[2021-09-03] MEDS ORDERED: Bupivacaine-MPF 0.25% 10 ML VIAL ONE (14:49)
[2021-09-03] MEDS ORDERED: Heparin 1,000 UNITS/500 mL 1,000 ML ONE (14:49)
[2021-09-03] MEDS ORDERED: Vancomycin 1,000 MG VIAL ONE (14:50)
[2021-09-03] MEDS ORDERED: *HR* Phenylephrine 10 MG/ML VIAL ONE (14:56)
[2021-09-03 15:22] LABS: Hematocrit 30.7 % (35.3-44.9); Hemoglobin 9.3 g/dL (11.5-15.4); Mean Corpuscular HGB Conc 30.3 g/dL (31.6-35.5); Mean Corpuscular Hemoglobin 23.5 pg (28.0-33.3); Mean Corpuscular Volume 77.5 fL (83.0-100.0); Mean Platelet Volume 8.8 fL (9.4-12.4); Platelet Count 224 K/mcL (140-400); Red Blood Count 3.96 M/mcL (3.82-4.97); Red Cell Distribution Width 16.6 % (11.5-14.5); White Blood Count 5.8 K/mcL (4.3-11.1)
[2021-09-03 15:27] LABS: Heparin anti-factor XA UFH < 0.04 IU/mL (0.30-0.70)
[2021-09-03 15:28] LABS: Prothrombin Time 11.1 Seconds (9.4-12.1)
[2021-09-03] MEDS ORDERED: Heparin 1,000 UNITS/500 mL 0 ML ONE (15:31)
[2021-09-03] MEDS ORDERED: *HR* Midazolam HCl 2 MG/2 ML VIAL ONE (15:54)
[2021-09-03] MEDS ORDERED: *HR* HYDROmorphone PF 0.5 MG/0.5 ML SYRINGE IVP PRN (15:57)
[2021-09-03] MEDS ORDERED: Promethazine 6.25 MG in Water for inj. (sterile) 20 ML IVPB PRN (15:57)
[2021-09-03] MEDS ORDERED: *HR* OxyCODONE Immed Rel 5 MG TABLET PO PRN ×2 (15:57→22:35)
[2021-09-03] MEDS ORDERED: Ondansetron 4 MG/2 ML VIAL IVP PRN ×2 (15:57→22:35)
[2021-09-03] MEDS ORDERED: Clindamycin 900 MG/50 ML 900 MG/50 ML IV.SOLN IVPB ONE ×2 (16:43→23:00)
[2021-09-03] MEDS ORDERED: GlipiZIDE 5 MG TABLET PO SCH (17:00)
[2021-09-03] MEDS ORDERED: *HR* Heparin 5,000 UNIT/ML VIAL ONE ×2 (17:10→18:03)
[2021-09-03] MEDS ORDERED: Insulin Human Regular 5 UNIT in 0.9 % Sodium Chloride 10 ML IV ONE (20:01)
[2021-09-03] MEDS ORDERED: rOPINIRole 1 MG TABLET PO SCH (21:00)
[2021-09-03] MEDS ORDERED: Naloxone 0.4 MG/ML INJ IVP PRN (22:35)
[2021-09-03] MEDS ORDERED: Acetaminophen 325 MG TABLET PO PRN (22:35)
[2021-09-03] MEDS ORDERED: *HR* Labetalol 20 MG/4 ML SYRINGE IVP PRN (22:35)
[2021-09-03] MEDS ORDERED: 0.9 % Sodium Chloride 1,000 ML IVC SCH (22:35)
[2021-09-04 04:36] LABS: Basophils % 0.1 %; Hematocrit 30.6 % (35.3-44.9); Hemoglobin 9.1 g/dL (11.5-15.4); Immature Granulocytes % 0.8 % (0-4); Lymphocytes # 0.8 K/mcL (0.6-4.6); Lymphocytes % 11.2 %; Mean Corpuscular HGB Conc 29.7 g/dL (31.6-35.5); Mean Corpuscular Hemoglobin 23.2 pg (28.0-33.3); Mean Corpuscular Volume 77.9 fL (83.0-100.0); Monocytes # 0.2 K/mcL (0.0-1.3); Monocytes % 2.6 %; Neutrophils # 6.4 K/mcL (1.6-8.9); Platelet Count 207 K/mcL (140-400); Red Blood Count 3.93 M/mcL (3.82-4.97); Red Cell Distribution Width 16.3 % (11.5-14.5); Segmented Neutrophils % 85.3 %; White Blood Count 7.4 K/mcL (4.3-11.1)
[2021-09-04 04:55] LABS: BUN/Creatinine Ratio 23 (6-26); Blood Urea Nitrogen 24 mg/dL (8-23); Calcium 8.8 mg/dL (8.6-10.3); Carbon Dioxide 28 mEq/L (23-29); Chloride 95 mEq/L (98-107); Glucose 315 mg/dL (70-105); Osmolality,Calculated 290 (280-300); Potassium 4.5 mEq/L (3.5-5.1); Sodium 132 mEq/L (136-145); eGFR For African Americans > 60 (> 60); eGFR For Non-African Americans 51 (> 60)
[2021-09-04] MEDS ORDERED: *HR* Heparin 5,000 UNIT/ML VIAL SQ SCH (06:00)
[2021-09-04] MEDS: *HR* Heparin 5,000 UNIT/ML VIAL SQ SCH ×2 (06:41→16:55)
[2021-09-04] MEDS: Isosorbide MONOnitrate (24 HR) 30 MG TAB.ER.24H PO SCH (08:35)
[2021-09-04] MEDS: GlipiZIDE 5 MG TABLET PO SCH ×2 (08:35→16:55)
[2021-09-04] MEDS: Aspirin Enteric Coated 81 MG Tablet PO SCH (08:36)
[2021-09-04] MEDS: Insulin LISPRO 300 UNITS/3 ML VIAL SUBQ SCH ×3 (08:36→16:55)
[2021-09-04] MEDS: Metoprolol XL (24 HR) Succ 50 MG TAB.ER.24H PO SCH (08:36)
[2021-09-04] MEDS: Triamterene/HCTZ 75/50 mg TABLET PO SCH (08:36)
[2021-09-04] MEDS ORDERED: Isosorbide MONOnitrate (24 HR) 60 MG TAB.ER.24H PO SCH (09:00)
[2021-09-04] MEDS: *HR* HYDROcodone/Acet 5/325 mg TABLET PO PRN ×2 (16:59→23:09)
[2021-09-04] MEDS ORDERED: rOPINIRole 1 MG TABLET PO SCH (21:00)
[2021-09-04] MEDS ORDERED: Insulin LISPRO 300 UNITS/3 ML VIAL SUBQ SCH (21:00)
[2021-09-05] MEDS: GlipiZIDE 5 MG TABLET PO SCH (08:19)
[2021-09-05] MEDS: Triamterene/HCTZ 75/50 mg TABLET PO SCH (08:19)
[2021-09-05] MEDS: Aspirin Enteric Coated 81 MG Tablet PO SCH (08:20)
[2021-09-05] MEDS: Isosorbide MONOnitrate (24 HR) 30 MG TAB.ER.24H PO SCH (08:20)
[2021-09-05] MEDS: Metoprolol XL (24 HR) Succ 50 MG TAB.ER.24H PO SCH (08:20)
[2021-09-05] MEDS: Insulin LISPRO 300 UNITS/3 ML VIAL SUBQ SCH ×2 (08:25→12:10)
[2021-09-05] MEDS: *HR* Heparin 5,000 UNIT/ML VIAL SQ SCH (08:25)
[2021-09-05 12:18] VITALS: BP 101/62; PULSE 83; TEMP 97.7; O2SAT 95
== END 2021-09-05 13:18 | disposition home or self-care (01) ==
LOC: INVDIALAB 09:03 → 2ANU 13:12 → OBSVTOIN 09-03 16:10 → INTOOBSV 09-03 16:10 → 2ANU 09-03 16:10
PROVIDERS: ADMIT Internal Medicine Cardiovascular Disease; ATTEND Internal Medicine Cardiovascular Disease